=== PATIENT | female | born 1935 | race Caucasian/White ===

== ENCOUNTER 2018-07-25 22:24 | Inpatient (IN) ==
--- OUTSIDE RECORDS SUMMARY | 2018-07-25 22:29 | External Medical Summary | Continuity of Care Document ---
:1935 Author Name Taj Centeno Address Unavailable Unavailable , Care Team Providers Name Role Phone Unavailable Unavailable Unavailable Josephine Lisa M.D. Unavailable [email or web address] PCP, [email or web address] Unavailable Unavailable Unavailable Unavailable Unavailable Problems Esophageal reflux (530.81) (K21.9) Allergies and Adverse Reactions Allergy history not documented Medications Omeprazole 20 MG Oral Capsule Delayed Release; TAKE 1 CAPSULE DAILY. Taryn Lisa Start: 12-Jun-2011 Quantity: 30 Refills: 5 Procedures Procedures not documented Immunizations Immunizations not documented Plan of Treatment Planned Observations Planned Goals not documented Results No Known Results Results not documented
[2018-07-25] MEDS ORDERED: SODIUM CHLORIDE 0.9% 500 ML IV SCH (22:45)
[2018-07-25 23:02] LABS: Basophils # (auto) 0.02 K/uL (0-0.2); Basophils % (auto) 0.2 %; Eosinophils # (auto) 0.14 K/uL (0-0.5); Eosinophils % (auto) 1.7 %; Hematocrit (blood only) 39.7 % (37-47); Immature Granulocytes # (auto) 0.02 K/uL (0.00-0.02); Immature Granulocytes % (auto) 0.2 %; Lymphocytes # (auto) 2.19 K/uL (1.2-3.4); Mean Corpuscular Hgb Conc 32.7 g/dL (32-36); Mean Corpuscular Volume 88.6 fL (80-100); Mean Platelet Volume 9.5 fL (7.4-10.4); Monocytes # (auto) 0.69 K/uL (0.11-0.59); Monocytes % (auto) 8.5 %; Neutrophils # (auto) 5.05 K/uL (1.4-6.5); Neutrophils % (auto) 62.4 %; Platelet Count 173 K/uL (130-400); RDW Coefficient of Variation 13.9 % (11.5-14.5); RDW Standard Deviation 45.1 fL (36.4-46.3); Red Blood Count 4.48 M/uL (4.2-5.4); White Blood Count 8.11 K/uL (4.8-10.8)
[2018-07-25 23:13] LABS: INR 2.1 (0.9-1.1); Partial Thromboplastin Ratio 1.2; Partial Thromboplastin Time 32.8 Seconds (21.0-31.0); Prothrombin Time 20.3 Seconds (9.0-12.0)
[2018-07-25 23:18] LABS: Alanine Aminotransferase 26 U/L (12-78); Albumin Level 3.2 gm/dl (3.4-5.0); Aspartate Aminotransferase 21 U/L (15-37); BUN Creatinine Ratio 22.2 (10-20); Blood Urea Nitrogen 22 mg/dl (7-18); Calcium 9.4 mg/dl (8.5-10.1); Carbon Dioxide 28 mmol/L (21-32); Chloride 106 mmol/L (98-107); Creatinine Clr Calc Pharmacy 46.2 ml/min; Est GFR (African American) 60.2; Glucose 127 mg/dl (70-99); Magnesium 1.9 mg/dl (1.8-2.4); Potassium 3.2 mmol/L (3.5-5.1); Sodium 142 mmol/L (136-145)
[2018-07-25 23:28] LABS: Albumin Globulin Ratio 0.9 (0.9-2); Alkaline Phosphatase 98 U/L (45-117); Bilirubin,Total 0.8 mg/dl (0.2-1); Globulin 3.6 gm/dl (2.5-4.0); Total Protein 6.8 gm/dl (6.4-8.2); Troponin I < 0.015 ng/ml (0-0.045)
[2018-07-25 23:56] LABS: Appearance Urine Clear (Clear); Bilirubin Urine Negative (Negative); Blood Urine 1+ (Negative); Color Urine Yellow; Epithelial Cell Urine Auto >30 /lpf (0-5); Glucose Urine UA Negative (Negative); Ketones Urine Negative (Negative); Leukocyte Esterase Urine 3+ (Negative); Nitrite Urine Negative (Negative); Protein Urine Negative (Negative); RBC Urine Automated 0-4 /hpf (0-4); Specific Gravity Urine 1.013 (1.000-1.030); Urobilinogen Urine Negative (Negative); WBC Urine Automated >30 /hpf (0-5); pH Urine 5.5 (4.5-7.5)
[2018-07-26 00:13] LABS: Bacteria Urine Automated 1+ (Negative)
[2018-07-26 00:28] LABS: Appearance Urine Clear (Clear); Bilirubin Urine Negative (Negative); Blood Urine 1+ (Negative); Color Urine Yellow; Epithelial Cell Urine Auto >30 /lpf (0-5); Glucose Urine UA Negative (Negative); Ketones Urine Negative (Negative); Leukocyte Esterase Urine 3+ (Negative); Nitrite Urine Negative (Negative); Protein Urine Negative (Negative); RBC Urine Automated 0-4 /hpf (0-4); Urobilinogen Urine Negative (Negative); WBC Urine Automated >30 /hpf (0-5)
[2018-07-26] MEDS ORDERED: dilTIAZem HCl 5 MG/ML 5 ML VIAL IV STA (00:37)
[2018-07-26] MEDS ORDERED: METOPROLOL TARTRATE 1 MG/ML VIAL IV STA (00:46)
[2018-07-26 00:48] LABS: Bacteria Urine Automated 1+ (Negative)
[2018-07-26] MEDS ORDERED: MAGNESIUM SULFATE / D5W 1 GM/100 ML BAG IV ONE (00:48)
[2018-07-26] MEDS ORDERED: POTASSIUM CHLORIDE 20 MEQ TABCR PO STA ×2 (00:48→01:40)
[2018-07-26] MEDS ORDERED: METOPROLOL TARTRATE 1 MG/ML VIAL IV ONE (00:54)
[2018-07-26] MEDS ORDERED: POTASSIUM CHLORIDE 10 MEQ TABCR PO STA ×2 (01:10→02:40)
[2018-07-26] MEDS ORDERED: METOPROLOL TARTRATE 50 MG TAB PO STA (01:33)
--- NOTE | 2018-07-26 01:33 | History & Physical Report ---
Date of Service July 26, 2018 Assessment & Plan (1) Atrial flutter: PAF/AFlutter Patient converted to NSR at the ER. Possibly from uncontrolled BP 2 secondary to dietary indiscretion, hypokalemia INR therapeutic hyperlipidemia on statin Rx Hypokalemia secondary to diuretic Rx mitral regurgitation as per records Hyperglycemia rule out DM skin cancer as per records OBS PCU Continue home beta-juan at current dose, may need titration Replace potassium, hold home diuretic for now Cardiology consult RE recurrent AF/AFl Check hemoglobin A1c DVT prophylaxis. Coumadin INR goal between 2 and 3 Full code History of Present Illness Chief Complaint: Palpitations Primary Care Provider: Pam Richardson, History obtained from patient, family, and records. Medical history significant for PAF (asymptomatic tachybradycardia syndrome not yet requiring PPM as per outpatient Cardiology records) on Coumadin, hypertension, hyperlipidemia, mitral regurgitation as per records, skin cancer as per records. Recent confinement January 2013 for pyelonephritis. Patient noted bothersome palpitations over the weekend without chest pain and shortness of breath. Patient also noted achy headache symptoms. Compliant with home meds. Denies unusual stress. Denies fluid retention. SBP somewhat higher than usual at home 190s. Patient admits to dietary indiscretion, pepperoni pizza consumption etc. At the ER, patient noted to be in rapid A. flutter , cardiac rate 140s. IV Cardizem bolus given at the ER. Patient converted to NSR at the ER. Patient currently uncomfortable going home. Medical History as above TTE July 2017 The left ventricular cavity size is normal. The LV wall thickness is mildly increased (concentric). The left ventricular wall motion is normal. The qualitative LV ejection fraction is 5559% (normal). The left atrium is normal sized. The mitral valve leaflets thickness is mildly increased. Mild mitral regurgitation is present. Moderate tricuspid regurgitation is present. The estimated pulmonary artery systolic pressure is 3540mm Hg. Surgical History : Cystoscopy, BTL Family History : Prostate cancer, A. 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 rofecoxib Allergy Face fiery Verified 07/26/18 01:46 red, no hives or swelling. Sulfa (Sulfonamide Allergy Unknown Verified 07/26/18 01:46 Antibiotics) tetracycline Allergy HIVES Verified 07/26/18 01:46 Home Medications Home Medications Medication Instructions Recorded Confirmed Type atorvastatin 10 mg PO DAILY 07/26/18 07/26/18 History hydrochlorothiazide 12.5 mg PO DAILY 07/26/18 07/26/18 History lisinopril 5 mg PO DAILY 07/26/18 07/26/18 History metoprolol tartrate 25 mg PO BID 07/26/18 07/26/18 History omeprazole 20 mg PO QAM 07/26/18 07/26/18 History temazepam 7.5 mg PO HS 07/26/18 07/26/18 History warfarin 5 mg PO DAILY 07/26/18 07/26/18 History Past Med/Surg History Medical History A-fib High blood pressure Social History Preferred Language: Hebrew Communication Ability: Effective Blender Required: No Beliefs That Will Affect Care: None Current Living Situation: Spouse and Family Other Information That Helps Us Care for You: No Feels Safe at Home: Yes Safety Concerns: Feels Safe At This Time Smoking Status: Never smoker Do You Dip or Chew Tobacco: No Second Hand Exposure: No Hx Alcohol Use: Yes Hx Substance Use: No Review of Systems Review of Systems: As per HPI, all 10 systems reviewed, all other ROS negative Physical Exam Physical Exam: GENERAL: Pleasant, slightly anxious, no respiratory distress SKIN: Normal color, warm HEENT: [place] palpebral conjunctivae, no ptosis, dry buccal mucosa NECK : Supple, no tenderness CHEST : CTA, no tenderness HEART : RRR, systolic murmur ABDOMEN: Some distention, nontender EXTREMITIES : No LE swelling/tenderness, no other conspicuous deformities noted NEUROLOGIC : Coherent, no facial asymmetry, no other gross focality Results & Data Vital Signs (Past 12 Hours) Vital Signs Temp Pulse Pulse Resp BP BP Pulse Ox 07/26/18 00:45 72 16 154/85 H 95 07/26/18 00:36 141 H 18 168/102 H 95 07/26/18 00:15 71 18 144/89 H 98 07/25/18 23:35 76 14 159/81 H 95 07/25/18 22:57 75 16 155/91 H 96 07/25/18 22:31 36.8 C 74 18 166/85 H 96 Laboratory Results Laboratory Results WBC 8.11 K/uL (4.8-10.8) 07/25/18 22:47 RBC 4.48 M/uL (4.2-5.4) 07/25/18 22:47 Hgb 13.0 g/dL (12.0-16.0) 07/25/18 22:47 Hct 39.7 % (37-47) 07/25/18 22:47 MCV 88.6 fL (80-100) 07/25/18 22:47 MCH 29.0 pg (25-34) 07/25/18 22:47 MCHC 32.7 g/dL (32-36) 07/25/18 22:47 RDW Std Deviation 45.1 fL (36.4-46.3) 07/25/18 22:47 RDW Coeff of Brenna 13.9 % (11.5-14.5) 07/25/18 22:47 Plt Count 173 K/uL (130-400) 07/25/18 22:47 MPV 9.5 fL (7.4-10.4) 07/25/18 22:47 Immature Gran % (Auto) 0.2 % 07/25/18 22:47 Neut % (Auto) 62.4 % 07/25/18 22:47 Lymph % (Auto) 27.0 % 07/25/18 22:47 [place] % (Auto) 8.5 % 07/25/18 22:47 Eos % (Auto) 1.7 % 07/25/18 22:47 Baso % (Auto) 0.2 % 07/25/18 22:47 Immature Gran # (Auto) 0.02 K/uL (0.00-0.02) 07/25/18 22:47 Neut # (Auto) 5.05 K/uL (1.4-6.5) 07/25/18 22:47 Lymph # (Auto) 2.19 K/uL (1.2-3.4) 07/25/18 22:47 [place] # (Auto) 0.69 K/uL (0.11-0.59) H 07/25/18 22:47 Eos # (Auto) 0.14 K/uL (0-0.5) 07/25/18 22:47 Baso # (Auto) 0.02 K/uL (0-0.2) 07/25/18 22:47 PT 20.3 Seconds (9.0-12.0) H 07/25/18 22:47 INR 2.1 (0.9-1.1) H 07/25/18 22:47 APTT 32.8 Seconds (21.0-31.0) H 07/25/18 22:47 PTT Ratio 1.2 07/25/18 22:47 Sodium 142 mmol/L (136-145) 07/25/18 22:47 Potassium 3.2 mmol/L (3.5-5.1) L 07/25/18 22:47 Chloride 106 mmol/L (98-107) 07/25/18 22:47 Carbon Dioxide 28 mmol/L (21-32) 07/25/18 22:47 Anion Gap 8.0 (3-11) 07/25/18 22:47 BUN 22 mg/dl (7-18) H 07/25/18 22:47 Creatinine 0.99 mg/dl (0.6-1.2) 07/25/18 22:47 Est Cr Clr Drug Dosing 46.2 ml/min 07/25/18 22:47 Est GFR ( Amer) 60.2 07/25/18 22:47 Est GFR (Non-Af Amer) 52.0 07/25/18 22:47 BUN/Creatinine Ratio 22.2 (10-20) H 07/25/18 22:47 Glucose 127 mg/dl (70-99) H 07/25/18 22:47 Calcium 9.4 mg/dl (8.5-10.1) 07/25/18 22:47 Magnesium 1.9 mg/dl (1.8-2.4) 07/25/18 22:47 Total Bilirubin 0.8 mg/dl (0.2-1) 07/25/18 22:47 AST 21 U/L (15-37) 07/25/18 22:47 ALT 26 U/L (12-78) 07/25/18 22:47 Alkaline Phosphatase 98 U/L (45-117) 07/25/18 22:47 Troponin I < 0.015 ng/ml (0-0.045) 07/25/18 22:47 Total Protein 6.8 gm/dl (6.4-8.2) 07/25/18 22:47 Albumin 3.2 gm/dl (3.4-5.0) L 07/25/18 22:47 Globulin 3.6 gm/dl (2.5-4.0) 07/25/18 22:47 Albumin/Globulin Ratio 0.9 (0.9-2) 07/25/18 22:47 TSH 3.410 uIu/ml (0.300-4.500) 07/25/18 22:47 Urine Color Yellow 07/26/18 00:16 Urine Appearance Clear (Clear) 07/26/18 00:16 Urine pH 6.0 (4.5-7.5) 07/26/18 00:16 Ur Specific [place] 1.010 (1.000-1.030) 07/26/18 00:16 Urine Protein Negative (Negative) 07/26/18 00:16 Urine Glucose (UA) Negative (Negative) 07/26/18 00:16 Urine Ketones Negative (Negative) 07/26/18 00:16 Urine Blood 1+ (Negative) H 07/26/18 00:16 Urine Nitrite Negative (Negative) 07/26/18 00:16 Urine Bilirubin Negative (Negative) 07/26/18 00:16 Urine Urobilinogen Negative (Negative) 07/26/18 00:16 Ur Leukocyte Esterase 3+ (Negative) H 07/26/18 00:16 Urine WBC (Auto) >30 /hpf (0-5) H 07/26/18 00:16 Urine RBC (Auto) 0-4 /hpf (0-4) 07/26/18 00:16 U Hyaline Cast (Auto) 1-5 /lpf (0-5) 07/26/18 00:16 U Epithel Cells (Auto) >30 /lpf (0-5) H 07/26/18 00:16 Urine Bacteria (Auto) 1+ (Negative) H 07/26/18 00:16 Ur Renal Epithelial Cell Not Reportable 07/26/18 00:16 Diagnostic Findings Chest x-ray as per my interpretation elevated right hemidiaphragm, no congestion EKG as per my interpretation : Rate 140, atrial flutter ST depression, inferior and anterolateral leads. CT head initial read negative (1) Atrial flutter Atrial flutter type: typical Qualified Code(s): I48.3 - Typical atrial flutter
[2018-07-26] MEDS ORDERED: WARFARIN SOD 5 MG TAB PO ONE (01:43)
--- NOTE | 2018-07-26 02:09 | Emergency Department Note ---
History of Present Illness General Chief complaint: Arrhythmia/Palpitations History of Present Illness Maximum Pain Intensity: 1 This 83-year-old presents to the ER complaining of heart racing and feeling weak Location: Generalized Quality: Heart racing Severity: Moderate Duration: Tonight Timing: Tonight Context: Patient was concerned and came in Modifying factors: better with nothing; worse with nothing Patient has a history of A. fib. Symptoms felt somewhat similar. Patient denies chest pain, dyspnea, fevers, abdominal pain. Home Medications Home Medications Medication Instructions Recorded Confirmed Type atorvastatin 10 mg PO DAILY 07/26/18 07/26/18 History hydrochlorothiazide 12.5 mg PO DAILY 07/26/18 07/26/18 History lisinopril 5 mg PO DAILY 07/26/18 07/26/18 History metoprolol tartrate 25 mg PO BID 07/26/18 07/26/18 History omeprazole 20 mg PO QAM 07/26/18 07/26/18 History temazepam 7.5 mg PO HS 07/26/18 07/26/18 History warfarin 5 mg PO DAILY 07/26/18 07/26/18 History Allergies Allergy/AdvReac Type Severity Reaction Status Date / Time simvastatin Allergy Unknown Muscle Verified 07/26/18 01:46 aches. rofecoxib Allergy Face fiery Verified 07/26/18 01:46 red, no hives or swelling. Sulfa (Sulfonamide Allergy Unknown Verified 07/26/18 01:46 Antibiotics) tetracycline Allergy HIVES Verified 07/26/18 01:46 Past Med/Surg History Medical History A-fib High blood pressure Social History Feels Safe at Home: Yes Smoking Status: Never smoker Review of Systems All systems reviewed & are unremarkable except as noted in HPI & below Physical Exam Vital Signs Vital Signs - 24 hr 07/25/18 22:31 07/25/18 22:57 07/25/18 23:35 Temperature 36.8 C Temperature Source Oral Sepsis Recent Fever Within 48 Hours No Sepsis New/Unexplained Change in Mental Status No Sepsis Action Taken by Nursing No Action Required Pulse Rate 74 Pulse Rate [Apical] 75 76 Pulse Rhythm Regular Pulse Rhythm [Apical] Regular Regular Respiratory Rate 18 16 14 Respiratory Effort / Characteristics Non-Labored Spontaneous Respiratory Depth Normal Normal Normal Respiratory Pattern Regular Blood Pressure 166/85 H Blood Pressure [Right Arm] 155/91 H 159/81 H Blood Pressure Mean 112 Blood Pressure Mean [Right Arm] 112 107 Blood Pressure Position Sitting Blood Pressure Position [Right Arm] Pulse Oximetry 96 96 95 Oxygen Delivery Method Room Air Room Air Room Air 07/26/18 00:15 07/26/18 00:36 07/26/18 00:45 Temperature Temperature Source Sepsis Recent Fever Within 48 Hours Sepsis New/Unexplained Change in Mental Status Sepsis Action Taken by Nursing Pulse Rate Pulse Rate [Apical] 71 141 H 72 Pulse Rhythm Pulse Rhythm [Apical] Regular Regular Regular Respiratory Rate 18 18 16 Respiratory Effort / Characteristics Non-Labored Spontaneous Respiratory Depth Normal Normal Normal Respiratory Pattern Blood Pressure Blood Pressure [Right Arm] 144/89 H 168/102 H 154/85 H Blood Pressure Mean Blood Pressure Mean [Right Arm] 107 124 108 Blood Pressure Position Blood Pressure Position [Right Arm] Pulse Oximetry 98 95 95 Oxygen Delivery Method Room Air Room Air Room Air 07/26/18 01:57 Temperature Temperature Source Sepsis Recent Fever Within 48 Hours Sepsis New/Unexplained Change in Mental Status Sepsis Action Taken by Nursing Pulse Rate Pulse Rate [Apical] 75 Pulse Rhythm Pulse Rhythm [Apical] Regular Respiratory Rate 16 Respiratory Effort / Characteristics Non-Labored Spontaneous Respiratory Depth Normal Respiratory Pattern Regular Blood Pressure Blood Pressure [Right Arm] 182/78 H Blood Pressure Mean Blood Pressure Mean [Right Arm] 112 Blood Pressure Position Blood Pressure Position [Right Arm] Sitting Pulse Oximetry 100 Oxygen Delivery Method Room Air VITALS: Vitals are noted on the nurse's note and reviewed by myself. Vital signs stable. GENERAL: Positive female, in no acute distress, nondiaphoretic, well-developed well-nourished. SKIN: The skin was without rashes, erythema, edema, or bruising. There is no tenting of the skin. Capillary reflex less than 2 seconds. HEAD: Normocephalic atraumatic. EARS: External auditory canals clear EYES: Pupils equal round and reactive to light and accommodation. Conjunctivae without injection, sclerae without icterus. Extraocular movements intact. NOSE: Patent, turbinates without inflammation or discharge. MOUTH: Mucous membranes moist. Pharynx without erythema or exudate. Uvula midline. Airway patent. Tongue does not deviate. NECK: Supple without nuchal rigidity. No lymphadenopathy. No thyromegaly. Cervical spine is nontender. No JVD. HEART: Regular rate and rhythm LUNGS: Clear to auscultation bilaterally without wheezes, rales or rhonchi. No retractions or accessory muscle use. ABDOMEN: Positive bowel sounds x 4. Normal tympanic percussion. Soft, nontender, without masses or organomegaly. Staples sign negative. No guarding or rebound tenderness. No CVA tenderness MUSCULOSKELETAL: No muscle atrophy, erythema, or edema noted. NEURO: Patient was alert and oriented to person place and time. Normal sensation to light and sharp touch. No focal neurological deficits. Course Administered Medications Discontinued Medications Diltiazem HCl (Cardizem) 10 mg IV NOW STA Stop: 07/26/18 00:38 Last Admin: 07/26/18 00:42 Dose: 10 mg Documented by: [id number] Cosigned by: [id number] Sodium Chloride (Nss) 500 mls @ 999 mls/hr IV .Q31M ADINA Stop: 07/25/18 23:15 Last Infusion: 07/25/18 23:28 Dose: 0 mls/hr Documented by: [id number] Admin: 07/25/18 22:57 Dose: 999 mls/hr Documented by: [id number] Magnesium Sulfate/Dextrose (Magnesium Sulfate / D5w) 1 gm in 100 mls @ 100 mls/hr IV ONE ONE Stop: 07/26/18 01:47 Last Infusion: 07/26/18 02:03 Dose: 0 mls/hr Documented by: [id number] Admin: 07/26/18 00:57 Dose: 100 mls/hr Documented by: [id number] Metoprolol Tartrate (Lopressor) Confirm Administered Dose 5 mg IV .STK-MED ONE Stop: 07/26/18 00:55 Last Admin: 07/26/18 00:56 Dose: Not Given Documented by: [id number] Metoprolol Tartrate (Lopressor) 25 mg PO NOW STA Stop: 07/26/18 01:34 Last Admin: 07/26/18 01:50 Dose: 25 mg Documented by: [id number] Potassium Chloride (Klor-Con M20) 40 meq PO NOW STA Stop: 07/26/18 00:49 Last Admin: 07/26/18 00:57 Dose: 40 meq Documented by: [id number] Potassium Chloride (Klor-Con M10) 30 meq PO NOW STA Stop: 07/26/18 01:11 Last Admin: 07/26/18 01:50 Dose: 30 meq Documented by: [id number] Potassium Chloride (Klor-Con M20) 40 meq PO NOW STA Stop: 07/26/18 01:41 Last Admin: 07/26/18 01:50 Dose: Not Given Documented by: [id number] Warfarin Sodium (Coumadin) 5 mg PO NOW ONE Stop: 07/26/18 01:44 Last Admin: 07/26/18 01:50 Dose: 5 mg Documented by: [id number] Cosigned by: [id number] Medical Decision Making Medical Records Attestation: I reviewed the patient's medical records. Home Medications Current Medication List: was personally reviewed by me Laboratory Data Attestation: I reviewed the patient's lab results. Result diagrams: 07/25/18 22:47 07/25/18 22:47 Lab Results 07/25/18 07/25/18 07/25/18 Range/Units 22:47 22:47 22:47 WBC 8.11 (4.8-10.8) K/uL RBC 4.48 (4.2-5.4) M/uL Hgb 13.0 (12.0-16.0) g/dL Hct 39.7 (37-47) % MCV 88.6 (80-100) fL MCH 29.0 (25-34) pg MCHC 32.7 (32-36) g/dL RDW Std Deviation 45.1 (36.4-46.3) fL RDW Coeff of Brenna 13.9 (11.5-14.5) % Plt Count 173 (130-400) K/uL MPV 9.5 (7.4-10.4) fL Immature Gran % (Auto) 0.2 % Neut % (Auto) 62.4 % Lymph % (Auto) 27.0 % [place] % (Auto) 8.5 % Eos % (Auto) 1.7 % Baso % (Auto) 0.2 % Immature Gran # (Auto) 0.02 (0.00-0.02) K/uL Neut # (Auto) 5.05 (1.4-6.5) K/uL Lymph # (Auto) 2.19 (1.2-3.4) K/uL [place] # (Auto) 0.69 H (0.11-0.59) K/uL Eos # (Auto) 0.14 (0-0.5) K/uL Baso # (Auto) 0.02 (0-0.2) K/uL PT 20.3 H (9.0-12.0) Seconds INR 2.1 H (0.9-1.1) APTT 32.8 H (21.0-31.0) Seconds PTT Ratio 1.2 Sodium 142 (136-145) mmol/L Potassium 3.2 L (3.5-5.1) mmol/L Chloride 106 (98-107) mmol/L Carbon Dioxide 28 (21-32) mmol/L Anion Gap 8.0 (3-11) BUN 22 H (7-18) mg/dl Creatinine 0.99 (0.6-1.2) mg/dl Est Cr Clr Drug Dosing 46.2 ml/min Est GFR ( Amer) 60.2 Est GFR (Non-Af Amer) 52.0 BUN/Creatinine Ratio 22.2 H (10-20) Glucose 127 H (70-99) mg/dl Calcium 9.4 (8.5-10.1) mg/dl Magnesium 1.9 (1.8-2.4) mg/dl Total Bilirubin 0.8 (0.2-1) mg/dl AST 21 (15-37) U/L ALT 26 (12-78) U/L Alkaline Phosphatase 98 (45-117) U/L Troponin I < 0.015 (0-0.045) ng/ml Total Protein 6.8 (6.4-8.2) gm/dl Albumin 3.2 L (3.4-5.0) gm/dl Globulin 3.6 (2.5-4.0) gm/dl Albumin/Globulin Ratio 0.9 (0.9-2) TSH 3.410 (0.300-4.500) uIu/ml Urine Color Urine Appearance (Clear) Urine pH (4.5-7.5) Ur Specific [place] (1.000-1.030) Urine Protein (Negative) Urine Glucose (UA) (Negative) Urine Ketones (Negative) Urine Blood (Negative) Urine Nitrite (Negative) Urine Bilirubin (Negative) Urine Urobilinogen (Negative) Ur Leukocyte Esterase (Negative) Urine WBC (Auto) (0-5) /hpf Urine RBC (Auto) (0-4) /hpf U Hyaline Cast (Auto) (0-5) /lpf U Epithel Cells (Auto) (0-5) /lpf Urine Bacteria (Auto) (Negative) Ur Renal Epithelial Cell 07/25/18 07/26/18 Range/Units 23:47 00:16 WBC (4.8-10.8) K/uL RBC (4.2-5.4) M/uL Hgb (12.0-16.0) g/dL Hct (37-47) % MCV (80-100) fL MCH (25-34) pg MCHC (32-36) g/dL RDW Std Deviation (36.4-46.3) fL RDW Coeff of Brenna (11.5-14.5) % Plt Count (130-400) K/uL MPV (7.4-10.4) fL Immature Gran % (Auto) % Neut % (Auto) % Lymph % (Auto) % [place] % (Auto) % Eos % (Auto) % Baso % (Auto) % Immature Gran # (Auto) (0.00-0.02) K/uL Neut # (Auto) (1.4-6.5) K/uL Lymph # (Auto) (1.2-3.4) K/uL [place] # (Auto) (0.11-0.59) K/uL Eos # (Auto) (0-0.5) K/uL Baso # (Auto) (0-0.2) K/uL PT (9.0-12.0) Seconds INR (0.9-1.1) APTT (21.0-31.0) Seconds PTT Ratio Sodium (136-145) mmol/L Potassium (3.5-5.1) mmol/L Chloride (98-107) mmol/L Carbon Dioxide (21-32) mmol/L Anion Gap (3-11) BUN (7-18) mg/dl Creatinine (0.6-1.2) mg/dl Est Cr Clr Drug Dosing ml/min Est GFR ( Amer) Est GFR (Non-Af Amer) BUN/Creatinine Ratio (10-20) Glucose (70-99) mg/dl Calcium (8.5-10.1) mg/dl Magnesium (1.8-2.4) mg/dl Total Bilirubin (0.2-1) mg/dl AST (15-37) U/L ALT (12-78) U/L Alkaline Phosphatase (45-117) U/L Troponin I (0-0.045) ng/ml Total Protein (6.4-8.2) gm/dl Albumin (3.4-5.0) gm/dl Globulin (2.5-4.0) gm/dl Albumin/Globulin Ratio (0.9-2) TSH (0.300-4.500) uIu/ml Urine Color Yellow Yellow Urine Appearance Clear Clear (Clear) Urine pH 5.5 6.0 (4.5-7.5) Ur Specific [place] 1.013 1.010 (1.000-1.030) Urine Protein Negative Negative (Negative) Urine Glucose (UA) Negative Negative (Negative) Urine Ketones Negative Negative (Negative) Urine Blood 1+ H 1+ H (Negative) Urine Nitrite Negative Negative (Negative) Urine Bilirubin Negative Negative (Negative) Urine Urobilinogen Negative Negative (Negative) Ur Leukocyte Esterase 3+ H 3+ H (Negative) Urine WBC (Auto) >30 H >30 H (0-5) /hpf Urine RBC (Auto) 0-4 0-4 (0-4) /hpf U Hyaline Cast (Auto) 1-5 1-5 (0-5) /lpf U Epithel Cells (Auto) >30 H >30 H (0-5) /lpf Urine Bacteria (Auto) 1+ H 1+ H (Negative) Ur Renal Epithelial Cell Not Reportable Not Reportable Imaging Data Attestation: I personally reviewed and interpreted this imaging study as follows : MDM Narrative Prior records/ancillary studies reviewed and summarized above. Nursing notes reviewed. Additional history obtained from family. The patient's history was concerning for heart racing and weakness. Differential diagnosis: Etiologies such as metabolic, infection, hypo/hyperglycemia, electrolyte abnormalities, cardiac sources, intracerebral event, toxicologic, neurologic, as well as others were entertained. Physical examination: As above. ER treatment provided: IV Lock Cardizem, IV fluids On reassessment the patient felt better. Diagnostics interpretation by me: ECG: Normal sinus, normal intervals, no acute ST-T wave changes. Impression normal sinus rhythm interpreted by myself Repeat EKG shows a flutter 2-1.. Patient was given Cardizem and converted. The labs revealed hypokalemia this is replaced orally. Negative troponin Imaging studies: Chest x-ray with no acute consolidation, pneumothorax or free air per my interpretation Negative head scan per radiology Consultation: A consultation was placed with the hospitalist, Dr Candelaria. The case was discussed and diagnostics were reviewed. The patient was evaluated in the ER for further treatment. Exam and history seem consistent with atrial flutter with weakness and heart racing. Patient converted with Cardizem. Patient requested to stay. Medicine was consulted. By the evaluation outlined above emergent etiologies such as infection, intracerebral event, toxologic, neurologic, abnormalities blood glucose, metabolic, as well as others were deemed relatively unlikely. The pt informed about the findings as listed above. All questions were answered and pleased with the treatment. Case reviewed with my attending The chart was completed utilizing [employer] Speech voice recognition software. Grammatical errors, random word insertions, pronoun errors, and incomplete sentences are an occassional consequence of this system due to software limitations, ambient noise, and hardware issues. Any formal questions or lynette rns about the content, text, or information contained within the body of this dictation should be directly addressed to the physician banking assistant for clarification. Impression & Plan Atrial flutter Discharge Plan Visit Data Chief Complaint: Arrhythmia/Palpitations ED Provider: Alfonso Logan ED Midlevel Provider: Nya Livingston Discharge Problem: Atrial flutter Patient Disposition: Being Evaluated by Hospitalist Condition: Fair Forms Stand Alone Forms: My [facility] [place] [employer] Prescriptions Prescriptions: No Action atorvastatin 10 mg tablet 10 mg PO DAILY RF: 0 temazepam 7.5 mg capsule 7.5 mg PO HS RF: 0 warfarin 5 mg tablet 5 mg PO DAILY RF: 0 omeprazole 20 mg capsule,delayed release(DR/EC) 20 mg PO QAM RF: 0 lisinopril 5 mg tablet 5 mg PO DAILY RF: 0 hydrochlorothiazide 25 mg tablet 12.5 mg PO DAILY RF: 0 metoprolol tartrate 25 mg tablet 25 mg PO BID RF: 0 Referrals Referrals: Pam Richardson DO [Primary Care Provider] - Discharge Problem: Atrial flutter Qualifiers: Atrial flutter type: typical Qualified Code(s): I48.3 - Typical atrial flutter
--- NOTE | 2018-07-26 02:15 | Emergency Department Note ---
ED Visit Note I have personally evaluated this patient examined her and reviewed the pertinent labs and data. I have discussed the case with Eliane Livingston, the physician orthopaedic physician assistant and agree with the plan. Please refer to the PA note. This patient has had a rapid heart rate. When she came in she was in normal sinus she did develop rapid A. fib/flutter and was given Cardizem and immediately converted. She has no chest pain. her potassium is mildly low at 3.2 and her mag is also mildly low at 1.9 .she was repleted with these. She looks well on my exam and I do think she needs to be admitted/observe for further treatment and evaluation of a rapid A. fib and to do a cardiac rule out. . : Atrial flutter Qualifiers: Atrial flutter type: typical Qualified Code(s): I48.3 - Typical atrial flutter
[2018-07-26] MEDS ORDERED: TRAMADOL HCL 50 MG TABLET PO PRN (02:40)
[2018-07-26] MEDS ORDERED: LACTATED RINGER'S 1,000 ML IV ONE (02:40)
[2018-07-26] MEDS ORDERED: NITROGLYCERIN SL 0.4 MG/TAB TAB SL PRN (02:40)
[2018-07-26] MEDS ORDERED: PROMETHAZINE HCL 12.5 MG in SODIUM CHLORIDE 0.9% 50 ML IV PRN (02:40)
[2018-07-26] MEDS ORDERED: ACETAMINOPHEN 325 MG TAB PO PRN (02:40)
[2018-07-26 05:57] LABS: Basophils # (auto) 0.03 K/uL (0-0.2); Basophils % (auto) 0.4 %; Eosinophils # (auto) 0.13 K/uL (0-0.5); Eosinophils % (auto) 1.5 %; Hematocrit (blood only) 40.9 % (37-47); Hemoglobin 13.5 g/dL (12.0-16.0); Immature Granulocytes # (auto) 0.02 K/uL (0.00-0.02); Immature Granulocytes % (auto) 0.2 %; Lymphocytes # (auto) 2.53 K/uL (1.2-3.4); Lymphocytes % (auto) 29.8 %; Mean Corpuscular Volume 88.5 fL (80-100); Mean Platelet Volume 9.3 fL (7.4-10.4); Monocytes % (auto) 9.4 %; Neutrophils # (auto) 4.99 K/uL (1.4-6.5); Neutrophils % (auto) 58.7 %; Platelet Count 178 K/uL (130-400); RDW Coefficient of Variation 13.6 % (11.5-14.5); RDW Standard Deviation 44.1 fL (36.4-46.3); Red Blood Count 4.62 M/uL (4.2-5.4)
[2018-07-26 06:27] LABS: BUN Creatinine Ratio 19.9 (10-20); Creatinine Clr Calc Pharmacy 55.3 ml/min; Est GFR (African American) 75.6; Est GFR (Non-African American) 65.3; INR 1.9 (0.9-1.1); Potassium 4.1 mmol/L (3.5-5.1); Prothrombin Time 18.8 Seconds (9.0-12.0)
--- NOTE | 2018-07-26 06:43 | CT Scan Report ---
CT OF THE HEAD WITHOUT CONTRAST CLINICAL HISTORY: Headache. Fall. Anticoagulation. COMPARISON STUDY: No previous studies for comparison. CT DOSE: 614.27 mGy.cm TECHNIQUE: Helical axial images of the head were obtained without IV contrast. Automated exposure con trol was utilized for the study. A dose lowering technique was utilized adhering to the principles o f ALARA. FINDINGS: No acute intracranial hemorrhage, midline shift or mass effect is present. Jugular system i s normal. Basilar cisterns are patent. There are no extra-axial collections. There are no findings to suggest acute dural sinus thrombosis or acute territorial infarct. No calvarial fracture is present. Visualized portions of the sinuses and mastoid air cells are clear. IMPRESSION: 1. No acute intracranial findings. 2. No calvarial fracture. Electronically signed by: Inocencio Rivera M.D. 07/26/2018 6:42 AM
[2018-07-26 06:49] LABS: Estimated Average Glucose 117 mg/dl; Hemoglobin A1C 5.7 % (4.5-5.6)
--- NOTE | 2018-07-26 06:53 | XRay Report ---
XR chest 2V routine CLINICAL HISTORY: 83 years-old Female presenting with weakness. TECHNIQUE: PA and lateral views of the chest were obtained. COMPARISON: 04/07/2012 and 11/16/2014. FINDINGS: Atherosclerosis of the aortic arch. Cardiac silhouette mildly enlarged. Lungs are hyperinflated. Calc ified granuloma suggested at the left lung base. No other focal opacity. No pleural effusion or pneum othorax. Degenerative changes of the thoracic spine. Upper abdomen normal. IMPRESSION: 1. Hyperinflation may suggest emphysema or other obstructive lung disease. No focal infiltrate to martinez ggest pneumonia. Electronically signed by: Thanh Garcia M.D. 07/26/2018 6:52 AM
[2018-07-26] MEDS ORDERED: METOPROLOL TARTRATE 25 MG TAB PO SCH ×3 (09:00→21:00)
--- NOTE | 2018-07-26 09:06 | Cardiology Consultation ---
Date of Consultation July 26, 2018 Assessment & Plan (1) Atrial flutter: Telemetry reveals paroxysmal supraventricular tachycardia versus atrial flutter. Patient with history of asymptomatic tachybradycardia syndrome. With history of atrial fibrillation, recommend transition of metoprolol to sotalol 80 mg twice daily. Will monitor telemetry as well as daily ECG. Continue Coumadin for goal INR of 2.0-3.0. Maintain serum potassium level greater than 4.0 and serum magnesium level greater than 2.0 gm/dL. (2) HTN (hypertension): Uncontrolled on admission. Improved this a.m. Continue to monitor. Continue outpatient medications. (3) Paroxysmal atrial fibrillation: Discontinue metoprolol in favor of sotalol loading as noted above. Daily ECG. Continue warfarin. (4) H/O tachycardia-bradycardia syndrome: Potential need for pacemaker implantation discussed with patient. All questions answered satisfaction. Monitor telemetry. (5) Possible urinary tract infection: Await culture result. History of Present Illness Reason for Consultation: Paroxysmal atrial fibrillation Requesting Physician: Dr. Mio Parikh Attending Physician: Williams Rousseau MD History of Present Illness 83-year-old female presented emergency department with recurrent palpitations. Followed by the undersigned at the outpatient clinic for history of paroxysmal atrial fibrillation and supraventricular tachycardia. Most recent 14 days ZIO monitor performed July 2017 demonstrating 87 salvos of paroxysmal suprave ntricular tachycardia as well as 2 episodes of asymptomatic sinus bradycardia. No evidence of recurrent atrial fibrillation. Patient developed palpitations on Thursday evening. Reported brief episodes of rapid heart rate. Symptoms became more significant and prolonged on Thursday. Denies any associated chest discomfort, lightheadedness, dizziness, syncope, or near syncope. No recent febrile illness. Denies frequency, urgency, dysuria, cough, or sputum production. Functional capacity stable. [facility] [place] [facility] [facility] [place] [facility] Active around her home. No signs/symptoms of GI/ blood loss. Mild hypokalemia noted on admission. Reports elevated blood pressures per home cuff prior to admission. Paroxysmal atrial fibrillation reported on presentation treated with IV Cardizem. There is no ECG demonstrating dysrhythmia, however, telemetry strips reveal supraventricular tachycardia versus atrial flutter. Currently sinus rhythm on telemetry. She offers no other concerns/complaints at this time. Most recent testing results listed below. Allergies Allergy/AdvReac Type Severity Reaction Status Date / Time simvastatin Allergy Unknown Muscle Verified 07/26/18 01:46 aches. rofecoxib Allergy Face fiery Verified 07/26/18 01:46 red, no hives or swelling. Sulfa (Sulfonamide Allergy Unknown Verified 07/26/18 01:46 Antibiotics) tetracycline Allergy HIVES Verified 07/26/18 01:46 Home Medications Home Medications Medication Instructions Recorded Confirmed Type atorvastatin 10 mg PO DAILY 07/26/18 07/26/18 History hydrochlorothiazide 12.5 mg PO DAILY 07/26/18 07/26/18 History lisinopril 5 mg PO DAILY 07/26/18 07/26/18 History metoprolol tartrate 25 mg PO BID 07/26/18 07/26/18 History omeprazole 20 mg PO QAM 07/26/18 07/26/18 History temazepam 7.5 mg PO HS 07/26/18 07/26/18 History warfarin 5 mg PO DAILY 07/26/18 07/26/18 History Patient History Medical History A-fib High blood pressure Social History Preferred Language: Czech Communication Ability: Effective Switch Technician Required: No Beliefs That Will Affect Care: None Current Living Situation: Spouse and Family Other Information That Helps Us Care for You: No Feels Safe at Home: Yes Safety Concerns: Feels Safe At This Time Smoking Status: Never smoker Do You Dip or Chew Tobacco: No Second Hand Exposure: No Hx Alcohol Use: Yes Hx Substance Use: No Review of Systems Review of Systems: All systems reviewed & are unremarkable except as noted in HPI & below Physical Exam Physical Exam: General: NAD, AAO x3, well nourished. HEENT: Normocephalic. Atraumatic. Conjunctiva pink, no scleral icterus. Neck: No carotid bruits, the carotid upstrokes are brisk. No JVD. No HJR Heart: Regular normal S-1 and S-2 no S-3 or S-4 gallop. No murmurs or rub appreciated. PMI is not displaced. No RV heave. Lungs: Clear bilateral without rales , rhonchi, or wheeze. Abdomen: Normal bowel sounds. Soft. Nontender. No masses or organomegaly. No abdominal bruits. Extremities: No clubbing, cyanosis, or edema. Pulses: radial=2/4, Dorsalis pedis =2/4, posterior tibial=2/4. Neuro: Cranial nerves grossly intact. No focal motor deficit. Results & Data Vital Signs (Past 12 Hours) Vital Signs Temp Pulse Pulse Resp BP BP Pulse Ox 07/26/18 07:13 36.8 C 50 L 19 124/71 95 07/26/18 02:42 36.9 C 60 18 148/71 H 92 07/26/18 02:27 62 18 172/82 H 95 07/26/18 01:57 75 16 182/78 H 100 07/26/18 00:45 72 16 154/85 H 95 07/26/18 00:36 141 H 18 168/102 H 95 07/26/18 00:15 71 18 144/89 H 98 07/25/18 23:35 76 14 159/81 H 95 07/25/18 22:57 75 16 155/91 H 96 07/25/18 22:31 36.8 C 74 18 166/85 H 96 Diagnostic Findings 14 Day Zio 07/2017: The predominant underlying rhythm is sinus. Evidence of asymptomatic tachy-pari syndrome with 87 salvos of paroxysmal supraventricular tachycardia as well as 2 episodes of asymptomatic sinus bradycardia with a heart rate of 40 beats per minute. Symptoms correlated with sinus rhythm and sensed supraventricular ectopy. 2D echocardiogram report 08/06/2017: The left ventricular cavity size is normal. The LV wall thickness is mildly increased (concentric). The left ventricular wall motion is normal. The qualitative LV ejection fraction is 55-59% (normal). The left atrium is normal sized. The mitral valve leaflets thickness is mildly increased. Mild mitral regurgitation is present. Moderate tricuspid regurgitation is present. The estimated pulmonary artery systolic pressure is 35-40mmHg. (1) Atrial flutter Atrial flutter type: typical Qualified Code(s): I48.3 - Typical atrial flutter (2) HTN (hypertension) Hypertension type: essential hypertension Qualified Code(s): I10 - Essential (primary) hypertension
[2018-07-26] MEDS: SOTALOL HCL 80 MG TAB PO SCH ×2 (09:28→21:14)
--- NOTE | 2018-07-26 11:22 | Hospitalist Progress Note ---
Date of Service July 26, 2018 Assessment & Plan (1) Atrial flutter: Present on admission with palpitation with Atrial flutter with HR in 140's Possible related to hypokalemia vs UTI Received Cardizem 10mg x1 in the Converted to NSR in the ER Cardiology on board Metoprolol changed to sotalol 80mg BID Cardio recommended to keep Mg above 2 and K above 4 Continue coumadin with INR goal btw 2 to 3 Will check EKG daily Continue monitor in telemetry Paroxysmal atrial fibrillation Rate controlled Metoprolol changed to sotalol Continue coumadin Monitor INR Tachycardia-bradycardia syndrome Asymptomatic HR in telemonitor currently btw 45's to 55's Might need pacemaker implantation in future Cardiology on board Abnormal UA UA positive for Leukocytes and 1+bacteria Denies any urinary symptoms, afebrile and no WBC Follow up urine cx Will hold on abx for now HTN BP elevated on admission BP improves today Will resume HCTZ in am Continue monitor BP Hypokalemia K on admission 3.2 K replaced on admission K today 4.1 Monitor BMP DVT px on coumadin with INR 1.9 CODE STATUS FULL CODE Disposition Continue monitor in tele Subjective Pt was seen and examined Lying in bed with no distress Pt said that she feels fine today She said that she does not have the palpitation anymore She said that she is not having any urinary symptoms Denies any chest pain, palpitation, dizziness and SOB Physical Exam Physical Exam: General- No acute distress Head- atraumatic Eyes- PERRL, EOMI, ENT- oropharynx clear Neck- supple, no JVD Lungs- clear to auscultation Heart- +bradycardia, no murmur Abdomen- normal bowel sounds, soft, nontender Extremities- no calf tenderness Neuro- alert, oriented x 3; PERRL, EOMI; no facial palsy; no dysarthria Skin- warm & dry Results & Data Vital Signs (Past 12 Hours) Vital Signs Temp Pulse Pulse Resp BP BP Pulse Ox 07/26/18 10:48 36.3 C L 49 L 19 143/61 H 94 07/26/18 08:00 48 L 07/26/18 07:13 36.8 C 50 L 19 124/71 95 07/26/18 02:42 36.9 C 60 18 148/71 H 92 07/26/18 02:27 62 18 172/82 H 95 07/26/18 01:57 75 16 182/78 H 100 07/26/18 00:45 72 16 154/85 H 95 07/26/18 00:36 141 H 18 168/102 H 95 07/26/18 00:15 71 18 144/89 H 98 07/25/18 23:35 76 14 159/81 H 95 (1) Atrial flutter Atrial flutter type: typical Qualified Code(s): I48.3 - Typical atrial flutter
[2018-07-26] MEDS ORDERED: SOD PHOSPHATE/SOD BIPHOSPHATE ENEMA 132 ML BTL PR PRN (19:49)
[2018-07-27 06:15] LABS: INR 1.9 (0.9-1.1); Prothrombin Time 18.8 Seconds (9.0-12.0)
[2018-07-27 06:20] LABS: BUN Creatinine Ratio 19.5 (10-20); Calcium 8.9 mg/dl (8.5-10.1); Creatinine Clr Calc Pharmacy 47.1 ml/min; Est GFR (African American) 62.5; Est GFR (Non-African American) 53.9; Magnesium 2.3 mg/dl (1.8-2.4); Potassium 4.3 mmol/L (3.5-5.1)
[2018-07-27] MEDS: SOTALOL HCL 80 MG TAB PO SCH ×2 (08:55→20:27)
--- NOTE | 2018-07-27 10:18 | Cardiology Progress Note ---
Date of Service July 27, 2018 Assessment & Plan (1) Atrial flutter: No recurrent atrial dysrhythmias overnight. Asymptomatic sinus bradycardia noted. Continue sotalol loading, 80 mg twice daily. Repeat ECG in a.m. Tentative plan for discharge tomorrow. Continue Coumadin for goal INR of 2.0-3.0. (2) HTN (hypertension): Controlled. Continue to monitor. Continue outpatient medications. (3) Paroxysmal atrial fibrillation: Continue sotalol loading, warfarin, daily ECG. (4) H/O tachycardia-bradycardia syndrome: Potential need for pacemaker implantation discussed with patient. All questions answered satisfaction. Monitor telemetry. (5) Possible urinary tract infection: Culture negative. Subjective Patient seen and examined the bedside. Tolerating sotalol. Sinus bradycardia at rest. Ambulating the garcia without symptoms. Denies lightheadedness, dizziness, syncope, or near syncope. No recurrent atrial dysrhythmias on telemetry. Offers no complaints at this time. Review of Systems Review of Systems: All systems reviewed & are unremarkable except as noted in HPI & below Physical Exam Physical Exam: General: NAD, AAO x3, well nourished. HEENT: Normocephalic. Atraumatic. Conjunctiva pink, no scleral icterus. Neck: No carotid bruits, the carotid upstrokes are brisk. No JVD. No HJR Heart: Regular normal S-1 and S-2 no S-3 or S-4 gallop. No murmurs or rub appreciated. PMI is not displaced. No RV heave. Lungs: Clear bilateral without rales , rhonchi, or wheeze. Abdomen: Normal bowel sounds. Soft. Nontender. No masses or organomegaly. No abdominal bruits. Extremities: No clubbing, cyanosis, or edema. Pulses: radial=2/4, Dorsalis pedis =2/4, posterior tibial=2/4. Neuro: Cranial nerves grossly intact. No focal motor deficit. Results & Data Vital Signs (Past 12 Hours) Vital Signs Temp Pulse Resp BP Pulse Ox 07/27/18 09:57 97 07/27/18 03:52 36.5 C 47 L 18 133/70 93 07/26/18 23:33 36.8 C 49 L 17 130/72 94 (1) Atrial flutter Atrial flutter type: typical Qualified Code(s): I48.3 - Typical atrial flutter (2) HTN (hypertension) Hypertension type: essential hypertension Qualified Code(s): I10 - Essential (primary) hypertension
--- NOTE | 2018-07-27 15:00 | Hospitalist Progress Note ---
Date of Service July 27, 2018 Assessment & Plan (1) Atrial flutter: Present on admission with palpitation with Atrial flutter with HR in 140's Possible related to hypokalemia vs UTI Received Cardizem 10mg x1 in the Converted to NSR in the ER Cardiology on board Metoprolol changed to sotalol 80mg BID Cardio recommended to keep Mg above 2 and K above 4 Continue coumadin with INR goal btw 2 to 3 Patient converted to sinus with rate controlled Possible discharge home tomorrow if no further evidence of cardiac arrhythmia Paroxysmal atrial fibrillation Rate controlled Continue on sotalol On chronic anticoagulation with Coumadin Tachycardia-bradycardia syndrome Asymptomatic Might need pacemaker implantation in future Cardiology on board Abnormal UA UA positive for Leukocytes and 1+bacteria Denies any urinary symptoms, afebrile and no WBC Urine culture no bacterial growth HTN Blood pressure stable Hypokalemia Replaced, potassium within normal limit DVT on chemo CODE STATUS FULL CODE Disposition Plan for discharge home possibly tomorrow 07/28/2018 Subjective No complaint of shortness of breath, dizziness pain, palpitation Noted to ambulate independently without any dyspnea on exertion or anginal symptom Remains sinus with rate controlled Plan to discharge home possible tomorrow Physical Exam Constitutional: WD/WN, vitals as above Eyes: PERRL, conjunctivae normal, anicteric sclerae ENMT: external ear and nose normal, oropharynx normal Neck: trachea midline, no thyromegaly Respiratory: normal respiratory effort, lungs clear to auscultation Cardiovascular: RRR, no murmur, no edema Gastrointestinal (Abdomen): normal bowel sounds, soft, nontender, no hepatosplenomegaly Musculoskeletal: no cyanosis or clubbing, extremities motor strength 5/5 Skin: no rashes, warm and dry Neurologic: PERRL, EOMI, accommodation nl, no face palsy, no dysarthria Psychiatric: A+Ox3, euthymic affect Results & Data Vital Signs (Past 12 Hours) Vital Signs Temp Pulse Pulse Resp BP Pulse Ox 07/27/18 10:52 37 C 45 L 18 111/62 07/27/18 09:57 97 07/27/18 08:00 36.2 C L 43 L 50 L 20 145/71 H 96 07/27/18 03:52 36.5 C 47 L 18 133/70 93 (1) Atrial flutter Atrial flutter type: typical Qualified Code(s): I48.3 - Typical atrial flutter
[2018-07-27] MEDS ORDERED: WARFARIN SOD 5 MG TAB PO SCH (16:00)
[2018-07-28 05:50] LABS: INR 1.6 (0.9-1.1); Prothrombin Time 15.7 Seconds (9.0-12.0)
--- NOTE | 2018-07-28 08:37 | Cardiology Progress Note ---
Date of Service July 28, 2018 Assessment & Plan (1) Atrial flutter: No recurrent atrial dysrhythmias overnight. Asymptomatic sinus bradycardia noted. Continue sotalol loading, 80 mg twice daily. Repeat ECG after 9 AM dose today. Discharge to home today if QTc remains in normal range. Continue Coumadin for goal INR of 2.0-3.0. Outpatient cardiology follow-up in 2 weeks. (2) HTN (hypertension): Controlled. Continue to monitor. Continue outpatient medications. (3) Paroxysmal atrial fibrillation: Continue sotalol loading, warfarin, daily ECG. (4) H/O tachycardia-bradycardia syndrome: Potential need for pacemaker implantation discussed with patient. All questions answered satisfaction. Monitor telemetry. (5) Possible urinary tract infection: Culture negative. Subjective Patient seen and examined at the bedside. Remains in sinus rhythm on telemetry. Sinus bradycardia with heart rates as low as 40 bpm recorded during presumed hours of sleep. Heart rate ranging from 50 to 65 bpm while awake. No lightheadedness, dizziness, syncope, or near syncope. No evidence of recurrent atrial fibrillation, flutter, or PSVT. Patient voices concern regarding elevated blood pressure last evening. Offers no other concerns/complaints at this time. Review of Systems Review of Systems: All systems reviewed & are unremarkable except as noted in HPI & below Physical Exam Physical Exam: General: NAD, AAO x3, well nourished. HEENT: Normocephalic. Atraumatic. Conjunctiva pink, no scleral icterus. Neck: No carotid bruits, the carotid upstrokes are brisk. No JVD. No HJR Heart: Regular normal S-1 and S-2 no S-3 or S-4 gallop. No murmurs or rub appreciated. PMI is not displaced. No RV heave. Lungs: Clear bilateral without rales , rhonchi, or wheeze. Abdomen: Normal bowel sounds. Soft. Nontender. No masses or organomegaly. No abdominal bruits. Extremities: No clubbing, cyanosis, or edema. Pulses: radial=2/4, Dorsalis pedis =2/4, posterior tibial=2/4. Neuro: Cranial nerves grossly intact. No focal motor deficit. Results & Data Vital Signs (Past 12 Hours) Vital Signs Temp Pulse Pulse Resp BP Pulse Ox 07/28/18 07:02 36.8 C 51 L 18 133/70 97 06/12/19 03:10 36.9 C 55 L 16 155/70 H 95 07/27/18 22:46 36.5 C 50 L 16 158/70 H 96 (1) Atrial flutter Atrial flutter type: typical Qualified Code(s): I48.3 - Typical atrial flutter (2) HTN (hypertension) Hypertension type: essential hypertension Qualified Code(s): I10 - Essential (primary) hypertension
[2018-07-28] MEDS: SOTALOL HCL 80 MG TAB PO SCH (09:02)
--- NOTE | 2018-07-28 13:41 | Hospitalist Progress Note ---
Date of Service July 28, 2018 Assessment & Plan (1) Atrial flutter: Samara in sinus with rate controlled, completed sotalol load, Twelve-lead EKG after 9 AM sotalol dose shows QTC 432 Stable to be discharged home today Cardiology follow-up in clinic in 4 to 6 weeks Patient admitted with complaint of with palpitation with Atrial flutter with HR in 140's Possible related to hypokalemia vs UTI Received Cardizem 10mg x1 in the Converted to NSR in the ER Cardiology on board Metoprolol changed to sotalol 80mg BID Cardio recommended to keep Mg above 2 and K above 4 Continue coumadin with INR goal btw 2 to 3 Patient converted to sinus with rate controlled Paroxysmal atrial fibrillation Rate controlled Continue on sotalol On chronic anticoagulation with Coumadin Tachycardia-bradycardia syndrome Asymptomatic Might need pacemaker implantation in future Cardiology on board Patient follow-up with cardiology scheduled already Abnormal UA UA positive for Leukocytes and 1+bacteria Denies any urinary symptoms, afebrile and no WBC Urine culture no bacterial growth HTN Blood pressure stable Hypokalemia Replaced, potassium within normal limit DVT on Coumadin CODE STATUS FULL CODE Disposition Stable to be discharged home today Subjective Patient denies any palpitation, no dizzy spell or lightheadedness, no hypoxia, ambulating independently Remains in sinus rhythm with rate controlled Evaluated by cardiology earlier, Stable to be discharged home today Physical Exam Constitutional: WD/WN, vitals as above Eyes: PERRL, conjunctivae normal, anicteric sclerae ENMT: external ear and nose normal, oropharynx normal Neck: trachea midline, no thyromegaly Respiratory: normal respiratory effort, lungs clear to auscultation Cardiovascular: RRR, no murmur, no edema Gastrointestinal (Abdomen): normal bowel sounds, soft, nontender, no hepatosplenomegaly Musculoskeletal: no cyanosis or clubbing, extremities motor strength 5/5 Skin: no rashes, warm and dry Neurologic: PERRL, EOMI, accommodation nl, no face palsy, no dysarthria Psychiatric: A+Ox3, euthymic affect Results & Data Vital Signs (Past 12 Hours) Vital Signs Temp Pulse Pulse Pulse Resp BP BP 07/28/18 13:26 36.6 C 50 L 45 L 20 128/76 133/70 07/28/18 11:51 36.6 C 45 L 20 128/76 07/28/18 07:02 36.8 C 51 L 18 133/70 07/28/18 06:20 41 L 07/28/18 03:10 36.9 C 55 L 16 155/70 H Pulse Ox 07/28/18 13:26 96 07/28/18 11:51 96 07/28/18 07:02 97 07/28/18 06:20 07/28/18 03:10 95 (1) Atrial flutter Atrial flutter type: typical Qualified Code(s): I48.3 - Typical atrial flutter
--- NOTE | 2018-07-28 14:47 | Discharge Summary ---
Date of Service July 28, 2018 Admission HPI Per Admitting Provider History obtained from patient, family, and records. Medical history significant for PAF (asymptomatic tachybradycardia syndrome not yet requiring PPM as per outpatient Cardiology records) on Coumadin, hypertension, hyperlipidemia, mitral regurgitation as per records, skin cancer as per records. Recent confinement January 2013 for pyelonephritis. Patient noted bothersome palpitations over the weekend without chest pain and shortness of breath. Patient also noted achy headache symptoms. Compliant with home meds. Denies unusual stress. Denies fluid retention. SBP somewhat higher than usual at home 190s. Patient admits to dietary indiscretion, pepperoni pizza consumption etc. At the ER, patient noted to be in rapid A. flutter , cardiac rate 140s. IV Cardizem bolus given at the ER. Patient converted to NSR at the ER. Patient currently uncomfortable going home. Medical History as above TTE July 2017 The left ventricular cavity size is normal. The LV wall thickness is mildly increased (concentric). The left ventricular wall motion is normal. The qualitative LV ejection fraction is 5559% (normal). The left atrium is normal sized. The mitral valve leaflets thickness is mildly increased. Mild mitral regurgitation is present. Moderate tricuspid regurgitation is present. The estimated pulmonary artery systolic pressure is 3540mm Hg. Surgical History : Cystoscopy, BTL Family History : Prostate cancer, A. fib Personal/Social history : Non-smoker, occasional EtOH intake, retired [employer] employee Principal Diagnosis Atrial flutter/paroxysmal A. fib Discharge Exam Constitutional WD/WN, vitals as above Eyes PERRL, conjunctivae normal, anicteric sclerae ENMT external ear and nose normal, oropharynx normal Neck trachea midline, no thyromegaly Respiratory normal respiratory effort, lungs clear to auscultation Cardiovascular RRR, no murmur, no edema Gastrointestinal (Abdomen) normal bowel sounds, soft, nontender, no hepatosplenomegaly Musculoskeletal no cyanosis or clubbing, extremities motor strength 5/5 Skin no rashes, warm and dry Neurologic PERRL, EOMI, accommodation nl, no face palsy, no dysarthria Psychiatric A+Ox3, euthymic affect Discharge Data Allergies Allergy/AdvReac Type Severity Reaction Status Date / Time simvastatin Allergy Unknown Muscle Verified 07/26/18 01:46 aches. rofecoxib Allergy Face fiery Verified 07/26/18 01:46 red, no hives or swelling. Sulfa (Sulfonamide Allergy Unknown Verified 07/26/18 01:46 Antibiotics) tetracycline Allergy HIVES Verified 07/26/18 01:46 Consultations 07/26/18 00:45 ED Decision to Admit Stat 07/26/18 02:40 Consult Cardiology Routine Ordered Studies 07/25/18 22:37 CT head/brain wo con Urgent Hospital Course (1) Atrial flutter: Remains in sinus with rate controlled, completed sotalol load, Twelve-lead EKG after 9 AM sotalol dose shows QTC 432 Stable to be discharged home today Cardiology follow-up in clinic in 4 to 6 weeks Patient admitted with complaint of with palpitation with Atrial flutter with HR in 140's Possible related to hypokalemia vs UTI Received Cardizem 10mg x1 in the Converted to NSR in the ER Cardiology on board Metoprolol changed to sotalol 80mg BID Cardio recommended to keep Mg above 2 and K above 4 Continue coumadin with INR goal btw 2 to 3 Patient converted to sinus with rate controlled Paroxysmal atrial fibrillation Rate controlled Continue on sotalol On chronic anticoagulation with Coumadin Tachycardia-bradycardia syndrome Asymptomatic Might need pacemaker implantation in future Cardiology on board Patient follow-up with cardiology scheduled already Abnormal UA UA positive for Leukocytes and 1+bacteria Denies any urinary symptoms, afebrile and no WBC Urine culture no bacterial growth HTN Blood pressure stable Hypokalemia Replaced, potassium within normal limit DVT on Coumadin CODE STATUS FULL CODE Disposition Stable to be discharged home today Total Time Total Time Spent Total Time Spent (In Minutes): Approximately 45 minutes Total Time Includes: Examination of the Patient, Discharge Planning and Medication Reconciliation Discharge Plan Discharge Items Patient Disposition: Home - Self-Care Reason For Visit: PAF Discharge Diagnosis: ATRIAL FLUTTER Condition: Fair Discharge Goals: Decrease discomfort, Diagnostic testing and Therapeutic intervention Activity: Resume your previous activity Non-emergency contact: Primary Care Provider Call non-emergency contact if: you have any medication questions Follow-up/Referrals: Johanna Rincon DO [Primary Care Provider] - 08/04/18 11:10 am Shayan Rincon DO [Family Provider] - Diet: Heart Healthy Addtl Provider Instructions: NEW MEDICATION CHANGE : SOTATOL 80 MG TWICE DAILY -PRESCRIPTION SENT TO PHARMACY STOP TAKING : METOPROLOL 25 MG TAB TWICE DAILY FOLLOW UP WITH COUMADIN CLINIC AT [facility] Date & Time 08/02/2018 11:00 AM HOSPITAL FOLLOW UP WITH DR JOHANNA RINCON ON 08/04/18Thursday 11:10 AM CARDIOLOGY FOLLOW UP PETTY LANDERS PA-C ON 08/24/2018 3:00 PM Cardiology, [facility] Prescriptions: New sotalol 80 mg Tablet 80 mg PO BID 30 Days Qty: 60 RF: 3 Continued atorvastatin 10 mg tablet 10 mg PO DAILY RF: 0 temazepam 7.5 mg capsule 7.5 mg PO HS RF: 0 warfarin 5 mg tablet 5 mg PO DAILY RF: 0 omeprazole 20 mg capsule,delayed release(DR/EC) 20 mg PO QAM RF: 0 lisinopril 5 mg tablet 5 mg PO DAILY RF: 0 hydrochlorothiazide 25 mg tablet 12.5 mg PO DAILY RF: 0 Discontinued metoprolol tartrate 25 mg tablet 25 mg PO BID RF: 0 Stand-Alone Forms: [facility] Discharge Orders: Discharge Order (Routine); Ordered 07/28/18 Ordered By: Lisa Khan Admission Data Admit Date/Time: 07/26/18 11:55 Attending Provider: Lisa Khan Admit Provider: Phill Candelaria Primary Care Provider: Johanna Rincon Other Providers: Shayan Rincon ; Phill Candelaria ; Williams Rousseau Service: Telemetry Other Interventions: Discharge Summary Assessment (RN) Last Done: 07/28/18 13:26 DC Date/Time DO NOT enter until pt leaves facility: 07/28/18 13:54
== END 2018-07-28 13:54 | disposition home or self-care (01) | DRG 690 ==
LOC: 2S 22:24 → ED 22:24 → SUATTDRO 07-26 01:40 → 2S 07-26 02:27 → SUATTDRO 07-26 11:55
DX: Z79.01 Long term (current) use of anticoagulants; N39.0 Urinary tract infection, site not specified; Z85.828 Personal history of other malignant neoplasm of skin; I48.92 Unspecified atrial flutter; E78.5 Hyperlipidemia, unspecified; I49.5 Sick sinus syndrome; I10 Essential (primary) hypertension; I34.0 Nonrheumatic mitral (valve) insufficiency; R73.9 Hyperglycemia, unspecified; E87.6 Hypokalemia

== ENCOUNTER 2020-01-01 14:31 | Inpatient (IN) ==
[2020-01-01] MEDS ORDERED: LIDOCAINE/EPINEPH/TETRACAINE 1 EA SYR EXT STA (14:42)
--- NOTE | 2020-01-01 14:47 | Emergency Department Note ---
Impression & Plan Fall, Head injury, Forehead laceration, Contusion of face, Contusion of right upper extremity, Traumatic hematoma of right upper arm ED Provider Note NAME: SUNDAY BEAULIEU AGE: 84 SEX: F : 1935 ARRIVES VIA: Ambulance INFORMANT: Patient, prehospital personnel ED PROVIDER(S): Ken Barrera DO CHIEF COMPLAINT: Fall HPI: The patient is an 84-year-old female who presented to the emergency department by ambulance after a fall. The patient was stepping off of a curve when she tripped and hit her face. She states that she tried to brace herself with her right upper extremity. She states that she has injury to her right h and right wrist and right elbow. She also struck her forehead. She complains of headache. She has no loss of consciousness. She denies having any chest pain or difficulty breathing. She does take Coumadin. She did have the laceration dressed in the field. No active bleeding was noted. The patient states that she was able to stand on her own after she was helped up with assistance. She states her pain is moderate at this time. She does not want any medication for pain at this time. ROS: See above HPI for pertinent positives & negatives. A total of 10 systems reviewed and were otherwise negative. PAST MEDICAL HISTORY: See Below PAST SURGICAL HISTORY: See Below FAMILY HISTORY: See Below SOCIAL HISTORY: See Below HOME MEDICATIONS: See Below ALLERGIES: See Below VITALS: See Below PHYSICAL EXAMINATION: GENERAL: The patient is awake and alert. She is somewhat anxious appearing and appears to be uncomfortable. EYES: The conjunctivae are clear. The pupils are round and reactive. EARS, NOSE, MOUTH AND THROAT: The nose is without any evidence of any deformity. No epistaxis was noted. There was an abrasion on the bridge of the nose. No deformity was noted. There was swelling and small laceration over the right eyebrow. No active bleeding was noted. NECK: The neck is nontender and supple. RESPIRATORY: Normal respiratory effort is noted there is no evidence of wheezing rhonchi or rales CARDIOVASCULAR: Irregular rhythm was noted to auscultation. No definite murmur was noted. GASTROINTESTINAL: The abdomen is soft. Abdomen is nontender. BACK: No midline tenderness or or step-off noted range of motion in flexion extension as well as rotation no signs of muscle spasm noted MUSCULOSKELETAL/EXTREMITIES: There is no evidence of gross deformity full range of motion is noted in the hips and shoulders. There was tenderness with range of motion of the right elbow right wrist and right hand. There was no deformity. There was an abrasion on the right palm. No active bleeding was noted. SKIN: There is no obvious evidence of any rash. There are no petechiae, pallor or cyanosis noted. NEUROLOGIC: Patient is awake alert and oriented x3 strength is symmetric patellar reflexes are 2+ bilaterally 1615: I reevaluated the patient when I did the laceration repair. The patient was complaining of mostly upper right arm pain. On evaluation the skin is very taut and she appears to have developed a large hematoma. Pulses are symmetric in both wrist. MEDICAL DECISION MAKING: The patient is an 84-year-old female who fell from a standing position. She struck her face as well as her right upper extremity. She does take oral anticoagulation. The patient had radiographic studies to ensure there is no intracranial bleeding. Laceration was repaired in usual fashion. The patient started to develop significant swelling and pain over her right upper extremity. She developed a large hematoma in the right arm. Pulses were still symmetric in the upper extremities. Because of these findings further radiographic and laboratory studies were obtained. There was no fracture of the upper extremity. Her Coumadin level was therapeutic. I discussed the patient's laboratory and radiographic studies with her. She was treated with pain medication in the emergency department. Because of the deep degree of swelling and the possibility of worsening swelling I did discuss her case [facility] They have agreed to evaluate the patient in the emergency department for further management and disposition. Triage Nursing notes reviewed. Prior medical records reviewed Vital Signs: reviewed and remarkable for elevated blood pressure. Differential diagnosis: Fracture, dislocation, contusion, intra-abdominal, pneumothorax, intrathoracic, intracranial, neurologic, compartment syndrome, rhabdomyolysis, as well as other pathologies. ER treatment provided: See below Diagnostics interpreted by me: ECG: none Cardiac Monitoring: An order was placed for continuous cardiac monitoring. The monitor shows a rate of 88 beats per minute with atrial fibrillation rhythm. Laboratory studies: As stated above and show below. Imaging studies: See below Consultation(s): I [facility] this [facility] COURSE: Procedures: Location: Right side of the forehead Total length: 2.5 cm Complexity: Low Verbal consent was obtained after the risks and benefits were explained, inc luding but not limited to bleeding, scarring, infection, pain, and bone/joint/nerve damage. At this time, the risks of the procedure are less than the risks of NOT performing the procedure. A time out was taken and the correct patient and site identified. The skin was prepped with betadine. The target area was anesthetized with 5 ml of let gel. Copious irrigation was performed using . The skin was re-prepped with normal saline. The wound was explored for foreign bodies and none found. Examination revealed no injury to deep structures such as tendons, bone, or significant blood vessels. Debridement was not performed. The wound edges were approximated using skin glue. Hemostasis and excellent approximation was achieved. Detailed wound care instructions and signs and symptoms of infection reviewed with the patient. No complications and the patient tolerated the procedure well. PDMP:reviewed and no issues Critical Care: None Past Med/Surg History Medical History (Updated 01/01/20 @ 21:26 by Ken Barrera DO) A-fib High blood pressure Social History Smoking Status: Never smoker Second Hand Exposure: No; Hx Alcohol Use: No Hx Substance Use: No Preferred Language: Slovenian Communication Ability: Effective Form Coverer Required: No Beliefs That Will Affect Care: None Current Living Situation: Family Current Living Situation Comment: son and daughter in law Feels Safe at Home: Yes Safety Concerns: Feels Safe At This Time Assistive Devices: Denture - Upper Assistive Devices Comment: partial plate Allergies Allergies Allergy/AdvReac Type Severity Reaction Status Date / Time simvastatin Allergy Unknown Muscle Verified 01/01/20 16:05 aches. rofecoxib Allergy Face fiery Verified 01/01/20 16:05 red, no hives or swelling. Sulfa (Sulfonamide Allergy Unknown Verified 01/01/20 16:05 Antibiotics) tetracycline Allergy HIVES Verified 01/01/20 16:05 Home Meds Home Medications Medication Instructions Recorded Confirmed atorvastatin 10 mg PO DAILY 07/26/18 01/01/20 hydrochlorothiazide 12.5 mg PO DAILY 07/26/18 01/01/20 lisinopril 5 mg PO DAILY 07/26/18 01/01/20 omeprazole 20 mg PO QAM 07/26/18 01/01/20 warfarin 5 mg PO DAILY 07/26/18 01/01/20 sotalol [Sotalol AF] See Rx Instructions .ROUTE .COMPLEX 01/01/20 01/01/20 Results & Data (ED) Vital Signs Vital Signs - 24 hr 01/01/20 14:35 01/01/20 14:36 01/01/20 14:38 Temperature 36.8 C Temperature Source Oral Pulse Rate 66 68 65 Pulse Rate from SpO2 Sensor 66 65 Respiratory Rate 14 16 23 Blood Pressure 192/89 H 192/89 H Blood Pressure Mean 139 123 Pulse Oximetry 96 95 95 Oxygen Delivery Method Room Air Sepsis Recent Fever Within 48 Hours No Sepsis New/Unexplained Change in Mental Status N/A Sepsis Action Taken by Nursing No Action Required 01/01/20 15:00 01/01/20 15:01 01/01/20 17:49 Temperature Temperature Source Pulse Rate 63 68 Pulse Rate from SpO2 Sensor 59 L Respiratory Rate 23 18 Blood Pressure 223/88 H 191/89 H Blood Pressure Mean 103 119 Pulse Oximetry 97 Oxygen Delivery Method Sepsis Recent Fever Within 48 Hours Sepsis New/Unexplained Change in Mental Status Sepsis Action Taken by Custodial Medications Current Medication List: was personally reviewed by me Laboratory Data Attestation: I reviewed the patient's lab results. Result diagrams: 01/01/20 16:22 01/01/20 16:22 Lab Results 01/01/20 01/01/20 01/01/20 Range/Units 16:22 16:22 16:22 WBC 9.86 (4.8-10.8) K/uL RBC 4.60 (4.2-5.4) M/uL Hgb 13.5 (12.0-16.0) g/dL Hct 41.8 (37-47) % MCV 90.9 (80-100) fL MCH 29.3 (25-34) pg MCHC 32.3 (32-36) g/dL RDW Std Deviation 46.9 H (36.4-46.3) fL RDW Coeff of Brenna 14.2 (11.5-14.5) % Plt Count 196 (130-400) K/uL MPV 9.8 (7.4-10.4) fL Immature Gran % (Auto) 0.1 % Neut % (Auto) 70.8 % Lymph % (Auto) 18.4 % [place] % (Auto) 9.1 % Eos % (Auto) 1.4 % Baso % (Auto) 0.2 % Neut # (Auto) 6.98 H (1.4-6.5) K/uL Lymph # (Auto) 1.81 (1.2-3.4) K/uL Columbia # (Auto) 0.90 H (0.11-0.59) K/uL Eos # (Auto) 0.14 (0-0.5) K/uL Baso # (Auto) 0.02 (0-0.2) K/uL Immature Gran # (Auto) 0.01 (0.00-0.02) K/uL PT 29.9 H (9.0-12.0) Seconds INR 3.0 H (0.9-1.1) APTT 41.1 H (21.0-31.0) Seconds PTT Ratio 1.5 Sodium 142 (136-145) mmol/L Potassium 3.8 (3.5-5.1) mmol/L Chloride 111 H (98-107) mmol/L Carbon Dioxide 30 (21-32) mmol/L Anion Gap 1.0 L (3-11) BUN 16 (7-18) mg/dl Creatinine 0.84 (0.6-1.2) mg/dl Est Cr Clr Drug Dosing 54.8 ml/min Est GFR ( Amer) 72.9 Est GFR (Non-Af Amer) 62.9 BUN/Creatinine Ratio 19.6 (10-20) Glucose 104 H (70-99) mg/dl Calcium 8.9 (8.5-10.1) mg/dl Total Bilirubin 0.9 (0.2-1) mg/dl AST 19 (15-37) U/L ALT 25 (12-78) U/L Alkaline Phosphatase 102 (45-117) U/L Total Protein 7.4 (6.4-8.2) gm/dl Albumin 3.4 (3.4-5.0) gm/dl Globulin 4.0 (2.5-4.0) gm/dl Albumin/Globulin Ratio 0.9 (0.9-2) Administered Medications Hydromorphone HCl (Hydromorphone Inj 1 Mg/Ml Syringe) 1 mg IV Q4 PRN PRN Reason: Pain Stop: 01/15/20 20:34 Last Admin: 01/01/20 20:50 Dose: 1 mg Documented by: [id number] Discontinued Medications Acetaminophen (Acetaminophen 325 Mg Tab) Confirm Administered Dose 650 mg .ROUTE .STK-MED ONE Stop: 01/01/20 16:10 Last Admin: 01/01/20 16:24 Dose: 650 mg Documented by: [id number] Fentanyl Citrate (Fentanyl Citrate 100 Mcg/2 Ml Vial) 50 mcg IV Q15M PRN PRN Reason: Pain Stop: 01/15/20 17:27 Last Admin: 01/01/20 17:51 Dose: 50 mcg Documented by: [id number] Hydralazine HCl (Hydralazine Hcl 20 Mg/Ml Vial) 10 mg IV NOW STA Stop: 01/01/20 18:42 Last Admin: 01/01/20 19:19 Dose: 10 mg Documented by: [id number] Lidocaine (Lidocaine/Epineph/Tetracaine 1 Ea Syr) 1 ea EXT NOW STA Stop: 01/01/20 14:43 Last Admin: 01/01/20 15:13 Dose: 1 ea Documented by: [id number] Ondansetron HCl (Ondansetron Inj 2 Mg/Ml 2 Ml Vial) 4 mg IV NOW STA Stop: 01/01/20 17:29 Last Admin: 01/01/20 17:51 Dose: 4 mg Documented by: [id number] Phytonadione (Phytonadione 5 Mg Tab) 2.5 mg PO NOW STA Stop: 01/01/20 18:44 Last Admin: 01/01/20 19:19 Dose: 2.5 mg Documented by: [id number] Imaging Data Radiologist's Impression: Patient: SUNDAY BEAULIEU Admit Date: 01/01/20 MR#: [id number] Address1: [address] [place] [address] Acct ID:[id number] Address2: Date: 1935 [facility] Zip: [place] [address] Age: 84 Location: ED Sex: F Room/Bed: Att Phy: Diagnosis: FALL Amada Phy: Pam Richardson DO Service Date: 01/01/20 Fam Phy: Interpreting Phy: Cristian Montanez Admit Phy: Ordering Phy: Ken Barrera DO cc: ~ CT facial bones wo con CLINICAL HISTORY: 84 years-old Female presenting with fall. Acute head, neck and facial trauma status post fall COMPARISON STUDY: CT head and cervical spine studies of same day TECHNIQUE: High-resolution CT scan of the facial bones is performed. Images are reviewed in the axial, sagittal, and coronal planes. IV contrast was not administered for this examination. A dose lowering technique was utilized adhering to the principles of ALARA. FINDINGS: Moderate sized hematoma of the right forehead. No opaque foreign body. Prior bilateral lens replacement. Orbits are unremarkable. No acute process of the imaged intracranial structures. Streak artifact from dental amalgam hardware. Trace right mastoid effusion. Left mastoid air cells are clear. The zygomatic arches, maxillary ospina, pterygoid plates, and orbits appear intact. No Acute displaced Facial Bone Fracture identified. Mild soft tissue swelling of nasal bridge with equivocal acute nondisplaced right-sided nasal bone fracture. IMPRESSION: 1. Moderate sized hematoma of the right forehead. 2. Equivocal acute nondisplaced right nasal bone fracture. ACT 112: Negative or not required by law. The above report was generated using voice recognition software. It may contain grammatical, syntax or spelling errors. Electronically signed by: Ramon Montanez M.D. 01/01/2020 3:55 PM Dictated: 01/01/201549 Transcribed: 01/01/201549 Patient: SUNDAY BEAULIEU Admit Date: 01/01/20 MR#: [id number] Address1: [address] [place] [address] Acct ID:[id number] Address2: Date: 1935 [facility] Zip: [place] [address] Age: 84 Location: ED Sex: F Room/Bed: Att Phy: Diagnosis: FALL Amada Phy: Pam Richardson DO Service Date: 01/01/20 Fam Phy: Interpreting Phy: Cristian Montanez Admit Phy: Ordering Phy: Ken Barrera DO cc: ~ 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 No acute fracture, dislocation or opaque foreign body. WRIST: Moderate radiocarpal with severe triscaphe and moderate first carpometacarpal osteoarthritis. No acute fracture, dislocation or opaque foreign body. Mild dorsal soft tissue prominence. IMPRESSION: No acute fracture or dislocation. ACT 112: Negative or not required by law. The above report was generated using voice recognition software. It may contain grammatical, syntax or spelling errors. Electronically signed by: Ramon Montanez M.D. 01/01/2020 3:22 PM Dictated: 01/01/20 1520 Transcribed: 01/01/201519 Patient: SUNDAY BEAULIEU Admit Date: 01/01/20 MR#: [id number] Address1: [address] [place] [address] Acct ID:[id number] Address2: Date: 1935 [facility] Zip: [place] [address] Age: 84 Location: ED Sex: F Room/Bed: Att Phy: Diagnosis: FALL Amada Phy: Pam Richardson DO Service Date: 01/01/20 Fam Phy: Interpreting Phy: Cristian Montanez Admit Phy: Ordering Phy: Ken Barrera DO cc: ~ 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 No acute fracture or dislocation. Pelvic basin phlebolith. Moderate fecal retention. IMPRESSION: No acute fracture or dislocation. ACT 112: Negative or not required by law. The above report was generated using voice recognition software. It may contain grammatical, syntax or spelling errors. Electronically signed by: Ramon Montanez M.D. 01/01/2020 3:16 PM Dictated: 01/01/201515 Transcribed: 01/01/201515 Patient: SUNDAY BEAULIEU Admit Date: 01/01/20 MR#: [id number] Address1: [address] [place] [address] Acct ID:[id number] Address2: Date: 1935 [facility] Zip: [place] [address] Age: 84 Location: ED Sex: F Room/Bed: Att Phy: Diagnosis: FALL Amada Phy: JackPam bailon Service Date: 01/01/20 Fam Phy: Interpreting Phy: Cristian Montanez Admit Phy: Ordering Floydy: Ken Barrera DO cc: ~ CT head/brain wo con CLINICAL HISTORY: 84 years-old Female with fall. Acute head and neck injury status post fall TECHNIQUE: Multiple axial CT images of the head were obtained without contrast. A dose lowering technique was utilized adhering to the principles of ALARA. COMPARISON: CT cervical spine and maxillofacial studies of same day, CT 07/25/2018 FINDINGS: No acute intracranial hemorrhage, midline shift, intracranial mass, hydrocephalus, territorial ischemia or abnormal extra-axial collection. Age- related involutional changes. Mild patchy white matter hypodensities suggest chronic microvascular ischemic disease. Senescent calcifications of the lentiform nuclei with cerebral vascular calcifications. No acute calvarial fracture. 6.0 x 1.1 cm right forehead scalp hematoma. Prior bilateral lens replacement. The paranasal sinuses, mastoid air cells, and middle ear cavities are clear. IMPRESSION: 1. No acute intracranial abnormality or calvarial fracture. 2. Moderate sized scalp hematoma of the right forehead. ACT 112: Negative or not required by law. The above report was generated using voice recognition software. It may contain grammatical, syntax or spelling errors. Electronically signed by: Ramon Montanez M.D. 01/01/2020 3:44 PM Dictated: 01/01/20 1542 Transcribed: 01/01/20 154 Patient: SUNDAY BEAULIEU Admit Date: 01/01/20 MR#: [id number] Address1: [address] [place] [address] Acct ID:[id number] Address2: Date: 1935 [facility] Zip: [place] [address] Age: 84 Location: ED Sex: F Room/Bed: Att Phy: Diagnosis: FALL Amada Phy: SharonPam bauer Service Date: 01/01/20 Fam Phy: Interpreting Phy: Cristian Montanez Admit Phy: Ordering Phy: Ken Barrera DO cc: ~ XR elbow RT min 3V routine HISTORY: 84 years-old Female fall acute right elbow pain status post fall COMPARISON: None TECHNIQUE: 3 views of the right elbow FINDINGS: Mild osteoarthritis of the elbow. Small enthesophyte of the olecranon process. Marginal spurring of the medial and lateral epicondyles. Mild dorsal soft tissue swelling. No acute fracture, dislocation, large joint effusion or opaque foreign body. IMPRESSION: Mild dorsal soft tissue swelling without acute fracture or dislocation. ACT 112: Negative or not required by law. The above report was generated using voice recognition software. It may contain grammatical, syntax or spelling errors. Electronically signed by: Ramon Montanez M.D. 01/01/2020 3:20 PM Dictated: 01/01/201517 Transcribed: 01/01/201517 Patient: SUNDAY BEAULIEU Admit Date: 01/01/20 MR#: [id number] Address1: [address] [place] [address] Acct ID:[id number] Address2: Date: 1935 [facility] Zip: [place] [address] Age: 84 Location: ED Sex: F Room/Bed: Att Phy: Diagnosis: FALL Amada Phy: Pam Richardson DO Service Date: 01/01/20 Fam Phy: Interpreting Phy: Cristian Montanez Admit Phy: Ordering Phy: Ken Barrera DO cc: ~ XR chest 1V portable HISTORY: 84 years-old Female fall acute chest trauma status post fall COMPARISON: 07/25/2018 TECHNIQUE: Portable AP view of the chest FINDINGS: Cardiac silhouette is mildly enlarged. Calcified plaque of the thoracic aortic arch. No pneumothorax, large pleural effusion or overt pulmonary edema. Trace left pleural effusion with subsegmental left lung base opacities. Degenerative changes of the shoulders and spine. IMPRESSION: Trace left pleural effusion with subsegmental left lung base opacities suggestive of atelectasis. ACT 112: Negative or not required by law. The above report was generated using voice recognition software. It may contain grammatical, syntax or spelling errors. Electronically signed by: Ramon Montanez M.D. 01/01/2020 3:18 PM Dictated: 01/01/201516 Transcribed: 01/01/201516 Patient: SUNDAY BEAULIEU Admit Date: 01/01/20 MR#: [id number] Address1: [address] [place] [address] Acct ID:[id number] Address2: Date: 1935 [facility] Zip: [place] [address] Age: 84 Location: ED Sex: F Room/Bed: Att Phy: Diagnosis: FALL Amada Phy: Pam Richardson DO Service Date: 01/01/20 Fam Phy: Interpreting Phy: Cristian Montanez Admit Phy: Ordering Phy: Ken Barrera DO cc: ~ CT cervical spine wo con CT DOSE: 1411.51 mGy.cm CLINICAL HISTORY: 84 years-old Female with fall. Acute head and neck injury status post fall COMPARISON: CT head and maxillofacial studies of same day TECHNIQUE: Multiple axial CT images of the cervical spine were obtained without contrast. A dose lowering technique was utilized adhering to the principles of ALARA. FINDINGS: Moderate multilevel discogenic degeneration with mild to moderate posterior multilevel disc space narrowing. Severe multilevel facet arthrosis. No acute fracture or subluxation. Evaluation of the central canal and neuroforamina is better assessed by MRI. Note is made of multilevel foraminal narrowing. Trace right mastoid effusion. Lung apices are clear without pneumothorax. No prevertebral edema. Calcified plaque of the carotid bulbs. Aberrant course of the right subclavian artery. IMPRESSION: No acute fracture or subluxation. ACT 112: Negative or not required by law. The above report was generated using voice recognition software. It may contain grammatical, syntax or spelling errors. Electronically signed by: Ramon Montanez M.D. 01/01/2020 3:50 PM Dictated: 01/01/20 1547 Transcribed: 01/01/20 1547 Patient: SUNDAY BEAULIEU Admit Date: 01/01/20 MR#: [id number] Address1: [address] [place] [address] Acct ID:[id number] Address2: Date: 1935 [facility] Zip: [place] [address] Age: 84 Location: ED Sex: F Room/Bed: Att Phy: Diagnosis: FALL Amada Phy: Pam Richardson DO Service Date: 01/01/20 [facility] Phy: Interpreting Phy: Cristian Montanez Admit Phy: Ordering Phy: Ken Barrera, DO cc: ~ XR humerus RT 2V HISTORY: 84 years-old Female fall acute right upper pain status post fall COMPARISON: Right elbow radiographs of same day TECHNIQUE: 2 views the right humerus FINDINGS: Moderate glenohumeral and AC joint osteoarthritis. No acute fracture, dislocation or opaque foreign body. Imaged lung maldonado appear clear. IMPRESSION: No acute fracture or dislocation. ACT 112: Negative or not required by law. The above report was generated using voice recognition software. It may contain grammatical, syntax or spelling errors. Electronically signed by: Ramon Montanez M.D. 01/01/2020 4:41 PM Dictated: 01/01/20 1641 Transcribed: 01/01/20 1641 Blood Pressure Blood Pressure Findings: Elevated blood pressure Blood Pressure Disposition: Referred to patients primary care provider Discharge Plan Visit Data Chief Complaint: Fall ED Provider: Ken Barrera Discharge Problem: Fall, Head injury, Forehead laceration, Contusion of face, Contusion of right upper extremity, Traumatic hematoma of right upper arm Patient Disposition: Admitted As Inpatient Condition: Good Discharge Instructions Interventions: ED Discharge Assessment Last Done: 01/01/20 19:37
--- NOTE | 2020-01-01 15:18 | XRay Report ---
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 No acute fracture or dislocation. P elvic basin phlebolith. Moderate fecal retention. IMPRESSION: No acute fracture or dislocation. ACT 112: Negative or not required by law. The above report was generated using voice recognition software. It may contain grammatical, syntax o r spelling errors. Electronically signed by: Ramon Montanez M.D. 01/01/2020 3:16 PM
--- NOTE | 2020-01-01 15:19 | XRay Report ---
XR chest 1V portable HISTORY: 84 years-old Female fall acute chest trauma status post fall COMPARISON: 07/25/2018 TECHNIQUE: Portable AP view of the chest FINDINGS: Cardiac silhouette is mildly enlarged. Calcified plaque of the thoracic aortic arch. No pneumothorax, large pleural effusion or overt pulmonary edema. Trace left pleural effusion with subsegmental left lung base opacities. Degenerative changes of the shoulders and spine. IMPRESSION: Trace left pleural effusion with subsegmental left lung base opacities suggestive of atel ectasis. ACT 112: Negative or not required by law. The above report was generated using voice recognition software. It may contain grammatical, syntax o r spelling errors. Electronically signed by: Ramon Montanez M.D. 01/01/2020 3:18 PM
--- NOTE | 2020-01-01 15:21 | XRay Report ---
XR elbow RT min 3V routine HISTORY: 84 years-old Female fall acute right elbow pain status post fall COMPARISON: None TECHNIQUE: 3 views of the right elbow FINDINGS: Mild osteoarthritis of the elbow. Small enthesophyte of the olecranon process. Marginal spurring of t he medial and lateral epicondyles. Mild dorsal soft tissue swelling. No acute fracture, dislocation, large joint effusion or opaque foreign body. IMPRESSION: Mild dorsal soft tissue swelling without acute fracture or dislocation. ACT 112: Negative or not required by law. The above report was generated using voice recognition software. It may contain grammatical, syntax o r spelling errors. Electronically signed by: Ramon Montanez M.D. 01/01/2020 3:20 PM
--- NOTE | 2020-01-01 15:24 | XRay Report ---
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 No acute fracture, dislocation or opaque foreign body. WRIST: Moderate radiocarpal with severe triscaphe and moderate first carpometacarpal osteoarthritis. No acut e fracture, dislocation or opaque foreign body. Mild dorsal soft tissue prominence. IMPRESSION: No acute fracture or dislocation. ACT 112: Negative or not required by law. The above report was generated using voice recognition software. It may contain grammatical, syntax o r spelling errors. Electronically signed by: Ramon Montanez M.D. 01/01/2020 3:22 PM
--- NOTE | 2020-01-01 15:46 | CT Scan Report ---
CT head/brain wo con CLINICAL HISTORY: 84 years-old Female with fall. Acute head and neck injury status post fall TECHNIQUE: Multiple axial CT images of the head were obtained without contrast. A dose lowering tech nique was utilized adhering to the principles of ALARA. COMPARISON: CT cervical spine and maxillofacial studies of same day, CT 07/25/2018 FINDINGS: No acute intracranial hemorrhage, midline shift, intracranial mass, hydrocephalus, territorial ischem ia or abnormal extra-axial collection. Age-related involutional changes. Mild patchy white matter hyp odensities suggest chronic microvascular ischemic disease. Senescent calcifications of the lentiform nuclei with cerebral vascular calcifications. No acute calvarial fracture. 6.0 x 1.1 cm right forehead scalp hematoma. Prior bilateral lens replace ment. The paranasal sinuses, mastoid air cells, and middle ear cavities are clear. IMPRESSION: 1. No acute intracranial abnormality or calvarial fracture. 2. Moderate sized scalp hematoma of the right forehead. ACT 112: Negative or not required by law. The above report was generated using voice recognition software. It may contain grammatical, syntax o r spelling errors. Electronically signed by: Ramon Montanez M.D. 01/01/2020 3:44 PM
--- NOTE | 2020-01-01 15:52 | CT Scan Report ---
CT cervical spine wo con CT DOSE: 1411.51 mGy.cm CLINICAL HISTORY: 84 years-old Female with fall. Acute head and neck injury status post fall COMPARISON: CT head and maxillofacial studies of same day TECHNIQUE: Multiple axial CT images of the cervical spine were obtained without contrast. A dose low ering technique was utilized adhering to the principles of ALARA. FINDINGS: Moderate multilevel discogenic degeneration with mild to moderate posterior multilevel disc space narrowing. Severe multilevel facet arthrosis. No acute fracture or subluxation. Evaluation of the central canal and neuroforamina is better assessed by MRI. Note is made of multilevel foraminal n arrowing. Trace right mastoid effusion. Lung apices are clear without pneumothorax. No prevertebral edema. Calcified plaque of the carotid bu lbs. Aberrant course of the right subclavian artery. IMPRESSION: No acute fracture or subluxation. ACT 112: Negative or not required by law. The above report was generated using voice recognition software. It may contain grammatical, syntax o r spelling errors. Electronically signed by: Ramon Montanez M.D. 01/01/2020 3:50 PM
--- NOTE | 2020-01-01 15:56 | CT Scan Report ---
CT facial bones wo con CLINICAL HISTORY: 84 years-old Female presenting with fall. Acute head, neck and facial trauma status post fall COMPARISON STUDY: CT head and cervical spine studies of same day TECHNIQUE: High-resolution CT scan of the facial bones is performed. Images are reviewed in the axia l, sagittal, and coronal planes. IV contrast was not administered for this examination. A dose lower ing technique was utilized adhering to the principles of ALARA. FINDINGS: Moderate sized hematoma of the right forehead. No opaque foreign body. Prior bilateral lens replaceme nt. Orbits are unremarkable. No acute process of the imaged intracranial structures. Streak artifact from dental amalgam hardware. Trace right mastoid effusion. Left mastoid air cells are clear. The zyg omatic arches, maxillary ospina, pterygoid plates, and orbits appear intact. No Acute displaced Facial Bone Fracture identified. Mild soft tissue swelling of nasal bridge with equivocal acute nondisplace d right-sided nasal bone fracture. IMPRESSION: 1. Moderate sized hematoma of the right forehead. 2. Equivocal acute nondisplaced right nasal bone fracture. ACT 112: Negative or not required by law. The above report was generated using voice recognition software. It may contain grammatical, syntax o r spelling errors. Electronically signed by: Ramon Montanez M.D. 01/01/2020 3:55 PM
[2020-01-01] MEDS ORDERED: ACETAMINOPHEN 325 MG TAB ONE (16:09)
[2020-01-01 16:28] LABS: Basophils # (auto) 0.02 K/uL (0-0.2); Basophils % (auto) 0.2 %; Eosinophils # (auto) 0.14 K/uL (0-0.5); Eosinophils % (auto) 1.4 %; Hematocrit (blood only) 41.8 % (37-47); Hemoglobin 13.5 g/dL (12.0-16.0); Immature Granulocytes # (auto) 0.01 K/uL (0.00-0.02); Immature Granulocytes % (auto) 0.1 %; Lymphocytes # (auto) 1.81 K/uL (1.2-3.4); Lymphocytes % (auto) 18.4 %; Mean Corpuscular Hemoglobin 29.3 pg (25-34); Mean Corpuscular Hgb Conc 32.3 g/dL (32-36); Mean Corpuscular Volume 90.9 fL (80-100); Mean Platelet Volume 9.8 fL (7.4-10.4); Monocytes % (auto) 9.1 %; Neutrophils # (auto) 6.98 K/uL (1.4-6.5); Neutrophils % (auto) 70.8 %; Platelet Count 196 K/uL (130-400); RDW Coefficient of Variation 14.2 % (11.5-14.5); RDW Standard Deviation 46.9 fL (36.4-46.3); White Blood Count 9.86 K/uL (4.8-10.8)
--- NOTE | 2020-01-01 16:43 | XRay Report ---
XR humerus RT 2V HISTORY: 84 years-old Female fall acute right upper pain status post fall COMPARISON: Right elbow radiographs of same day TECHNIQUE: 2 views the right humerus FINDINGS: Moderate glenohumeral and AC joint osteoarthritis. No acute fracture, dislocation or opaque foreign b humera. Imaged lung maldonado appear clear. IMPRESSION: No acute fracture or dislocation. ACT 112: Negative or not required by law. The above report was generated using voice recognition software. It may contain grammatical, syntax o r spelling errors. Electronically signed by: Ramon Montanez M.D. 01/01/2020 4:41 PM
[2020-01-01 16:44] LABS: Partial Thromboplastin Ratio 1.5; Partial Thromboplastin Time 41.1 Seconds (21.0-31.0); Prothrombin Time 29.9 Seconds (9.0-12.0)
[2020-01-01 16:47] LABS: Albumin Level 3.4 gm/dl (3.4-5.0); BUN Creatinine Ratio 19.6 (10-20); Calcium 8.9 mg/dl (8.5-10.1); Creatinine Clr Calc Pharmacy 54.8 ml/min; Est GFR (African American) 72.9; Est GFR (Non-African American) 62.9; Potassium 3.8 mmol/L (3.5-5.1)
[2020-01-01 16:50] LABS: Albumin Globulin Ratio 0.9 (0.9-2); Bilirubin,Total 0.9 mg/dl (0.2-1); Total Protein 7.4 gm/dl (6.4-8.2)
[2020-01-01] MEDS ORDERED: fentaNYL citrate 100 MCG/2 ML VIAL IV PRN (17:28)
[2020-01-01] MEDS ORDERED: ONDANSETRON INJ 2 MG/ML 2 ML VIAL IV STA (17:28)
[2020-01-01] MEDS ORDERED: POLYETHYLENE (MIRALAX) 17 GM PACK PO PRN (17:59)
[2020-01-01] MEDS ORDERED: NITROGLYCERIN SL 0.4 MG/TAB TAB SL PRN (17:59)
[2020-01-01] MEDS ORDERED: ALUMINUM/MAGNESIUM SUSP 30 ML UDC PO PRN (17:59)
[2020-01-01] MEDS ORDERED: MAGNESIUM HYDROXIDE SUSP 30 ML UDC PO PRN (17:59)
--- NOTE | 2020-01-01 18:24 | History & Physical Report ---
Date of Service January 01, 2020 Assessment & Plan (1) Fall: Mechanical fall, due to tripping, losing balance on the [employer]urb at the [employer] Denies of any dizzy spell lightheadedness or shortness of breath prior to the fall Large right periorbital hematoma, significant swelling on right arm possibly hematoma-patient tried to break her fall using her right arm Pain control, CT head shows no acute stroke PT OT evaluation Fall precaution Hypertensive urgency: SBP was significantly elevated, Possible secondary to sepsis severe pain, anxiety, Home medications resumed, ordered for adequate pain control, as needed hydralazine for SBP more than 160 (2) Hematoma: Secondary to fall, patient is on Coumadin INR ~ 3 Follow H&H, will give low-dose vitamin K to reduce INR less than 3-allow resolution of hematoma (3) Chronic anticoagulation: Paroxysmal A. fib on chronic anticoagulation on Coumadin, will be kept on hold as outlined above CODE STATUS: Full code DVT prophylaxis, INR therapeutic Disposition: Patient will need PT OT evaluation prior to discharge History of Present Illness Chief Complaint: Fall, hematoma Primary Care Provider: Pam Richardson, DO Disease 84-year-old female with past medical history of A. fib a flutter on Coumadin, hypertension-who sustained a fall in front of the grocery store today afternoon. As patient was stepping on the curb-tripped lost her balance, fell on her right side hitting her face. Did not loss consciousness, denies of any dizzy spell lightheadedness chest heaviness or shortness of breath prior to the fall. Patient has a large hematoma around her right eye, with laceration wound on right forehead. Has significant swelling, pain on her right arm, as she tried to brace herself with that right upper extremity to prevent the fall. CT of facial bones: Shows moderate sized hematoma of right forehead, nondisplaced right nasal bone fracture X-ray of right hand: No fracture or dislocation noted, X-ray pelvis, no acute fracture or dislocation CT head noncontrast: No acute intracranial abnormality or calvarial fracture. 6 X1.1 cm right forehead scalp hematoma Patient blood pressure was significantly elevated SBP more than 200 Patient denies of any chest heaviness, no dizzy spell or palpitation Allergies Allergy/AdvReac Type Severity Reaction Status Date / Time simvastatin Allergy Unknown Muscle Verified 01/01/20 16:05 aches. rofecoxib Allergy Face fiery Verified 01/01/20 16:05 red, no hives or swelling. Sulfa (Sulfonamide Allergy Unknown Verified 01/01/20 16:05 Antibiotics) tetracycline Allergy HIVES Verified 01/01/20 16:05 Home Medications Home Medications Medication Instructions Recorded Confirmed Type atorvastatin 10 mg PO DAILY 07/26/18 01/01/20 History hydrochlorothiazide 12.5 mg PO DAILY 07/26/18 01/01/20 History lisinopril 5 mg PO DAILY 07/26/18 01/01/20 History omeprazole 20 mg PO QAM 07/26/18 01/01/20 History warfarin 5 mg PO DAILY 07/26/18 01/01/20 History sotalol [Sotalol AF] See Rx Instructions .ROUTE .COMPLEX 01/01/20 01/01/20 History Past Med/Surg History Medical History (Updated 01/01/20 @ 20:18 by Lisa Khan MD) A-fib High blood pressure Social History Smoking Status: Never smoker Second Hand Exposure: No; Hx Alcohol Use: Yes Hx Substance Use: No Preferred Language: Polish Communication Ability: Effective Lead Principal 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 Required: No Beliefs That Will Affect Care: None Current Living Situation: Spouse and Family Feels Safe at Home: Yes Assistive Devices: Glasses Review of Systems Review of Systems: All systems reviewed & are unremarkable except as noted in HPI & below Constitutional: + body aches and + weakness Eyes: Fall-causing right orbital hematoma Musculoskeletal: Right arm swelling, pain Physical Exam Constitutional: WD/WN, vitals as above Eyes: Right orbital hematoma, patient unable to open eye, ENMT: Nose: + external nose abnormality (Swelling, ecchymosis nasal bridge) Laceration wound on right forehead Neck: trachea midline, no thyromegaly Respiratory: normal respiratory effort, lungs clear to auscultation Cardiovascular: RRR, no murmur, no edema Gastrointestinal (Abdomen): Percussion/Palpation: abdomen soft; abdomen nontender Musculoskeletal: Extremities: + upper extremity abnormal to inspection (Swelling/pain on mid arm area) Right and + limited ROM of upper extremity (Able to move secondary to significant pain) Right Neurologic: PERRL, EOMI, accommodation nl, no face palsy, no dysarthria Psychiatric: A+Ox3, euthymic affect Results & Data Results & Data ([facility]) Vital Signs (Past 12 Hours) Vital Signs Temp Pulse Resp BP Pulse Ox 01/01/20 17:49 191/89 H 97 01/01/20 15:01 68 18 223/88 H 01/01/20 15:00 63 23 01/01/20 14:38 65 23 95 01/01/20 14:36 36.8 C 68 16 192/89 H 95 01/01/20 14:35 66 14 192/[address] facial bones wo con IMPRESSION: 1. Moderate sized hematoma of the right forehead. 2. Equivocal acute nondisplaced right nasal bone fracture. 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 No acute fracture, dislocation or opaque foreign body. WRIST: Moderate radiocarpal with severe triscaphe and moderate first carpometacarpal osteoarthritis. No acute fracture, dislocation or opaque foreign body. Mild dorsal soft tissue prominence. IMPRESSION: No acute fracture or dislocation. 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 No acute fracture or dislocation. Pelvic basin phlebolith. Moderate fecal retention. IMPRESSION: No acute fracture or dislocation. CT head/brain wo con IMPRESSION: 1. No acute intracranial abnormality or calvarial fracture. 2. Moderate sized 6X 11 cm scalp hematoma of the right forehead. Code Status & VTE Plan VTE Prophylaxis Plan VTE Prophylaxis will be ordered: Yes
[2020-01-01] MEDS ORDERED: hydrALAZINE HCL 20 MG/ML VIAL IV STA (18:41)
[2020-01-01] MEDS ORDERED: PHYTONADIONE 5 MG TAB PO STA (18:43)
[2020-01-01] MEDS ORDERED: HYDROmorphone INJ 2 MG/ML SYR/VIAL IV PRN (20:35)
[2020-01-01] MEDS: HYDROmorphone INJ 1 MG/ML SYRINGE IV PRN ×2 (20:50→23:45)
[2020-01-02] MEDS: HYDROmorphone INJ 1 MG/ML SYRINGE IV PRN ×2 (05:31→23:55)
[2020-01-02] MEDS: ONDANSETRON INJ 2 MG/ML 2 ML VIAL IV PRN (05:31)
[2020-01-02 06:47] LABS: Hematocrit (blood only) 39.5 % (37-47); Hemoglobin 12.6 g/dL (12.0-16.0); Mean Corpuscular Hemoglobin 29.3 pg (25-34); Mean Corpuscular Hgb Conc 31.9 g/dL (32-36); Mean Corpuscular Volume 91.9 fL (80-100); Mean Platelet Volume 9.8 fL (7.4-10.4); Platelet Count 201 K/uL (130-400); RDW Coefficient of Variation 14.4 % (11.5-14.5); RDW Standard Deviation 48.7 fL (36.4-46.3); White Blood Count 11.38 K/uL (4.8-10.8)
[2020-01-02 06:55] LABS: INR 2.4 (0.9-1.1); Prothrombin Time 24.5 Seconds (9.0-12.0)
[2020-01-02 07:11] LABS: Calcium 8.8 mg/dl (8.5-10.1); Creatinine Clr Calc Pharmacy 62.3 ml/min; Est GFR (African American) 89.4; Est GFR (Non-African American) 77.1
--- NOTE | 2020-01-02 07:16 | Ultrasound Report ---
ULTRASOUND RIGHT UPPER EXTREMITY VENOUS CLINICAL HISTORY: Fall. Right arm pain and swelling. COMPARISON STUDY: No priors. TECHNIQUE: Real-time, grayscale, and color Doppler sonography of the deep veins of the right upper ex tremity is performed. Compression and augmentation were utilized. FINDINGS: There is no sonographic evidence of deep venous thrombosis identified in the right upper ex tremity. The right internal jugular, axillary, and brachial veins are patent and normally compressibl e. Normal venous waveforms and augmentation are seen within the right subclavian vein. The cephalic a nd basilic veins are clear. The visualized radial and ulnar veins are patent. There is a complex nonv ascular intramuscular fluid collection in the medial right upper extremity site of interest. This tiffany sures 12.4 x 3.5 x 4.4 cm and likely represents a hematoma. IMPRESSION: 1. There is no sonographic evidence of deep venous thrombosis identified in the right upper extremity . 2. There is a complex nonvascular intramuscular fluid collection at the site of interest as above. Th is likely represents a hematoma and clinical follow-up to resolution is recommended. ACT 112: Negative or not required by law. Electronically signed by: Dequan Fatima M.D. 01/02/2020 7:15 AM
[2020-01-02] MEDS: SOTALOL HCL 80 MG TAB PO SCH (08:00)
[2020-01-02] MEDS: hydroCHLOROthiazide 25 MG TAB PO SCH (08:00)
[2020-01-02] MEDS: ACETAMINOPHEN 325 MG TAB PO PRN ×2 (08:00→16:24)
[2020-01-02] MEDS: lisinopril 5 MG TAB PO SCH (08:01)
[2020-01-02] MEDS: PANTOprazole 40 MG TAB PO SCH (08:01)
[2020-01-02] MEDS: ATORVASTATIN 10 MG TAB PO SCH (08:01)
--- NOTE | 2020-01-02 09:10 | Hospitalist Progress Note ---
Date of Service January 02, 2020 Assessment & Plan (1) Fall: Mechanical fall, due to tripping on the [employer]urb at the [employer] Denies of any dizzy spell lightheadedness or shortness of breath prior to the fall Large right periorbital hematoma, significant swelling on right arm possibly he matoma-patient tried to break her fall using her right arm Pain control, CT head shows no acute stroke PT OT evaluation Fall precaution Hypertensive urgency: SBP was significantly elevated, Home medications resumed, ordered for adequate pain control, as needed hydralazine for SBP more than 160 (2) Hematoma: Secondary to fall, patient is on Coumadin INR ~ 3 Follow H&H, vitamin K to reduce INR less than 3-allow resolution of hematoma (3) Chronic anticoagulation: Paroxysmal A. fib on chronic anticoagulation on Coumadin, will be kept on hold as outlined above CODE STATUS: Full code DVT prophylaxis, INR therapeutic Disposition: Patient will need PT OT evaluation prior to discharge Labs checked ROS-No Headache, No Visual Changes, No Nausea, No Vomiting, No Fever, No Chills, No Neck Pain or Stiffness, No Chest Pain, No Palpitations, No SOB, No VARGHESE, No Cough, No Sputum, No Wheezing, No Abdominal Pain, No Diarrhea, No Hematemesis, No Hemoptysis, No Unexpected Weight Loss, No Flank pain, No Melena, No Hematochezia, No Frequency, No Urgency, No Burning, No Hematuria, No Rashes, No Diaphoresis. Appetite is Normal, Facial Pain Physical Exam Gen-AAO x 3, Large R Periorbital Edema/Hematoma, Afebrile Head-NCAT, EOMI, PERRLA, Anicteric Sclera, No Posterior Pharyngeal Erythema Neck-Supple, No JVD, No Thyromegaly, No Masses, No LAD, No Bruits Lungs-Clear to Auscultation Bilaterally, No Rales, No Rhonchi, No Wheezing, No Crepitus Chest-No S4, +S1, +S2, No S3, No Murmurs, No Rubs, No Gallops, No Ectopy Abdomen-Soft, Bowel Sounds Present, Non Tender, Non Distended, No Hepatomegaly, No Splenomegaly, No Palpable Masses, No Rebound, No Rigidity, No Guarding Musculoskeletal-Full Range of Motion Bilaterally, No CVAT Extremities-No Cyanosis, No Clubbing, No Edema Nuero-Cranial Nerves II-XII grossly intact, Motor WNL, DTRs WNL, Strength WNL, Non Focal Psych-Normal Mood Admission and Anticipated Discharge Date Admission Date: January 01, 2020 Results & Data Results & Data ([facility]) Vital Signs (Past 12 Hours) Vital Signs Temp Pulse Pulse Pulse Resp BP Pulse Ox 01/02/20 07:18 71 01/02/20 07:02 37.0 C 82 18 106/65 92 01/02/20 03:35 36.4 C L 70 16 124/76 91 01/01/20 23:12 61 01/01/20 22:00 36.5 C 53 L 18 109/67 92 01/01/20 21:52 68
[2020-01-02] MEDS ORDERED: SOD PHOSPHATE/SOD BIPHOSPHATE ENEMA 132 ML BTL PR PRN (14:09)
[2020-01-02] MEDS ORDERED: SOD PHOSPHATE/SOD BIPHOSPHATE ENEMA 132 ML BTL PR ONE (14:16)
[2020-01-03 07:01] LABS: Hematocrit (blood only) 35.3 % (37-47); Hemoglobin 11.2 g/dL (12.0-16.0); Mean Corpuscular Hemoglobin 29.2 pg (25-34); Mean Corpuscular Hgb Conc 31.7 g/dL (32-36); Mean Corpuscular Volume 91.9 fL (80-100); Mean Platelet Volume 9.8 fL (7.4-10.4); Platelet Count 184 K/uL (130-400); RDW Coefficient of Variation 14.2 % (11.5-14.5); RDW Standard Deviation 48.2 fL (36.4-46.3); Red Blood Count 3.84 M/uL (4.2-5.4); White Blood Count 11.14 K/uL (4.8-10.8)
[2020-01-03] MEDS: ONDANSETRON INJ 2 MG/ML 2 ML VIAL IV PRN (07:07)
[2020-01-03 07:08] LABS: INR 1.4 (0.9-1.1); Prothrombin Time 14.1 Seconds (9.0-12.0)
[2020-01-03 08:06] LABS: BUN Creatinine Ratio 23.3 (10-20); Creatinine Clr Calc Pharmacy 56.6 ml/min; Est GFR (African American) 77.4; Est GFR (Non-African American) 66.8; Potassium 3.7 mmol/L (3.5-5.1)
--- NOTE | 2020-01-03 08:48 | Hospitalist Progress Note ---
Date of Service January 03, 2020 Assessment & Plan (1) Fall: Mechanical fall, due to tripping on the [place]urb at the [employer] Denies of any dizzy spell lightheadedness or shortness of breath prior to the fall Large right periorbital hematoma, significant swelling on right arm possibly he matoma-patient tried to break her fall using her right arm, Arm is very swollen and painful-Will re-image R Forearm and Humerus, RUE wo clot Pain control, CT head shows no acute stroke PT OT evaluation Fall precaution Hypertensive urgency: SBP was significantly elevated, Home medications resumed, ordered for adequate pain control, as needed hydralazine for SBP more than 160 (2) Hematoma: Secondary to fall, patient is on Coumadin-Restart today (3) Chronic anticoagulation: Paroxysmal A. fib on chronic anticoagulation on Coumadin, will be kept on hold as outlined above CODE STATUS: Full code DVT prophylaxis, INR therapeutic Disposition: DC home when able UE Doppler Neg for clot Labs checked ROS-No Headache, No Visual Changes, No Nausea, No Vomiting, No Fever, No Chills, No Neck Pain or Stiffness, No Chest Pain, No Palpitations, No SOB, No VARGHESE, No Cough, No Sputum, No Wheezing, No Abdominal Pain, No Diarrhea, No Hematemesis, No Hemoptysis, No Unexpected Weight Loss, No Flank pain, No Melena, No Hematochezia, No Frequency, No Urgency, No Burning, No Hematuria, No Rashes, No Diaphoresis. Appetite is Normal, Less Facial Pain, Still RUE pain and swelling Physical Exam Gen-AAO x 3, Large R Periorbital Edema/Hematoma, Afebrile Head-NCAT, EOMI, PERRLA, Anicteric Sclera, No Posterior Pharyngeal Erythema Neck-Supple, No JVD, No Thyromegaly, No Masses, No LAD, No Bruits Lungs-Clear to Auscultation Bilaterally, No Rales, No Rhonchi, No Wheezing, No Crepitus Chest-No S4, +S1, +S2, No S3, No Murmurs, No Rubs, No Gallops, No Ectopy Abdomen-Soft, Bowel Sounds Present, Non Tender, Non Distended, No Hepatomegaly, No Splenomegaly, No Palpable Masses, No Rebound, No Rigidity, No Guarding Musculoskeletal-Full Range of Motion Bilaterally, No CVAT Extremities-No Cyanosis, No Clubbing, RUE edema and tenderness Nuero-Cranial Nerves II-XII grossly intact, Motor WNL, DTRs WNL, Strength WNL, Non Focal Psych-Normal Mood Admission and Anticipated Discharge Date Admission Date: January 01, 2020 Results & Data Results & Data ([facility]) Vital Signs (Past 12 Hours) Vital Signs Temp Pulse Resp BP BP Pulse Ox 01/03/20 08:00 37.1 C 83 18 157/67 H 91 01/03/20 07:00 36.6 C 97 H 18 154/77 H 90 01/03/20 03:45 37.0 C 95 H 20 142/74 H 96 01/02/20 23:38 37.1 C 77 20 133/62 95
[2020-01-03] MEDS: PANTOprazole 40 MG TAB PO SCH (09:07)
[2020-01-03] MEDS: hydroCHLOROthiazide 25 MG TAB PO SCH (09:07)
[2020-01-03] MEDS: ATORVASTATIN 10 MG TAB PO SCH (09:07)
[2020-01-03] MEDS: lisinopril 5 MG TAB PO SCH (09:08)
[2020-01-03] MEDS: SOTALOL HCL 80 MG TAB PO SCH (09:08)
[2020-01-03] MEDS: ACETAMINOPHEN 325 MG TAB PO PRN (09:08)
[2020-01-03] MEDS ORDERED: WARFARIN SOD 5 MG TAB PO SCH ×2 (09:30)
--- NOTE | 2020-01-03 10:09 | XRay Report ---
RIGHT HUMERUS 2 VIEWS CLINICAL HISTORY: Right arm pain and swelling. FINDINGS: AP and lateral portable views of the right humerus are compared to study dated 01/01/2020. The skeletal structures are osteopenic. There is no radiographic evidence of right humeral fracture. The elbow and wrist joints are grossly maintained. Soft tissue edema is noted in the right upper extr emity. Imaged right upper lobe lung parenchyma appears clear. IMPRESSION: Soft tissue swelling with no radiographic evidence of right humeral fracture. Electronically signed by: Dequan Fatima M.D. 01/03/2020 10:08 AM
--- NOTE | 2020-01-03 10:10 | XRay Report ---
RIGHT FOREARM 2 VIEWS CLINICAL HISTORY: Right arm pain and swelling. FINDINGS: AP and lateral portable views of the right forearm are correlated with radiographs of the r ight elbow dated 01/01/2020. The skeletal structures are osteopenic. There is no radiographic evidenc e of forearm fracture. A tiny enthesophyte is noted at the triceps insertion. The wrist and elbow ovidio nts are grossly maintained. Soft tissue edema is present in the forearm. IMPRESSION: Soft tissue swelling with no radiographic evidence of right forearm fracture. Electronically signed by: Dequan Fatima M.D. 01/03/2020 10:09 AM
[2020-01-03] MEDS ORDERED: traMADol HCL 50 MG TABLET PO PRN (11:25)
[2020-01-03] MEDS ORDERED: ACETAMINOPHEN 500 MG TAB PO SCH (12:00)
--- NOTE | 2020-01-03 13:04 | Discharge Summary ---
Date of Service January 03, 2020 Admission HPI Per Admitting Provider 84-year-old female with past medical history of A. fib a flutter on Coumadin, hypertension-who sustained a fall in front of the grocery store today afternoon. As patient was stepping on the curb-tripped lost her balance, fell on her right side hitting her face. Did not loss consciousness, denies of any dizzy spell lightheadedness chest heaviness or shortness of breath prior to the fall. Patient has a large hematoma around her right eye, with laceration wound on right forehead. Has significant swelling, pain on her right arm, as she tried to brace herself with that right upper extremity to prevent the fall. CT of facial bones: Shows moderate sized hematoma of right forehead, nondisplaced right nasal bone fracture X-ray of right hand: No fracture or dislocation noted, X-ray pelvis, no acute fracture or dislocation CT head noncontrast: No acute intracranial abnormality or calvarial fracture. 6 X1.1 cm right forehead scalp hematoma Patient blood pressure was significantly elevated SBP more than 200 Patient denies of any chest heaviness, no dizzy spell or palpitation Admission Exam Per Admitting Provider Constitutional: WD/WN, vitals as above Eyes: Right orbital hematoma, patient unable to open eye, ENMT: Nose: + external nose abnormality (Swelling, ecchymosis nasal bridge) Laceration wound on right forehead Neck: trachea midline, no thyromegaly Respiratory: normal respiratory effort, lungs clear to auscultation Cardiovascular: RRR, no murmur, no edema Gastrointestinal (Abdomen): Percussion/Palpation: abdomen soft; abdomen nontender Musculoskeletal: Extremities: + upper extremity abnormal to inspection (Swelling/pain on mid arm area) Right and + limited ROM of upper extremity (Able to move secondary to significant pain) Right Neurologic: PERRL, EOMI, accommodation nl, no face palsy, no dysarthria Psychiatric: A+Ox3, euthymic affect Principal Diagnosis Fall: Hypertensive urgency: RUE Hematoma: Chronic anticoagulation: Discharge Data Allergies Allergy/AdvReac Type Severity Reaction Status Date / Time simvastatin Allergy Unknown Muscle Verified 01/01/20 16:05 aches. rofecoxib Allergy Face fiery Verified 01/01/20 16:05 red, no hives or swelling. Sulfa (Sulfonamide Allergy Unknown Verified 01/01/20 16:05 Antibiotics) tetracycline Allergy HIVES Verified 01/01/20 16:05 Consultations 01/01/20 17:56 ED Decision to Admit Stat 01/01/20 18:01 Consult Case Management - Discharge Planning Routine Ordered Studies 01/01/20 14:42 CT cervical spine wo con Stat CT head/brain wo con Stat 01/01/20 14:43 CT facial bones wo con Stat 01/01/20 18:42 US venous doppler UE RT Urgent Hospital Course (1) Fall: Mechanical fall, due to tripping on the Curb at the Grocery Store Denies of any dizzy spell lightheadedness or shortness of breath prior to the fall Large right periorbital hematoma, significant swelling on right arm possibly hematoma-patient tried to break her fall using her right arm, Arm is very swoll en and painful-Will re-image R Forearm and Humerus, RUE wo clot Pain control, CT head shows no acute stroke US neg on RUE, no clot as well Hypertensive urgency: SBP was significantly elevated, Home medications resumed (2) Hematoma: Secondary to fall, patient is on Coumadin-Restart today (3) Chronic anticoagulation: Paroxysmal A. fib on chronic anticoagulation on Coumadin, resumed Disposition: DC home today UE Doppler Neg for clot, +Hematoma, XR repeated neg for fractures ROS-No Headache, No Visual Changes, No Nausea, No Vomiting, No Fever, No Chills, No Neck Pain or Stiffness, No Chest Pain, No Palpitations, No SOB, No VARGHESE, No Cough, No Sputum, No Wheezing, No Abdominal Pain, No Diarrhea, No Hematemesis, No Hemoptysis, No Unexpected Weight Loss, No Flank pain, No Melena, No Hematochezia, No Frequency, No Urgency, No Burning, No Hematuria, No Rashes, No Diaphoresis. Appetite is Normal, Less Facial Pain, Still RUE pain and swelling Physical Exam Gen-AAO x 3, Large R Periorbital Edema/Hematoma, Afebrile Head-NCAT, EOMI, PERRLA, Anicteric Sclera, No Posterior Pharyngeal Erythema Neck-Supple, No JVD, No Thyromegaly, No Masses, No LAD, No Bruits Lungs-Clear to Auscultation Bilaterally, No Rales, No Rhonchi, No Wheezing, No Crepitus Chest-No S4, +S1, +S2, No S3, No Murmurs, No Rubs, No Gallops, No Ectopy Abdomen-Soft, Bowel Sounds Present, Non Tender, Non Distended, No Hepatomegaly, No Splenomegaly, No Palpable Masses, No Rebound, No Rigidity, No Guarding Musculoskeletal-Full Range of Motion Bilaterally, No CVAT Extremities-No Cyanosis, No Clubbing, RUE edema and tenderness Nuero-Cranial Nerves II-XII grossly intact, Motor WNL, DTRs WNL, Strength WNL, Non Focal Psych-Normal Mood Total Time Total Time Spent Total Time Spent (In Minutes): 45 mins Total Time Includes: Examination of the Patient, Discharge Planning, Medication Reconciliation and Communication With Other Providers Discharge Plan Discharge Items Patient Disposition: Home - Self-Care Reason For Visit: FALL Discharge Diagnosis: Fall: Hypertensive urgency: RUE Hematoma: Chronic anticoagulation: Condition on Discharge: Good Activity: Resume your previous activity Lifting: Gradually increase as tolerated Bathing: No limitations Sexual Activity: When tolerated Exercise/Sports: Gradually increase as tolerated Driving/Machine Use: No limitations Weightbearing: Full weightbearing Non-emergency contact: Primary Care Provider Call non-emergency contact if: you have any medication questions Follow-up/Referrals: Pam Richardson DO [Primary Care Provider] - Diet: Heart Healthy Addtl Attending Provider Instructions: Keep Arm Elevated Pending Studies at Discharge: No Stand-Alone Forms: My [employer], Smoking Cessation Medications and DC Order Prescriptions: New tramadol 50 mg Tablet 50 mg PO Q6H PRN (Reason: pain) Qty: 30 RF: 0 acetaminophen [Tylenol Extra Strength] 500 mg tablet 500 mg PO Q4H PRN (Reason: fever or pain) Qty: 90 RF: 0 Continued atorvastatin 10 mg tablet 10 mg PO DAILY RF: 0 warfarin 5 mg tablet 5 mg PO DAILY RF: 0 omeprazole 20 mg capsule,delayed release(DR/EC) 20 mg PO QAM RF: 0 lisinopril 5 mg tablet 5 mg PO DAILY RF: 0 hydrochlorothiazide 25 mg tablet 12.5 mg PO DAILY RF: 0 sotalol [Sotalol AF] 80 mg tablet See Rx Instructions .ROUTE .COMPLEX RF: 0 Discharge Orders: Discharge Order (Routine); Ordered 01/03/20 Ordered By: Ramos Raymond Admission Data Admit Date/Time: 01/01/20 17:59 Attending Provider: Ramos Raymond Admit Provider: Lisa Khan Primary Care Provider: Pam Richardson Other Providers: Lisa Khan Other Interventions: Discharge Summary Assessment (RN) Last Done: 01/03/20 12:09
== END 2020-01-03 14:44 | disposition home or self-care (01) | DRG 605 ==
LOC: ED 14:31 → SUATTDRO 17:59 → 2N 17:59

== ENCOUNTER 2020-01-29 20:32 | Inpatient (IN) ==
[2020-01-29 21:28] LABS: Basophils # (auto) 0.01 K/uL (0-0.2); Basophils % (auto) 0.2 %; Eosinophils # (auto) 0.07 K/uL (0-0.5); Eosinophils % (auto) 1.7 %; Hematocrit (blood only) 41.2 % (37-47); Hemoglobin 13.4 g/dL (12.0-16.0); Immature Granulocytes # (auto) 0.01 K/uL (0.00-0.02); Immature Granulocytes % (auto) 0.2 %; Lymphocytes # (auto) 1.69 K/uL (1.2-3.4); Lymphocytes % (auto) 41.5 %; Mean Corpuscular Hemoglobin 29.8 pg (25-34); Mean Corpuscular Hgb Conc 32.5 g/dL (32-36); Mean Corpuscular Volume 91.6 fL (80-100); Mean Platelet Volume 9.6 fL (7.4-10.4); Monocytes # (auto) 0.66 K/uL (0.11-0.59); Monocytes % (auto) 16.2 %; Neutrophils # (auto) 1.63 K/uL (1.4-6.5); Neutrophils % (auto) 40.2 %; Platelet Count 132 K/uL (130-400); RDW Coefficient of Variation 14.9 % (11.5-14.5); RDW Standard Deviation 50.5 fL (36.4-46.3); White Blood Count 4.07 K/uL (4.8-10.8)
[2020-01-29 21:31] LABS: Alanine Aminotransferase 34 U/L (12-78); Albumin Level 3.2 gm/dl (3.4-5.0); Aspartate Aminotransferase 28 U/L (15-37); BUN Creatinine Ratio 14.5 (10-20); Blood Urea Nitrogen 11 mg/dl (7-18); Calcium 8.7 mg/dl (8.5-10.1); Carbon Dioxide 28 mmol/L (21-32); Chloride 109 mmol/L (98-107); Creatinine Clr Calc Pharmacy 57.9 ml/min; Est GFR (African American) 78.6; Est GFR (Non-African American) 67.8; Glucose 103 mg/dl (70-99); Potassium 3.5 mmol/L (3.5-5.1); Sodium 141 mmol/L (136-145)
[2020-01-29 21:36] LABS: Albumin Globulin Ratio 0.9 (0.9-2); Alkaline Phosphatase 98 U/L (45-117); Bilirubin,Total 0.9 mg/dl (0.2-1); Globulin 3.7 gm/dl (2.5-4.0); NT Pro B Type Natriuretic Pept 522 pg/ml (0-1800); Total Protein 6.9 gm/dl (6.4-8.2); Troponin I < 0.015 ng/ml (0-0.045)
[2020-01-29 21:51] LABS: INR 5.1 (0.9-1.1); Partial Thromboplastin Ratio 1.9; Prothrombin Time 49.4 Seconds (9.0-12.0)
[2020-01-29 22:10] LABS: Partial Thromboplastin Time 54.2 Seconds (21.0-31.0)
[2020-01-29] MEDS ORDERED: DEXAMETHASONE SOD INJ 10 MG/ML VIAL IV ONE (23:20)
--- NOTE | 2020-01-30 00:26 | Emergency Department Note ---
Impression & Plan COVID-19 virus infection ED Provider Note INFORMANT: Patient ED PROVIDER(S): Chet Moore MD CHIEF COMPLAINT: Illness PLAN: Disposition: Admitted Condition: Good MEDICAL DECISION MAKING: Patient presented with complaints of illness and cough. She was placed in isolation. Her symptoms are concerning for coronavirus infection. She was tested and was positive. Chest x-ray does show increased markings in the base and she does have coarse breath sounds. Given her cough and increased work of breathing coupled with a pulse oximetry in the 92% range I elected to treat her with IV Decadron. I discussed this with the patient. She also was noted to have a mild leukopenia on her CBC. Her ECG showed a sinus bradycardia without ischemia. Chemistries and troponin were unremarkable as was BNP. The patient does have a supratherapeutic INR. Given her age, comorbidities and her diminished oxygen saturation further management in the hospital for treatment is warranted. Consultation was made with of the [facility] service. The patient was evaluated in the ER for further management. Triage Nursing notes reviewed and agree them. Vital Signs: reviewed and remarkable for a low pulse oximetry measurement of 92% Differential diagnosis: COVID-19 infection reactive airway disease, pneumonia, pneumothorax, COPD, CHF, infections, cardiac ischemia, pulmonary embolism, musculoskeletal, gastrointestinal, as well as other pathologies. Diagnostics interpreted by me: ECG: Twelve-lead ECG reveals a sinus bradycardia 57 bpm. No evidence of ST elevation or depression. No PACs or PVCs. Normal axis and QRS. Cardiac Monitoring: Cardiac monitoring ordered by me: The patient was placed on continuous cardiac monitoring and observed. It revealed a normal sinus rhythm at 65 beats per minute without ectopy or evidence of dysrhythmia. Imaging studies: Chest x-ray does show some mild increased interstitial markings in the base concerning for pneumonitis mostly on the right side. No free air, pneumothorax or significant infiltrates to suggest pneumonia. Consultation(s): [facility] service HPI: The patient is a 84 year old female who presents to the Emergency Room with complaints of illness. This started 5 days ago and is worsening. The patient also notes the following associated symptoms, cough and mild chest tightness. The patient has found no relieving factors. Current pain is rated as 2/10. Patient states she was tested for Covid but was feeling worse so she came to the ER. Does not know the results. Pt denies LOC, headache, fevers, chills, diaphoresis, visual changes, neck pain, chest pain, nausea, vomiting, abdominal pain, back pain, melena, hematochezia, urinary symptoms, numbness, weakness, lymphadenopathy, rash, or other complaints. ROS: See above HPI for pertinent positives & negatives. A total of 10 systems reviewed and were otherwise negative. PAST MEDICAL HISTORY:See Below, hypertension, anticoagulation, A. fib PAST SURGICAL HISTORY:See Below, FAMILY HISTORY:See Below SOCIAL HISTORY:See Below, lives alone HOME MEDICATIONS:See Below ALLERGIES:See Below VITALS:See Below PHYSICAL EXAMINATION: GENERAL: Awake, alert, mildly ill appearing, in no distress HENT: Normocephalic, atraumatic. Oropharynx unremarkable. EYES: Normal conjunctiva. Sclera non-icteric. NECK: Inspection normal. Non-tender. Supple. No nuchal rigidity. FROM. No masses. RESPIRATORY: Coarse breath sounds. No wheezes. No rales. Increased respiratory effort. CARDIAC: Normal rate. Normal rhythm. No murmurs. No rubs. Extremities warm and well perfused. Pulses equal. No JVD. GI: Soft, non-distended. No tenderness to palpation. No rebound or guarding. No masses. RECTAL: Deferred. MUSCULOSKELETAL: Atraumatic. Chest examination reveals no tenderness. The back is symmetrical on inspection without obvious abnormality. There is no CVA tenderness to palpation. No joint edema. LOWER EXTREMITIES: Calves are equal size bilaterally and non-tender. No edema. No discoloration. NEURO: Normal sensorium. No sensory or motor deficits noted. SKIN: No rash or jaundice noted. Chet Moore MD Past Med/Surg History Medical History (Updated 01/30/20 @ 00:22 by Chet Moore MD) A-fib High blood pressure Social History Smoking Status: Never smoker Second Hand Exposure: No; Hx Alcohol Use: No Hx Substance Use: No Preferred Language: Ukrainian Communication Ability: Effective Indirect [employer] Infantry[employer] Required: No Beliefs That Will Affect Care: None marital status: Current Living Situation: Family Current Living Situation Comment: son and daughter in law Feels Safe at Home: Yes Assistive Devices: Glasses and Walker Allergies Allergies Allergy/AdvReac Type Severity Reaction Status Date / Time rofecoxib Allergy Unknown Face fiery Verified 01/29/20 21:28 red simvastatin Allergy Unknown Muscle Verified 01/29/20 21:28 aches. Sulfa (Sulfonamide Allergy Unknown Hives Verified 01/29/20 21:28 Antibiotics) tetracycline Allergy Unknown Hives Verified 01/29/20 21:28 Home Meds Home Medications Medication Instructions Recorded Confirmed atorvastatin 10 mg PO QAM 07/26/18 01/29/20 hydrochlorothiazide 12.5 mg PO QAM 07/26/18 01/29/20 lisinopril 5 mg PO QAM 07/26/18 01/29/20 omeprazole 20 mg PO QAM 07/26/18 01/29/20 warfarin 5 mg PO QPM 07/26/18 01/29/20 acetaminophen [Tylenol Extra 500 mg PO Q4H PRN 01/29/20 01/29/20 Strength] erythromycin See Rx Instructions .ROUTE .COMPLEX 01/29/20 01/29/20 sotalol See Rx Instructions .ROUTE .COMPLEX 01/29/20 01/29/20 tramadol 50 mg PO Q6H PRN 01/29/20 01/29/20 Results & Data (ED) Vital Signs Vital Signs - 24 hr 01/29/20 20:41 01/29/20 23:10 01/29/20 23:13 Temperature 37.2 C Temperature Source Oral Pulse Rate 54 L Pulse Rate [Exercises] 59 L Pulse Rate [Right Finger] 62 Respiratory Rate 14 19 Respiratory Rate [Exercises] 16 Respiratory Depth Normal Blood Pressure 210/79 H Blood Pressure [Right Arm] 196/83 H Blood Pressure Mean 122 Blood Pressure Mean [Right Arm] 120 Pulse Oximetry 97 98 Pulse Oximetry [Exercises] 92 Oxygen Delivery Method Room Air Room Air Room Air Sepsis Recent Fever Within 48 Hours No Sepsis New/Unexplained Change in Mental Status No Sepsis Action Taken by Nursing No Action Required Laboratory Data Result diagrams: 01/29/20 20:48 01/29/20 20:48 Lab Results 01/29/20 01/29/20 01/29/20 Range/Units 20:48 20:48 20:48 WBC 4.07 L (4.8-10.8) K/uL RBC 4.50 (4.2-5.4) M/uL Hgb 13.4 (12.0-16.0) g/dL Hct 41.2 (37-47) % MCV 91.6 (80-100) fL MCH 29.8 (25-34) pg MCHC 32.5 (32-36) g/dL RDW Std Deviation 50.5 H (36.4-46.3) fL RDW Coeff of Brenna 14.9 H (11.5-14.5) % Plt Count 132 (130-400) K/uL MPV 9.6 (7.4-10.4) fL Immature Gran % (Auto) 0.2 % Neut % (Auto) 40.2 % Lymph % (Auto) 41.5 % Stephens % (Auto) 16.2 % Eos % (Auto) 1.7 % Baso % (Auto) 0.2 % Neut # (Auto) 1.63 (1.4-6.5) K/uL Lymph # (Auto) 1.69 (1.2-3.4) K/uL Stephens # (Auto) 0.66 H (0.11-0.59) K/uL Eos # (Auto) 0.07 (0-0.5) K/uL Baso # (Auto) 0.01 (0-0.2) K/uL Immature Gran # (Auto) 0.01 (0.00-0.02) K/uL PT 49.4 H (9.0-12.0) Seconds INR 5.1 H (0.9-1.1) APTT 54.2 H* (21.0-31.0) Seconds PTT Ratio 1.9 Sodium 141 (136-145) mmol/L Potassium 3.5 (3.5-5.1) mmol/L Chloride 109 H (98-107) mmol/L Carbon Dioxide 28 (21-32) mmol/L Anion Gap 4.0 (3-11) BUN 11 (7-18) mg/dl Creatinine 0.79 (0.6-1.2) mg/dl Est Cr Clr Drug Dosing 57.9 ml/min Est GFR ( Amer) 78.6 Est GFR (Non-Af Amer) 67.8 BUN/Creatinine Ratio 14.5 (10-20) Glucose 103 H (70-99) mg/dl Lactate (0.4-2.0) mmol/L Calcium 8.7 (8.5-10.1) mg/dl Total Bilirubin 0.9 (0.2-1) mg/dl AST 28 (15-37) U/L ALT 34 (12-78) U/L Alkaline Phosphatase 98 (45-117) U/L Troponin I < 0.015 (0-0.045) ng/ml NT-Pro-B Natriuret Pep 522 (0-1800) pg/ml Total Protein 6.9 (6.4-8.2) gm/dl Albumin 3.2 L (3.4-5.0) gm/dl Globulin 3.7 (2.5-4.0) gm/dl Albumin/Globulin Ratio 0.9 (0.9-2) COVID-19 Eval Order SARS-CoV-2, RNA, NAAT (NEGATIVE) Blood Type Antibody Screen 01/29/20 01/29/20 01/29/20 Range/Units 22:00 22:00 22:00 WBC (4.8-10.8) K/uL RBC (4.2-5.4) M/uL Hgb (12.0-16.0) g/dL Hct (37-47) % MCV (80-100) fL MCH (25-34) pg MCHC (32-36) g/dL RDW Std Deviation (36.4-46.3) fL RDW Coeff of Brenna (11.5-14.5) % Plt Count (130-400) K/uL MPV (7.4-10.4) fL Immature Gran % (Auto) % Neut % (Auto) % Lymph % (Auto) % Stephens % (Auto) % Eos % (Auto) % Baso % (Auto) % Neut # (Auto) (1.4-6.5) K/uL Lymph # (Auto) (1.2-3.4) K/uL Stephens # (Auto) (0.11-0.59) K/uL Eos # (Auto) (0-0.5) K/uL Baso # (Auto) (0-0.2) K/uL Immature Gran # (Auto) (0.00-0.02) K/uL PT (9.0-12.0) Seconds INR (0.9-1.1) APTT (21.0-31.0) Seconds PTT Ratio Sodium (136-145) mmol/L Potassium (3.5-5.1) mmol/L Chloride (98-107) mmol/L Carbon Dioxide (21-32) mmol/L Anion Gap (3-11) BUN (7-18) mg/dl Creatinine (0.6-1.2) mg/dl Est Cr Clr Drug Dosing ml/min Est GFR ( Amer) Est GFR (Non-Af Amer) BUN/Creatinine Ratio (10-20) Glucose (70-99) mg/dl Lactate 1.1 (0.4-2.0) mmol/L Calcium (8.5-10.1) mg/dl Total Bilirubin (0.2-1) mg/dl AST (15-37) U/L ALT (12-78) U/L Alkaline Phosphatase (45-117) U/L Troponin I (0-0.045) ng/ml NT-Pro-B Natriuret Pep (0-1800) pg/ml Total Protein (6.4-8.2) gm/dl Albumin (3.4-5.0) gm/dl Globulin (2.5-4.0) gm/dl Albumin/Globulin Ratio (0.9-2) COVID-19 Eval [facility] SARS-CoV-2, RNA, NAAT POSITIVE A* (NEGATIVE) Blood Type Antibody Screen 01/29/20 Range/Units 22:24 WBC (4.8-10.8) K/uL RBC (4.2-5.4) M/uL Hgb (12.0-16.0) g/dL Hct (37-47) % MCV (80-100) fL MCH (25-34) pg MCHC (32-36) g/dL RDW Std Deviation (36.4-46.3) fL RDW Coeff of Brenna (11.5-14.5) % Plt Count (130-400) K/uL MPV (7.4-10.4) fL Immature Gran % (Auto) % Neut % (Auto) % Lymph % (Auto) % Stephens % (Auto) % Eos % (Auto) % Baso % (Auto) % Neut # (Auto) (1.4-6.5) K/uL Lymph # (Auto) (1.2-3.4) K/uL Stephens # (Auto) (0.11-0.59) K/uL Eos # (Auto) (0-0.5) K/uL Baso # (Auto) (0-0.2) K/uL Immature Gran # (Auto) (0.00-0.02) K/uL PT (9.0-12.0) Seconds INR (0.9-1.1) APTT (21.0-31.0) Seconds PTT Ratio Sodium (136-145) mmol/L Potassium (3.5-5.1) mmol/L Chloride (98-107) mmol/L Carbon Dioxide (21-32) mmol/L Anion Gap (3-11) BUN (7-18) mg/dl Creatinine (0.6-1.2) mg/dl Est Cr Clr Drug Dosing ml/min Est GFR ( Amer) Est GFR (Non-Af Amer) BUN/Creatinine Ratio (10-20) Glucose (70-99) mg/dl Lactate (0.4-2.0) mmol/L Calcium (8.5-10.1) mg/dl Total Bilirubin (0.2-1) mg/dl AST (15-37) U/L ALT (12-78) U/L Alkaline Phosphatase (45-117) U/L Troponin I (0-0.045) ng/ml NT-Pro-B Natriuret Pep (0-1800) pg/ml Total Protein (6.4-8.2) gm/dl Albumin (3.4-5.0) gm/dl Globulin (2.5-4.0) gm/dl Albumin/Globulin Ratio (0.9-2) COVID-19 Eval Order SARS-CoV-2, RNA, NAAT (NEGATIVE) Blood Type B Negative Antibody Screen NEGATIVE Administered Medications Discontinued Medications Dexamethasone (Dexamethasone Sod Inj 10 Mg/Ml Vial) 6 mg IV NOW ONE Stop: 01/29/20 23:21 Last Admin: 01/30/20 00:01 Dose: 6 mg Documented by: [id number] Discharge Plan Visit Data Chief Complaint: Illness Stated Complaint: COVID SYMPTOMS ED Provider: Chet Moore Discharge Problem: COVID-19 virus infection Forms Stand Alone Forms: My [facility] Prescriptions Prescriptions: No Action atorvastatin 10 mg tablet 10 mg PO QAM RF: 0 warfarin 5 mg tablet 5 mg PO QPM RF: 0 omeprazole 20 mg capsule,delayed release(DR/EC) 20 mg PO QAM RF: 0 lisinopril 5 mg tablet 5 mg PO QAM RF: 0 hydrochlorothiazide 25 mg tablet 12.5 mg PO QAM RF: 0 sotalol 80 mg tablet See Rx Instructions .ROUTE .COMPLEX RF: 0 erythromycin 5 mg/gram (0.5 %) ointment See Rx Instructions .ROUTE .COMPLEX RF: 0 tramadol 50 mg tablet 50 mg PO Q6H PRN (Reason: Pain) RF: 0 acetaminophen [Tylenol Extra Strength] 500 mg tablet 500 mg PO Q4H PRN (Reason: Fever Or Pain) RF: 0
[2020-01-30] MEDS ORDERED: NITROGLYCERIN SL 0.4 MG/TAB TAB SL PRN (04:07)
[2020-01-30] MEDS ORDERED: ACETAMINOPHEN 325 MG TAB PO PRN (04:07)
[2020-01-30] MEDS ORDERED: traMADol HCL 50 MG TABLET PO PRN (04:07)
[2020-01-30 05:21] LABS: Appearance Urine Cloudy (Clear); Bacteria Urine Automated 2+ (Negative); Bilirubin Urine Negative (Negative); Blood Urine 1+ (Negative); Color Urine Yellow; Epithelial Cell Urine Auto >30 /lpf (0-5); Glucose Urine UA 1+ (Negative); Ketones Urine Trace (Negative); Leukocyte Esterase Urine 3+ (Negative); Nitrite Urine Negative (Negative); Protein Urine Trace (Negative); RBC Urine Automated 0-4 /hpf (0-4); Specific Gravity Urine 1.019 (1.000-1.030); Urobilinogen Urine Negative (Negative); WBC Urine Automated >30 /hpf (0-5)
[2020-01-30 06:25] LABS: Eosinophils # (auto) 0.01 K/uL (0-0.5); Eosinophils % (auto) 0.3 %; Hematocrit (blood only) 39.9 % (37-47); Hemoglobin 12.9 g/dL (12.0-16.0); Immature Granulocytes # (auto) 0.02 K/uL (0.00-0.02); Immature Granulocytes % (auto) 0.6 %; Lymphocytes # (auto) 0.69 K/uL (1.2-3.4); Lymphocytes % (auto) 19.5 %; Mean Corpuscular Hemoglobin 29.5 pg (25-34); Mean Corpuscular Hgb Conc 32.3 g/dL (32-36); Mean Corpuscular Volume 91.1 fL (80-100); Mean Platelet Volume 9.6 fL (7.4-10.4); Monocytes # (auto) 0.12 K/uL (0.11-0.59); Monocytes % (auto) 3.4 %; Neutrophils % (auto) 76.2 %; Platelet Count 135 K/uL (130-400); RDW Coefficient of Variation 14.8 % (11.5-14.5); RDW Standard Deviation 49.7 fL (36.4-46.3); Red Blood Count 4.38 M/uL (4.2-5.4); White Blood Count 3.54 K/uL (4.8-10.8)
[2020-01-30 06:49] LABS: D Dimer 370 ug/L FEU (0-500); INR 4.8 (0.9-1.1); Prothrombin Time 46.7 Seconds (9.0-12.0)
[2020-01-30 07:02] LABS: BUN Creatinine Ratio 14.7 (10-20); Blood Urea Nitrogen 12 mg/dl (7-18); Calcium 8.7 mg/dl (8.5-10.1); Carbon Dioxide 28 mmol/L (21-32); Chloride 109 mmol/L (98-107); Creatinine Clr Calc Pharmacy 56.6 ml/min; Est GFR (African American) 78.6; Est GFR (Non-African American) 67.8; Glucose 145 mg/dl (70-99); Magnesium 2.3 mg/dl (1.8-2.4); Potassium 3.4 mmol/L (3.5-5.1); Sodium 141 mmol/L (136-145)
[2020-01-30 07:06] LABS: Troponin I < 0.015 ng/ml (0-0.045)
[2020-01-30] MEDS: cefTRIAXone SODIUM 1,000 MG in DEXTROSE 5% 50 ML IV SCH (08:12)
--- NOTE | 2020-01-30 08:18 | XRay Report ---
XR chest 1V portable HISTORY: Dyspnea COMPARISON: Chest 01/01/2020. FINDINGS: Cardiac silhouette remains mildly enlarged. There are calcified granulomas at the left lung base. No new focal lung consolidations to suggest pneumonia. No pleural effusions. No pneumothorax. No evidence for pulmonary edema. IMPRESSION: Stable mild cardiomegaly. ACT 112: Negative or not required by law. Electronically signed by: Riaz Santizo M.D. 01/30/2020 8:17 AM
[2020-01-30] MEDS ORDERED: ONDANSETRON INJ 2 MG/ML 2 ML VIAL IV PRN (08:19)
[2020-01-30] MEDS: SOTALOL HCL 80 MG TAB PO SCH (08:38)
[2020-01-30] MEDS: hydroCHLOROthiazide 25 MG TAB PO SCH (08:38)
[2020-01-30] MEDS: NYSTATIN POWDER 15GM BTL EXT SCH ×2 (08:39→21:00)
[2020-01-30] MEDS: lisinopril 5 MG TAB PO SCH (08:39)
[2020-01-30] MEDS: ERYTHROMYCIN OP OINT 5 MG/GM 3.5 GM TUBE OPR SCH ×2 (08:39→20:59)
[2020-01-30] MEDS: ATORVASTATIN 10 MG TAB PO SCH (08:39)
[2020-01-30] MEDS: PANTOprazole 40 MG TAB PO SCH (08:39)
--- NOTE | 2020-01-30 10:57 | History and Physical Report ---
DATE OF ADMISSION: 01/30/2020 CHIEF COMPLAINT: Illness, not feeling well. 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 In the ER, she was found to be COVID positive. She is saturating okay on room air. Denies any headache, no blurred vision, no runny nose. No loss of sense of smell or taste. No chest pain, no shortness of breath. Normal bowel and bladder movements. Resting comfortably and hemodynamically stable. ALLERGIES: ROFECOXIB, SIMVASTATIN, SULFA ANTIBIOTICS, TETRACYCLINE. PAST MEDICAL HISTORY: As mentioned above. PAST SURGICAL HISTORY: Colonoscopy, cystoscopy, ligation of oviducts. MEDICATIONS: The patient is on Lipitor 10 mg p.o. daily, Tylenol Extra Strength 500 mg p.o. every 4 hours p.r.n., erythromycin ophthalmic ointment to right eye twice daily, tramadol 50 mg p.o. q. 6 hours p.r.n., omeprazole 20 mg p.o. daily, hydrochlorothiazide 12.5 mg p.o. daily, sotalol 80 mg in the a.m. and 40 mg in the p.m., lisinopril 5 mg daily, Coumadin 5 mg daily. FAMILY HISTORY: Significant for father had prostate cancer. Brother has atrial fibrillation. Mother has hypertension. SOCIAL HISTORY: . No smoking. Alcohol occasional. No drug use. REVIEW OF SYMPTOMS: As per HPI. Rest of review of systems negative. PHYSICAL EXAMINATION: GENERAL: The patient is old and frail, not in acute distress. VITAL SIGNS: Temperature 36.9, pulse 65, respiratory rate 21, blood pressure 150/65, oxygen 95% on room air. HEENT: Pupils equal, round, reactive to light. Oral mucosa moist. NECK: No neck masses seen. CARDIOVASCULAR: S1, S2, regular rate and rhythm, no murmur, no gallop. RESPIRATORY SYSTEM: Normal AP diameter. No accessory muscle use. No wheezing, no crackles. ABDOMEN: Soft, bowel sounds present, nontender. No distention. CENTRAL NERVOUS SYSTEM: Cranial nerves II-XII grossly intact. Nonfocal. EXTREMITIES: No edema, no erythema. LABORATORY DATA: WBC 4, hemoglobin 13.4, hematocrit 41.2, platelets 132. Sodium 141, potassium 3.5, chloride 109, bicarbonate 28, BUN 11, creatinine 0.7, serum glucose 103, lactate 1.1, calcium 8.7, total bilirubin 0.9, AST 28, ALT 34, alkaline phosphatase 98. Troponin I less than 0.015. COVID-19 positive. Chest x-ray, stable mild cardiomegaly. EKG: Sinus bradycardia with PACs at rate of 57, no acute ST changes seen. ASSESSMENT AND PLAN: This 84-year-old female who presents with not feeling well and found to be COVID positive. 1. COVID positive, having cough, poor appetite and fatigue, saturating okay on room air, Received Decadron in the ER, which we will continue. Does not meet criteria for remdesivir at this time. We will monitor in the hospital because of her age and comorbid conditions. 2. History of paroxysmal atrial fibrillation, questionable tachybrady. Cardiology placed on Zio patch, which she still has on because of the recent fall. Continue home sotalol. Holding Coumadin because of elevated INR. Follow PT/INR daily. 3. Hypertension. Continue lisinopril and hydrochlorothiazide and sotalol. We will monitor the blood pressure. 4. Hyperlipidemia. Continue statin. 5. Urinary tract infection. Urinalysis came back as positive. We will start her on Rocephin. Follow the cultures. 6. Chronic kidney disease stage III, today creatinine of 0.7. We will follow the labs. 7. Gastroesophageal reflux disease. PPI. 8. Deep vein thrombosis prophylaxis, on Coumadin and INR is elevated. We will follow daily PT/INR. DISPOSITION: Admit to tele floor. Expect discharge home when stable and follow with family doctor. Level 1 full code. MTDD
--- NOTE | 2020-01-30 12:39 | Hospitalist Progress Note ---
Date of Service January 30, 2020 Assessment & Plan (1) COVID-19 virus infection: -Patient presented to the ED on 01/29/2020 with malaise of poor appetite, fatigue, cough and found to be COVID-19 positive -01/29/2020 CXR "Cardiac silhouette remains mildly enlarged. There are calcified granulomas at the left lung base. No new focal lung consolidations to suggest pneumonia. No pleural effusions. No pneumothorax. No evidence for pulmonary edema." -as per admissting physician Dr. Steinberg that patient saturating okay on room and does not meet criteria with remdesivir at this time, patient was started IV dexamethasone 6 mg daily and admitting hospitalist also ordered ceftriaxone in case of UTI based on bacteria in the UA -01/30/2020 day time update: Patient seen and examined at bedside in the COVID unit. Patient has been between room air to 2 liters/min nasal cannula oxygen at rest. On my exam, patient on room air at rest. She reports of history of coughing although not coughing at time of exam. Explained to patient that her INR remains elevated above 4.8 as of the labs on 01/30/2020 compared to previously elevated 5.1 on night of 01/29/2020 so the coumadin will remain held and patient will need INR to be repeated while in the hospital. Patient reports poor appetite x 1 month - discuss that she try to eat as tolerated while under watch by nursing staff, will also order sales review clerk consult. Patient also reports that at baseline in the recent past that her walking is not very good - will request PT/OT therapy to see her. Patient denies acute pain. No other symptoms on review of systems Possible Urinary Tract Infection -can continue ceftriaxone for now, follow the urine culture Paroxysmal Atrial Fibrillation Chronic Anticoagulation with Coumadin Supratherapeutic INR -continues to be on ZIO patch on admission (was placed by outpatient cardiology), monitor the telemetry -continue home dose sotalol - INR remains elevated above 4.8 as of the labs on 01/30/2020 compared to previously elevated 5.1 on night of 01/29/2020 so the coumadin will remain held and patient will need INR to be repeated while in the hospital Hypertension -Continue lisinopril and hydrochlorothiazide and statin Chronic kidney disease stage III -follow the renal function Gastroesophageal reflux disease -on PPI -diet as tolerated -sales review clerk consult DVT prophylaxis: supratherapeutic INR Admission and Anticipated Discharge Date Admission Date: January 30, 2020 Subjective Patient seen and examined at bedside in the COVID unit. Patient has been between room air to 2 liters/min nasal cannula oxygen at rest. On my exam, patient on room air at rest. She reports of history of coughing although not coughing at time of exam. Explained to patient that her INR remains elevated above 4.8 as of the labs on 01/30/2020 compared to previously elevated 5.1 on night of 01/29/2020 so the coumadin will remain held and patient will need INR to be repeated while in the hospital. Patient reports poor appetite x 1 month - discuss that she try to eat as tolerated while under watch by nursing staff, will also order sales review clerk consult. Patient also reports that at baseline in the recent past that her walking is not very good - will request PT/OT therapy to see her. Patient denies acute pain. No other symptoms on review of systems Review of Systems Review of Systems: All systems reviewed & are unremarkable except as noted in Subjective Physical Exam Constitutional: cooperative Eyes: PERRL, conjunctivae normal, anicteric sclerae EOM intact bilaterally ENMT: external ear and nose normal, oropharynx normal Neck: normal visual inspection Respiratory: normal respiratory effort Cardiovascular: Rate/Rhythm: + bradycardic Gastrointestinal (Abdomen): normal bowel sounds, soft, nontender, no hepatosplenomegaly Musculoskeletal: Head/Neck/Chest: normocephalic and head atraumatic Neurologic: PERRL, EOMI, accommodation nl, no face palsy, no dysarthria moves all extremities Psychiatric: A+Ox3, euthymic affect Results & Data Results & [facility] ([facility]) Vital Signs (Past 12 Hours) Vital Signs Temp Pulse Pulse Resp BP BP BP 01/30/20 11:05 36.8 C 56 L 18 139/62 01/30/20 08:00 51 L 01/30/20 07:49 36.9 C 65 21 150/65 H 01/30/20 04:44 60 01/30/20 04:08 36.6 C 63 16 159/75 H 01/30/20 03:29 63 23 157/77 H 01/30/20 02:36 59 L 16 171/98 H 01/30/20 01:23 66 13 174/89 H Pulse Ox 01/30/20 11:05 96 01/30/20 08:00 01/30/20 07:49 95 01/30/20 04:44 01/30/20 04:08 96 01/30/20 03:29 95 01/30/20 02:36 96 01/30/20 01:23 95
--- NOTE | 2020-01-30 19:39 | Electrocardiogram Report ---
Test Reason : Blood Pressure : / mmHG Vent. 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
[2020-01-30] MEDS: dexAMETHasone 6 MG in SYRINGE 0 ML IV SCH (20:59)
[2020-01-30] MEDS ORDERED: DEXAMETHASONE SOD INJ 10 MG/ML VIAL IV SCH (21:00)
--- NOTE | 2020-01-31 02:46 | History and Physical Report ---
jesús patrick Thanks [facility]ITALPatricia
[2020-01-31 07:07] LABS: Hematocrit (blood only) 38.4 % (37-47); Hemoglobin 12.4 g/dL (12.0-16.0); Immature Granulocytes # (auto) 0.02 K/uL (0.00-0.02); Immature Granulocytes % (auto) 0.3 %; Lymphocytes # (auto) 0.77 K/uL (1.2-3.4); Lymphocytes % (auto) 11.4 %; Mean Corpuscular Hemoglobin 29.6 pg (25-34); Mean Corpuscular Hgb Conc 32.3 g/dL (32-36); Mean Corpuscular Volume 91.6 fL (80-100); Mean Platelet Volume 10.3 fL (7.4-10.4); Monocytes # (auto) 0.31 K/uL (0.11-0.59); Monocytes % (auto) 4.6 %; Neutrophils # (auto) 5.63 K/uL (1.4-6.5); Neutrophils % (auto) 83.7 %; Platelet Count 164 K/uL (130-400); RDW Coefficient of Variation 14.6 % (11.5-14.5); RDW Standard Deviation 48.6 fL (36.4-46.3); Red Blood Count 4.19 M/uL (4.2-5.4); White Blood Count 6.73 K/uL (4.8-10.8)
[2020-01-31 07:23] LABS: INR 5.1 (0.9-1.1); Prothrombin Time 48.9 Seconds (9.0-12.0)
[2020-01-31 07:34] LABS: BUN Creatinine Ratio 19.2 (10-20); Calcium 9.3 mg/dl (8.5-10.1); Est GFR (African American) 82.3; Potassium 3.8 mmol/L (3.5-5.1)
[2020-01-31 07:37] LABS: Albumin Globulin Ratio 0.8 (0.9-2); Bilirubin,Total 0.6 mg/dl (0.2-1); Globulin 3.6 gm/dl (2.5-4.0); Total Protein 6.6 gm/dl (6.4-8.2)
[2020-01-31] MEDS: cefTRIAXone SODIUM 1,000 MG in DEXTROSE 5% 50 ML IV SCH (08:15)
[2020-01-31] MEDS: hydroCHLOROthiazide 25 MG TAB PO SCH (09:33)
[2020-01-31] MEDS: ERYTHROMYCIN OP OINT 5 MG/GM 3.5 GM TUBE OPR SCH ×2 (09:33→21:26)
[2020-01-31] MEDS: NYSTATIN POWDER 15GM BTL EXT SCH ×2 (09:33→21:28)
[2020-01-31] MEDS: lisinopril 5 MG TAB PO SCH (09:34)
[2020-01-31] MEDS: SOTALOL HCL 80 MG TAB PO SCH (09:34)
[2020-01-31] MEDS: ATORVASTATIN 10 MG TAB PO SCH (09:35)
[2020-01-31] MEDS: PANTOprazole 40 MG TAB PO SCH (09:35)
--- NOTE | 2020-01-31 14:30 | Hospitalist Progress Note ---
Date of Service January 31, 2020 Assessment & Plan (1) COVID-19 virus infection: -Patient presented to the ED on 01/29/2020 with malaise of poor appetite, fatigue, cough and found to be COVID-19 positive -01/29/2020 CXR "Cardiac silhouette remains mildly enlarged. There are calcified granulomas at the left lung base. No new focal lung consolidations to suggest pneumonia. No pleural effusions. No pneumothorax. No evidence for pulmonary edema." -as per admitting physician Dr. Steinberg that patient saturating okay on room and does not meet criteria with remdesivir at this time, patient was started IV dexamethasone 6 mg daily and admitting hospitalist also ordered ceftriaxone in case of UTI based on bacteria in the UA -01/30/2020 day time update: Patient seen and examined at bedside in the COVID unit. Patient has been between room air to 2 liters/min nasal cannula oxygen at rest. On my exam, patient on room air at rest. She reports of history of coughing although not coughing at time of exam. Explained to patient that her INR remains elevated above 4.8 as of the labs on 01/30/2020 compared to previously elevated 5.1 on night of 01/29/2020 so the coumadin will remain held and patient will need INR to be repeated while in the hospital. Patient reports poor appetite x 1 month - discuss that she try to eat as tolerated while under watch by nursing staff, will also order speech and hearing director consult. Patient also reports that at baseline in the recent past that her walking is not very good - will request PT/OT therapy to see her. Patient denies acute pain. No other symptoms on review of systems -01/31/2020: patient on room air, she feels clinically better with better appetitite and sleep while in the hospital. However, she reports she is not ready for hospital discharge as she still feels not at baseline and no one to pick her up from hospital. furthermore her INR levels are still supratherapeutic. Will continued to monitor patient in hospital Possible Urinary Tract Infection -can continue ceftriaxone for now, urine culture so far only Gardnerella-like bacilli, but because patient reports some clinical improvements then will continue antibiotics for now Paroxysmal Atrial Fibrillation Chronic Anticoagulation with Coumadin Supratherapeutic INR -continues to be on ZIO patch on admission (was placed by outpatient cardiology), monitor the telemetry -continue home dose sotalol -supratherapeutic INR of 5.1 on admission, subsequent coumadin has been held. as of 01/31/2020 INR still 5.1 but CBC stable so will continue to watch INR without vitamin K for now Hypertension -Continue lisinopril and hydrochlorothiazide and statin Chronic kidney disease stage III -follow the renal function Gastroesophageal reflux disease -on PPI -diet as tolerated -speech and hearing director consult DVT prophylaxis: supratherapeutic INR Admission and Anticipated Discharge Date Admission Date: January 30, 2020 Subjective -01/31/2020: patient on room air, she feels clinically better with better appetitite and sleep while in the hospital. However, she reports she is not ready for hospital discharge as she still feels not at baseline and no one to pick her up from hospital. furthermore her INR levels are still supratherapeutic. Will continued to monitor patient in hospital no chest pain. no abdomen pain. no vomiting. no dizziness. no headache. rest of review of systems appear negative Review of Systems Review of Systems: All systems reviewed & are unremarkable except as noted in Subjective Physical Exam Constitutional: cooperative Eyes: PERRL, conjunctivae normal, anicteric sclerae EOM intact bilaterally ENMT: external ear and nose normal, oropharynx normal Neck: normal visual inspection Respiratory: normal respiratory effort Cardiovascular: Rate/Rhythm: + bradycardic Gastrointestinal (Abdomen): normal bowel sounds, soft, nontender, no hepatosplenomegaly Musculoskeletal: Head/Neck/Chest: normocephalic and head atraumatic Neurologic: PERRL, EOMI, accommodation nl, no face palsy, no dysarthria moves all extremities Psychiatric: A+Ox3, euthymic affect Results & Data Results & Data ([facility]) Vital Signs (Past 12 Hours) Vital Signs Temp Pulse Resp BP Pulse Ox 01/31/20 12:00 36.9 C 63 18 139/60 97 01/31/20 07:00 36.9 C 66 18 130/82 96 01/31/20 03:16 36.7 C 68 18 159/64 H 94
[2020-01-31] MEDS ORDERED: DOCUSATE SODIUM 100 MG CAP PO ONE (15:55)
[2020-01-31] MEDS ORDERED: POLYETHYLENE (MIRALAX) 17 GM PACK PO PRN (15:55)
[2020-01-31] MEDS: SENNA 8.6 MG TAB PO SCH (16:51)
[2020-01-31] MEDS: DOCUSATE SODIUM 100 MG CAP PO SCH (21:26)
[2020-01-31] MEDS: dexAMETHasone 6 MG in SYRINGE 0 ML IV SCH (21:27)
[2020-02-01 07:16] LABS: INR 3.3 (0.9-1.1); Prothrombin Time 33.1 Seconds (9.0-12.0)
[2020-02-01] MEDS: cefTRIAXone SODIUM 1,000 MG in DEXTROSE 5% 50 ML IV SCH (09:05)
[2020-02-01] MEDS: NYSTATIN POWDER 15GM BTL EXT SCH ×2 (09:06→19:51)
[2020-02-01] MEDS: PANTOprazole 40 MG TAB PO SCH (09:06)
[2020-02-01] MEDS: DOCUSATE SODIUM 100 MG CAP PO SCH ×2 (09:06→19:50)
[2020-02-01] MEDS: ERYTHROMYCIN OP OINT 5 MG/GM 3.5 GM TUBE OPR SCH ×2 (09:06→19:50)
[2020-02-01] MEDS: hydroCHLOROthiazide 25 MG TAB PO SCH (09:07)
[2020-02-01] MEDS: ATORVASTATIN 10 MG TAB PO SCH (09:07)
[2020-02-01] MEDS: lisinopril 5 MG TAB PO SCH (09:07)
[2020-02-01] MEDS: SOTALOL HCL 80 MG TAB PO SCH (09:08)
[2020-02-01] MEDS: SENNA 8.6 MG TAB PO SCH (09:08)
--- NOTE | 2020-02-01 14:40 | Hospitalist Progress Note ---
Date of Service February 01, 2020 Assessment & Plan (1) COVID-19 virus infection: Initially presented with poor appetite, fatigue, cough No oxygen requirement but did have a small 2LPM requirement earlier in the admission-has been receiving decadron and Rocephin for UTI and is improved overa ll. Question if her original symptoms werent moreso related to her UTI than covid CXR clear of any infiltrates to suggest pneumonia. Cont monitoring for now, she is eating well and feeling better so would expect her to go home soon. (2) Paroxysmal atrial fibrillation: -continues to be on ZIO patch on admission (was placed by outpatient cardiology), monitor the telemetry -continue home dose sotalol -supratherapeutic INR of 5.1 on admission, subsequent coumadin has been held. -no vit K given, no bleeding -INR 3.3, with recent fall and significant bruising, patient wishes to restart coumadin tomorrow which is reasonable. (3) Supratherapeutic INR: resolved, plan as above. (4) UTI (urinary tract infection): Rocephin pending urine culture results. (5) HTN (hypertension): Continue lisinopril and hydrochlorothiazide per home regimen. Will consider stopping steroids if too high. (6) DVT prophylaxis: therapeutic INR Full Code Dispo- to home when cleared by PT and when she is feeling safe to do so. Still reports feeling uncertain and declines any rehab at this time. Omayra Mckeon DO [place] Hospitalist Admission and Anticipated Discharge Date Admission Date: January 30, 2020 Subjective 84 yo F admitted with COVID-19 infection -not requiring oxygen supplementation and denies SOB -denies pain or other issues today -tolerating PO -afebrile -very concerned about her INR which we discussed in detail Review of Systems Review of Systems: All systems reviewed & are unremarkable except as noted in Subjective Physical Exam Physical Exam: CONSTITUTIONAL: WNWD, vitals as above, generally well- appearing EYES: pupils are round and equal bilaterally, normal conjunctivae, no scleral icterus ENT: external ear and nose normal, MMM RESPIRATORY: clear to auscultation bilaterally, no crackles, rales or wheezes, normal respiratory effort CARDIOVASCULAR: regular rate and rhythm, S1 and 2 heard without murmurs, gallops or rubs, no JVD, no peripheral edema GASTROINTESTINAL: soft, nontender, nondistended, no guarding. MUSCULOSKELETAL: strength 5/5 throughout, some residual periorbital bruising that is 2 weeks old. SKIN: warm and dry NEUROLOGIC: No facial palsy, no dysarthria. CN 2-12 grossly intact, no sensory deficit, normal cognition, normal speech PSYCHIATRIC: alert cooperative and oriented to person, place and time. Results & Data Results & Data ([facility]) Vital Signs (Past 12 Hours) Vital Signs Temp Pulse Pulse Resp BP Pulse Ox 02/01/20 11:43 36.9 C 59 L 18 130/63 95 02/01/20 08:13 36.8 C 62 18 138/66 94 02/01/20 07:46 88 02/01/20 04:33 36.6 C 64 18 143/72 H 94 Medications Administered Current Inpatient Medications Acetaminophen (Acetaminophen 325 Mg Tab) 650 mg PO Q4H PRN PRN Reason: Pain or Fever Stop: 02/29/20 04:06 Atorvastatin Calcium ([facility]vastatin 10 Mg Tab) [facility] [place]: 02/29/20 08:59 Last Admin: 02/01/20 09:07 Dose: 10 mg Documented by: Docusate Sodium (Docusate Sodium 100 Mg Cap) 100 mg PO BID [facility] Stop: 03/01/20 20:59 Last Admin: 02/01/20 09:06 Dose: 100 mg Documented by: Erythromycin (Erythromycin Op Oint 5 Mg/Gm 3.5 Gm Tube) 1 appln OPR BID [facility] Stop: 02/09/20 08:59 Last Admin: 02/01/20 09:06 Dose: 1 appln Documented by: Hydrochlorothiazide (Hydrochlorothiazide 25 Mg Tab) 12.[facility] Stop: 02/29/20 08:59 Last Admin: 02/01/20 09:07 Dose: 12.5 mg Documented by: Dexamethasone Sodium Phosphate (6 mg/ Syringe) 1.5 mls @ 1 mls/min IV Q24H [facility] Stop: 02/08/20 21:02 Last Admin: 01/31/20 21:27 Dose: 1 mls/min Documented by: Ceftriaxone Sodium 1,000 mg/ (Dextrose) 50 mls @ 100 mls/hr IV Q24H [facility]; Protocol Stop: 02/09/20 06:59 Last Infusion: 12/16/20 09:35 Dose: Infused Documented by: Lisinopril (Lisinopril 5 Mg Tab) [facility] Stop: 02/29/20 08:59 Last Admin: 02/01/20 09:07 Dose: 5 mg Documented by: Nitroglycerin (Nitroglycerin Sl 0.4 Mg/Tab Tab) 0.4 mg SL UD PRN PRN Reason: Chest Pain Stop: 02/29/20 04:06 Nystatin (Nystatin Powder 15gm Btl) 1 appln EXT BID [facility] Stop: 02/29/20 08:59 Last Admin: 02/01/20 09:06 Dose: 1 appln Documented by: Ondansetron HCl (Ondansetron Inj 2 Mg/Ml 2 Ml Vial) 4 mg IV Q6H PRN PRN Reason: Nausea Stop: 02/29/20 08:18 Last Admin: 01/30/20 08:38 Dose: 4 mg Documented by: Pantoprazole Sodium (Pantoprazole 40 Mg Tab) 40 mg PO [facility] Stop: 02/29/20 08:59 Last Admin: 02/01/20 09:06 Dose: 40 mg Documented by: Polyethylene Glycol (Polyethylene (Miralax) 17 Gm Pack) 17 gm PO Q12H PRN PRN Reason: Constipation Stop: 03/01/20 15:54 Sennosides (Senna 8.6 Mg Tab) 8.6 mg PO [facility] Stop: 03/01/20 15:59 Last Admin: 02/01/20 09:08 Dose: 8.6 mg Documented by: Sotalol HCl (Sotalol Hcl 80 Mg Tab) 80 mg PO [facility] Stop: 02/29/20 08:59 Last Admin: 02/01/20 09:08 Dose: 80 mg Documented by: Tramadol HCl (Tramadol Hcl 50 Mg Tablet) 50 mg PO Q6H PRN PRN Reason: Pain Stop: 02/29/20 04:06
[2020-02-01] MEDS: dexAMETHasone 6 MG in SYRINGE 0 ML IV SCH (19:50)
[2020-02-02] MEDS: cefTRIAXone SODIUM 1,000 MG in DEXTROSE 5% 50 ML IV SCH (05:45)
[2020-02-02 07:09] LABS: INR 1.7 (0.9-1.1); Prothrombin Time 17.4 Seconds (9.0-12.0)
[2020-02-02] MEDS: PANTOprazole 40 MG TAB PO SCH (08:46)
[2020-02-02] MEDS: hydroCHLOROthiazide 25 MG TAB PO SCH (08:46)
[2020-02-02] MEDS: lisinopril 5 MG TAB PO SCH (08:46)
[2020-02-02] MEDS: ATORVASTATIN 10 MG TAB PO SCH (08:46)
[2020-02-02] MEDS: ERYTHROMYCIN OP OINT 5 MG/GM 3.5 GM TUBE OPR SCH (08:47)
[2020-02-02] MEDS: DOCUSATE SODIUM 100 MG CAP PO SCH (08:47)
[2020-02-02] MEDS: NYSTATIN POWDER 15GM BTL EXT SCH (08:47)
[2020-02-02] MEDS: SENNA 8.6 MG TAB PO SCH (08:47)
[2020-02-02] MEDS: SOTALOL HCL 80 MG TAB PO SCH (08:47)
[2020-02-02] MEDS ORDERED: WARFARIN SOD 5 MG TAB PO SCH (16:00)
--- NOTE | 2020-02-02 16:45 | Discharge Summary ---
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 In the ER, she was found to be COVID positive. She is saturating okay on room air. Denies any headache, no blurred vision, no runny nose. No loss of sense of smell or taste. No chest pain, no shortness of breath. Normal bowel and bladder movements. Resting comfortably and hemodynamically stable. Admission Exam Per Admitting Provider PHYSICAL EXAMINATION: GENERAL: The patient is old and frail, not in acute distress. VITAL SIGNS: Temperature 36.9, pulse 65, respiratory rate 21, blood pressure 150/65, oxygen 95% on room air. HEENT: Pupils equal, round, reactive to light. Oral mucosa moist. NECK: No neck masses seen. CARDIOVASCULAR: S1, S2, regular rate and rhythm, no murmur, no gallop. RESPIRATORY SYSTEM: Normal AP diameter. No accessory muscle use. No wheezing, no crackles. ABDOMEN: Soft, bowel sounds present, nontender. No distention. CENTRAL NERVOUS SYSTEM: Cranial nerves II-XII grossly intact. Nonfocal. EXTREMITIES: No edema, no erythema. Principal Diagnosis COVID-19 nausea-resolved weakness-improved Discharge Exam CONSTITUTIONAL: WNWD, vitals as above, generally well-appearing EYES: pupils are round and equal bilaterally, normal conjunctivae, no scleral icterus ENT: external ear and nose normal, MMM RESPIRATORY: clear to auscultation bilaterally, no crackles, rales or wheezes, normal respiratory effort CARDIOVASCULAR: regular rate and rhythm, S1 and 2 heard without murmurs, gallops or rubs, no JVD, no peripheral edema GASTROINTESTINAL: soft, nontender, nondistended, no guarding. MUSCULOSKELETAL: strength 5/5 throughout, some residual periorbital bruising that is 2 weeks old. SKIN: warm and dry NEUROLOGIC: No facial palsy, no dysarthria. CN 2-12 grossly intact, no sensory deficit, normal cognition, normal speech PSYCHIATRIC: alert cooperative and oriented to person, place and time. Discharge Data Allergies Allergy/AdvReac Type Severity Reaction Status Date / Time rofecoxib Allergy Unknown Face fiery Verified 01/29/20 21:28 red simvastatin Allergy Unknown Muscle Verified 01/29/20 21:28 aches. Sulfa (Sulfonamide Allergy Unknown Hives Verified 01/29/20 21:28 Antibiotics) tetracycline Allergy Unknown Hives Verified 01/29/20 21:28 Consultations 01/29/20 23:33 ED Decision to Admit Stat 01/30/20 04:07 Consult Case Management - Discharge Planning Routine Hospital Course (1) COVID-19 virus infection: Initially presented with poor appetite, fatigue, cough No oxygen requirement but did have a small 2LPM requirement earlier in the admission-has been receiving decadron and Rocephin for UTI and is improved ov erall. Question if her original symptoms werent moreso related to her UTI than covid CXR clear of any infiltrates to suggest pneumonia. (2) Paroxysmal atrial fibrillation: -continues to be on ZIO patch on admission (was placed by outpatient cardiology), monitor the telemetry -continue home dose sotalol -supratherapeutic INR of 5.1 on admission, subsequent coumadin has been held. -no vit K given, no bleeding -INR 3.3, with recent fall and significant bruising, patient to hold off restarting for one more day -On day of discharge INR was 1.7. -Close follow-up with [facility] recommended. (3) Supratherapeutic INR: (4) UTI (urinary tract infection): Ruled out. Patient grew Gardnerella in her urine culture. No antibiotics were contiued. At time of discharge she was mentating and ambulating at baseline and tolerating PO. She was hemodynamically stable and afebrile and was oxygenating well on room air. She was discharged in stable condition with close PCP followup recommended. sms Total Time Total Time Spent Total Time Spent (In Minutes): 60 Total Time Includes: Examination of the Patient, Discharge Planning, Medication Reconciliation and Communication With Other Providers Discharge Plan Discharge Items Patient Disposition: Home - Home Health Services Reason For Visit: ILLNESS Discharge Diagnosis: COVID-19 nausea-resolved weakness-improved Condition on Discharge: Good Activity: Resume your previous activity Non-emergency contact: Primary Care Provider Call non-emergency contact if: you have any medication questions, your symptoms worsen, your pain is not controlled, your pain is worsening, your pain is unusual for you, your pain is concerning for you and you have a fever Follow-up/Referrals: Pam Richardson DO [Primary Care Provider] - (Date & Time 02/08/2020 11:10 AM Provider Pam Richardson DO [facility] PLEASE NOTE THAT THIS IS A TELEPHONE APPOINTMENT. YOUR PROVIDER WILL CALL YOU AT THE APPOINTMENT TIME. IF YOU HAVE ANY QUESTIONS, PLEASE CALL ) Diet: Heart Healthy [place] Attending Provider Instructions: Telephone call appointment 02/06/2020 11:10 AM Provider Pam Richardson DO [facility] In person appointment 03/01/2020 11:10 AM Provider Pam Richardson DO [facility] [place] [employer] Provider Instructions: Please continue all medications as instructed on discharge list below. Please follow-up with primary care at date/time listed for telehealth visit. If you develop worsening shortness of breath or other concerning symptoms please return to the ER or seek immediate medical assistance. Please have Home Health person recheck your INR some time over the weekend, no later than Thursday of next week. Goal INR is 2-3. Please follow current public health policy for 10-day isolation from the public since onset of symptoms. See below: Home Isolation COVID-19 Instructions The following information about Home Isolation is from the CDC Website: https://www.cdc.gov/coronavirus/2019-ncov/hcp/erzwynio-rfdotaa-noyeya.html Stay home except to get medical care People who are mildly ill with COVID-19 are able to isolate at home during their illness. You should restrict activities outside your home, except for getting medical care. Do not go to work, school, or public areas. Avoid using public transportation, ride-sharing, or taxis. Separate yourself from other people and animals in your home People: As much as possible, you should stay in a specific room and away from other people in your home. Also, you should use a separate bathroom, if available. Animals: You should restrict contact with pets and other animals while you are sick with COVID-19, just like you would around other people. Although there have not been reports of pets or other animals becoming sick with COVID-19, it is still recommended that people sick with COVID-19 limit contact with animals until more information is known about the virus. When possible, have another member of your household care for your animals while you are sick. If you are sick with COVID-19, avoid contact with your pet, including petting, snuggling, being kissed or licked, and sharing food. If you must care for your pet or be around animals while you are sick, wash your hands before and after you interact with pets and wear a face mask. Call ahead before visiting your doctor If you have a medical appointment, call the healthcare provider and tell them that you have or may have COVID-19. This will help the healthcare providers office take steps to keep other people from getting infected or exposed. Wear a face mask You should wear a face mask when you are around other people (e.g., sharing a room or vehicle) or pets and before you enter a healthcare providers office. If you are not able to wear a face mask (for example, because it causes trouble breathing), then people who live with you should not stay in the same room with you, or they should wear a face mask if they enter your room. Cover your coughs and sneezes Cover your mouth and nose with a tissue when you cough or sneeze. Throw used tissues in a lined trash can. Immediately wash your hands with soap and water for at least 20 seconds or, if soap and water are not available, clean your hands with an alcohol-based hand dimension warehouse supervisor that contains at least 60% alcohol. Clean your hands often Wash your hands often with soap and water for at least 20 seconds, especially after blowing your nose, coughing, or sneezing; going to the bathroom; and before eating or preparing food. If soap and water are not readily available, use an alcohol-based hand dimension warehouse supervisor with at least 60% alcohol, covering all surfaces of your hands and rubbing them together until they feel dry. Soap and water are the best option if hands are visibly dirty. Avoid touching your eyes, nose, and mouth with unwashed hands. Avoid sharing personal household items You should not share dishes, drinking glasses, cups, eating utensils, towels, or bedding with other people or pets in your home. After using these items, they should be washed thoroughly with soap and water. Clean all high-touch surfaces everyday High touch surfaces include counters, tabletops, doorknobs, bathroom fixtures, toilets, phones, keyboards, tablets, and bedside tables. Also, clean any surfaces that may have blood, stool, or body fluids on them. Use a household cleaning spray or wipe, according to the label instructions. Labels contain instructions for safe and effective use of the cleaning product including precautions you should take when applying the product, such as wearing gloves and making sure you have good ventilation during use of the product. Monitor your symptoms Seek prompt medical attention if your illness is worsening (e.g., difficulty breathing).Beforeseeking care, call your healthcare provider and tell them that you have, or are being evaluated for, COVID-19. Put on a face mask before you enter the facility. These steps will help the healthcare providers office to keep other people in the office or waiting room from getting infected or exposed. Ask your healthcare provider to call the local or state health department. Persons who are placed under active monitoring or facilitated self- monitoring should follow instructions provided by their local health department or occupational health professionals, as appropriate. When working with your local health department check their available hours. If you have a medical emergency and need to call 911, notify the dispatch personnel that you have, or are being evaluated for COVID-19. If possible, put on a face mask before emergency medical services arrive. Discontinuing home isolation Patients with confirmed COVID-19 should remain under home isolation precautions until the risk of secondary transmission to others is thought to be low. The decision to discontinue home isolation precautions should be made on a [id number] basis, in consultation with healthcare providers and state and local health departments. It was a pleasure taking care of you! Please call if you have any questions or problems. You can reach a [facility] hospitalist on duty at [facility] 24 hours a day by calling [phone]. Take care of yourself. Omayra Mckeon, DO [facility] Hospitalist Pending Studies at Discharge: No Stand-Alone Forms: My [facility] Medications and DC Order Prescriptions: Continued atorvastatin 10 mg tablet 10 mg PO QAM RF: 0 warfarin 5 mg tablet 5 mg PO QPM RF: 0 omeprazole 20 mg capsule,delayed release(DR/EC) 20 mg PO QAM RF: 0 lisinopril 5 mg tablet 5 mg PO QAM RF: 0 hydrochlorothiazide 25 mg tablet 12.5 mg PO QAM RF: 0 sotalol 80 mg tablet See Rx Instructions .ROUTE .COMPLEX RF: 0 erythromycin 5 mg/gram (0.5 %) ointment See Rx Instructions .ROUTE .COMPLEX RF: 0 tramadol 50 mg tablet 50 mg PO Q6H PRN (Reason: Pain) RF: 0 acetaminophen [Tylenol Extra Strength] 500 mg tablet 500 mg PO Q4H PRN (Reason: Fever Or Pain) RF: 0 Discharge Orders: Discharge Order (Routine); Ordered 02/02/20 Ordered By: Omayra Benavides/Other Patient Handouts: COVID-19 Home Care Admission Data Admit Date/Time: 01/30/20 01:16 Attending Provider: Omayra Mckeon Admit Provider: Fritz Steinberg Primary Care Provider: Pam Richardson Other Interventions: Discharge Summary Assessment (RN) Last Done: 02/02/20 16:58
== END 2020-02-02 21:43 | disposition home health service (06) | DRG 178 ==
LOC: ED 20:32 → SUATTDRO 01-30 01:16 → 2E 01-30 01:16

== ENCOUNTER 2020-05-16 19:52 | Inpatient (IN) ==
[2020-05-16] MEDS ORDERED: SODIUM CHLORIDE 0.9% 1000ML 1,000 ML IV ONE (20:35)
[2020-05-16] MEDS ORDERED: ACETAMINOPHEN 1,000 MG/100 ML VIAL IV STA (20:35)
[2020-05-16] MEDS ORDERED: MoRPHine SULFATE 2 MG/ML CARP IV STA ×2 (20:35→23:08)
[2020-05-16] MEDS ORDERED: ONDANSETRON INJ 2 MG/ML 2 ML VIAL IV STA (20:37)
[2020-05-16 20:54] LABS: Appearance Urine Clear (Clear); Bacteria Urine Automated Negative (Negative); Bilirubin Urine Negative (Negative); Blood Urine Trace (Negative); Cast Urine Automated 0 /lpf (0-5); Color Urine Yellow; Epithelial Cell Urine Auto >30 /lpf (0-5); Glucose Urine UA Negative (Negative); Ketones Urine Negative (Negative); Leukocyte Esterase Urine 2+ (Negative); Nitrite Urine Negative (Negative); Protein Urine Negative (Negative); RBC Urine Automated 0-4 /hpf (0-4); Specific Gravity Urine 1.006 (1.000-1.030); Urobilinogen Urine Negative (Negative); pH Urine 6.5 (4.5-7.5)
[2020-05-16 21:07] LABS: Basophils # (auto) 0.02 K/uL (0-0.2); Basophils % (auto) 0.5 %; Eosinophils # (auto) 0.07 K/uL (0-0.5); Eosinophils % (auto) 1.7 %; Hematocrit (blood only) 38.6 % (37-47); Hemoglobin 13.1 g/dL (12.0-16.0); Immature Granulocytes # (auto) 0.01 K/uL (0.00-0.02); Immature Granulocytes % (auto) 0.2 %; Lymphocytes # (auto) 0.87 K/uL (1.2-3.4); Lymphocytes % (auto) 20.6 %; Mean Corpuscular Hemoglobin 29.1 pg (25-34); Mean Corpuscular Hgb Conc 33.9 g/dL (32-36); Mean Corpuscular Volume 85.8 fL (80-100); Mean Platelet Volume 9.2 fL (7.4-10.4); Monocytes # (auto) 0.45 K/uL (0.11-0.59); Monocytes % (auto) 10.7 %; Neutrophils % (auto) 66.3 %; Platelet Count 157 K/uL (130-400); RDW Coefficient of Variation 14.8 % (11.5-14.5); RDW Standard Deviation 46.6 fL (36.4-46.3); White Blood Count 4.22 K/uL (4.8-10.8)
[2020-05-16 21:19] LABS: Alanine Aminotransferase 39 U/L (12-78); Albumin Globulin Ratio 0.9 (0.9-2); Alkaline Phosphatase 94 U/L (45-117); Aspartate Aminotransferase 32 U/L (15-37); BUN Creatinine Ratio 17.3 (10-20); Bilirubin,Total 1.1 mg/dl (0.2-1); Blood Urea Nitrogen 13 mg/dl (7-18); Calcium 9.1 mg/dl (8.5-10.1); Carbon Dioxide 29 mmol/L (21-32); Chloride 108 mmol/L (98-107); Est GFR (African American) 80.5; Est GFR (Non-African American) 69.4; Globulin 3.2 gm/dl (2.5-4.0); Glucose 116 mg/dl (70-99); Lipase 222 U/L (73-393); Magnesium 2.1 mg/dl (1.8-2.4); Phosphorus 2.8 mg/dl (2.5-4.9); Potassium 3.9 mmol/L (3.5-5.1); Sodium 140 mmol/L (136-145); Total Protein 6.2 gm/dl (6.4-8.2)
[2020-05-16 21:21] LABS: INR 2.3 (0.9-1.1); Prothrombin Time 21.9 Seconds (9.0-12.0)
[2020-05-16] MEDS ORDERED: OPTIRAY 320 100ml IV ONE (21:57)
--- NOTE | 2020-05-16 22:21 | Emergency Department Note ---
Impression & Plan Pyelonephritis, Flank pain, Acute right lower quadrant pain ED Provider Note NAME: SUNDAY BEAULIEU AGE: 85 SEX: F ARRIVES VIA: Walk-In INFORMANT: Patient, ED PROVIDER(S): Xavi Be MD CHIEF COMPLAINT: Right flank pain PLAN: Disposition: Home. MEDICAL DECISION MAKING: The patient is a pleasant 85-year-old woman with a past medical history of hyperlipidemia, paroxysmal atrial fibrillation, hypertension, mitral valve regurgitation, GERD, CKD who presents to the emergency department with acute onset of right flank and right lower abdominal pain that began today with associated nausea. She reports having similar symptoms with kidney stones and kidney infection in the past. She denies any blood in her urine or burning with urination but does feel some urgency. She denies any recent fevers, chills, cough, congestion, diarrhea, chest pain or shortness of breath. She was diagnosed with COVID-19 in January and had recovered and received her second vaccination today. On arrival patient is uncomfortable no acute distress, afebrile stable vital signs. She appears clinically dry. She has mild right flank and right lower quadrant tenderness without guarding or rebound. WBC 4.2, nonspecific. H/H and platelets within normal limits. Chemistry without metabolic acidosis. Electrolytes unremarkable. Total bilirubin 1.1 however she has no epigastric or right upper quadrant tenderness. LFTs are otherwise unremarkable. Lipase is not elevated. UA with 2+ leuk esterase, WBCs but with epithelial cells present. COVID-19, influenza and RSV PCR was negative. CT done pelvis was performed and per preliminary stat rad read shows nonspecific right perirenal retroperitoneal and pericolonic inflammation. Given the patient's history of urinary infection and equivocal UA in the setting of the patient's report of urinary urgency suspect findings and symptoms are related to pyelonephritis. Will initiate treatment with ceftriaxone. Upon reevaluation the patient was feeling improved though still with 5/10 pain when she moves. She does agrees with plan for admission for further management. Case was discussed with Dr. Steinberg, [facility] hospitalist, who will evaluate the patient for admission. Triage Nursing notes reviewed and agree them. Prior medical records reviewed Vital Signs: reviewed and remarkable for no significant abnormalities Differential diagnosis: Renal colic, UTI, appendicitis, diverticulitis, mesenteric ischemia, aortic pathology, infections, inflammatory bowel disease, PUD, biliary pathology, as well as other pathologies. ER treatment provided: See below. Diagnostics interpreted by me: Cardiac Monitoring: An order for continuous cardiac monitoring was placed and demonstrated NSR, 61 bpm, no ectopy. Laboratory studies: See below Imaging studies: [facility] Preliminary Findings Only See Final Report For Complete Findings CT ABDOMEN & PELVIS With Contrast: No renal calculi or obstructive changes. Nonspecific haziness in the right perirenal, right retroperitoneal and right paracolonic gutter area areas. Could be from infiltrative sub-solid lesion/process, inflammation or ischemia. There is a broader differential Gallbladder distention. No radiodense gallstones. Hepatic cyst small low-attenuation foci in the liver and spleen. Old granulomatous disease. No radiographic evidence of pancreatitis. Small amount of fluid in the peritoneal cavity. Colonic diverticula without diverticulitis. Appendix not identified. Nonobstructive bowel gas pattern. Degenerative changes of the hips. Radiologist: Jaki Lyons M.D. Study ready at 22:16 and initial results transmitted at 22:46 Consultation(s): Case was discussed with Dr. Steinberg, [facility] hospitalist, who will evaluate the patient for admission. HPI:The patient is a pleasant 85-year-old woman with a past medical history of hyperlipidemia, paroxysmal atrial fibrillation, hypertension, mitral valve regurgitation, GERD, CKD who presents to the emergency department with acute onset of right flank and right lower abdominal pain that began today with associated nausea. She reports having similar symptoms with kidney stones and kidney infection in the past. She denies any blood in her urine or burning with urination but does feel some urgency. She denies any recent fevers, chills, cough, congestion, diarrhea, chest pain or shortness of breath. She was diagnosed with COVID-19 in January and had recovered and received her second vaccination today. ROS: See above HPI for pertinent positives & negatives. A total of 10 systems reviewed and were otherwise negative. PAST MEDICAL HISTORY:See Below PAST SURGICAL HISTORY:See Below FAMILY HISTORY:See Below SOCIAL HISTORY:See Below HOME MEDICATIONS:See Below ALLERGIES:See Below VITALS:See Below PHYSICAL EXAMINATION: GENERAL: Awake, alert, uncomfortable-appearing, in no distress HENT: Normocephalic, atraumatic. Oropharynx with dry mucous membranes and otherwise unremarkable. EYES: Normal conjunctiva. Sclera non-icteric. NECK: Supple. No nuchal rigidity. FROM. No JVD. RESPIRATORY: Clear to auscultation. CARDIAC: Regular rate, normal rhythm. Extremities warm and well perfused. Pulses equal. ABDOMEN: Soft, non-distended. Mild right flank and RLQ abdominal tenderness to palpation. No rebound or guarding. No masses. RECTAL: Deferred. MUSCULOSKELETAL: Chest examination reveals no tenderness. The back is symmetrical on inspection without obvious abnormality. There is no CVA tenderness to palpation. No joint edema. LOWER EXTREMITIES: Calves are equal size bilaterally and non-tender. No edema. No discoloration. NEURO: Normal sensorium. No sensory or motor deficits noted. SKIN: No rash or jaundice noted. Xavi Be MD Past Med/Surg History Medical History (Updated 05/17/20 @ 04:59 by Xavi Be MD) A-fib High blood pressure Social History Smoking Status: Never smoker Second Hand Exposure: No; Hx Alcohol Use: No Hx Substance Use: No Preferred Language: Portuguese Communication Ability: Effective Mixed [employer] Required: No Beliefs That Will Affect Care: None marital status: Current Living Situation: Family Current Living Situation Comment: son and daughter in law Other Information That Helps Us Care for You: No Feels Safe at Home: Yes Safety Concerns: Feels Safe At This Time Assistive Devices: Walker Assistive Devices Comment: walker when shopping Allergies Allergies Allergy/AdvReac Type Severity Reaction Status Date / Time rofecoxib Allergy Unknown Face fiery Verified 05/16/20 22:49 red simvastatin Allergy Unknown Muscle Verified 05/16/20 22:49 aches. Sulfa (Sulfonamide Allergy Unknown Hives Verified 05/16/20 22:49 Antibiotics) tetracycline Allergy Unknown Hives Verified 05/16/20 22:49 Home Meds Home Medications Medication Instructions Recorded Confirmed atorvastatin 10 mg PO QAM 07/26/18 05/16/20 hydrochlorothiazide 12.5 mg PO QAM 07/26/18 05/16/20 lisinopril 5 mg PO QAM 07/26/18 05/16/20 omeprazole 20 mg PO QAM 07/26/18 05/16/20 warfarin 5 mg PO QPM 07/26/18 05/16/20 acetaminophen [Tylenol Extra 500 mg PO Q4H PRN 12/13/20 03/31/21 Strength] sotalol See Rx Instructions .ROUTE .COMPLEX 01/29/20 05/16/20 Results & Data (ED) Vital Signs Vital Signs - 24 hr 05/16/20 19:56 05/16/20 20:41 05/16/20 20:52 Temperature 37 C Temperature Source Temporal Artery Scan Pulse Rate 67 53 L 55 L Pulse Rate [Right Finger] Pulse Rate from SpO2 Sensor 54 L 55 L Respiratory Rate 18 22 24 Respiratory Effort / Characteristics Non-Labored Respiratory Depth Normal Blood Pressure 158/71 H 174/70 H Blood Pressure [Right Arm] Blood Pressure Mean 100 104 Blood Pressure Mean [Right Arm] Pulse Oximetry 96 94 94 Oxygen Delivery Method Room Air Room Air Room Air Sepsis Recent Fever Within 48 Hours No Sepsis New/Unexplained Change in Mental Status No Sepsis Action Taken by Nursing No Action Required 05/16/20 21:00 05/16/20 21:01 05/16/20 21:06 Temperature Temperature Source Pulse Rate 57 L 60 Pulse Rate [Right Finger] Pulse Rate from SpO2 Sensor 59 L 59 L Respiratory Rate 20 22 Respiratory Effort / Characteristics Respiratory Depth Blood Pressure 154/77 H Blood Pressure [Right Arm] Blood Pressure Mean 102 Blood Pressure Mean [Right Arm] Pulse Oximetry 93 92 Oxygen Delivery Method Room Air Room Air Room Air Sepsis Recent Fever Within 48 Hours Sepsis New/Unexplained Change in Mental Status Sepsis Action Taken by Nursing 05/16/20 21:30 05/16/20 21:31 05/16/20 23:34 Temperature Temperature Source Pulse Rate 52 L 60 Pulse Rate [Right Finger] 65 Pulse Rate from SpO2 Sensor 61 Respiratory Rate 21 18 14 Respiratory Effort / Characteristics Respiratory Depth Blood Pressure 136/79 Blood Pressure [Right Arm] 151/79 H Blood Pressure Mean 98 Blood Pressure Mean [Right Arm] 103 Pulse Oximetry 93 95 Oxygen Delivery Method Room Air Room Air Room Air Sepsis Recent Fever Within 48 Hours Sepsis New/Unexplained Change in Mental Status Sepsis Action Taken by Nursing Laboratory Data Attestation: I reviewed the patient's lab results. Result diagrams: 05/16/20 20:31 05/16/20 20:31 Lab Results 05/16/20 05/16/20 05/16/20 Range/Units 20:31 20:31 20:31 WBC 4.22 L (4.8-10.8) K/uL RBC 4.50 (4.2-5.4) M/uL Hgb 13.1 (12.0-16.0) g/dL Hct 38.6 (37-47) % MCV 85.8 (80-100) fL MCH 29.1 (25-34) pg MCHC 33.9 (32-36) g/dL RDW Std Deviation 46.6 H (36.4-46.3) fL RDW Coeff of Brenna 14.8 H (11.5-14.5) % Plt Count 157 (130-400) K/uL MPV 9.2 (7.4-10.4) fL Immature Gran % (Auto) 0.2 % Neut % (Auto) 66.3 % Lymph % (Auto) 20.6 % [place] % (Auto) 10.7 % Eos % (Auto) 1.7 % Baso % (Auto) 0.5 % Neut # (Auto) 2.80 (1.4-6.5) K/uL Lymph # (Auto) 0.87 L (1.2-3.4) K/uL [place] # (Auto) 0.45 (0.11-0.59) K/uL Eos # (Auto) 0.07 (0-0.5) K/uL Baso # (Auto) 0.02 (0-0.2) K/uL Immature Gran # (Auto) 0.01 (0.00-0.02) K/uL PT 21.9 H (9.0-12.0) Seconds INR 2.3 H (0.9-1.1) Sodium 140 (136-145) mmol/L Potassium 3.9 (3.5-5.1) mmol/L Chloride 108 H (98-107) mmol/L Carbon Dioxide 29 (21-32) mmol/L Anion Gap 2.0 L (3-11) BUN 13 (7-18) mg/dl Creatinine 0.77 (0.6-1.2) mg/dl Est Cr Clr Drug Dosing Not Reportable Est GFR ( Amer) 80.5 Est GFR (Non-Af Amer) 69.4 BUN/Creatinine Ratio 17.3 (10-20) Glucose 116 H (70-99) mg/dl Calcium 9.1 (8.5-10.1) mg/dl Phosphorus 2.8 (2.5-4.9) mg/dl Magnesium 2.1 (1.8-2.4) mg/dl Total Bilirubin 1.1 H (0.2-1) mg/dl Direct Bilirubin (0-0.2) mg/dl AST 32 (15-37) U/L ALT 39 (12-78) U/L Alkaline Phosphatase 94 (45-117) U/L Total Protein 6.2 L (6.4-8.2) gm/dl Albumin 3.0 L (3.4-5.0) gm/dl Globulin 3.2 (2.5-4.0) gm/dl Albumin/Globulin Ratio 0.9 (0.9-2) Lipase 222 (73-393) U/L Specimen Hemolysis Urine Color Urine Appearance (Clear) Urine pH (4.5-7.5) Ur Specific [place] (1.000-1.030) Urine Protein (Negative) Urine Glucose (UA) (Negative) Urine Ketones (Negative) Urine Blood (Negative) Urine Nitrite (Negative) Urine Bilirubin (Negative) Urine Urobilinogen (Negative) Ur Leukocyte Esterase (Negative) Urine WBC (Auto) (0-5) /hpf Urine RBC (Auto) (0-4) /hpf U Hyaline Cast (Auto) (0-5) /lpf U Epithel Cells (Auto) (0-5) /lpf Urine Bacteria (Auto) (Negative) COVID-19 Eval Order SARS-CoV-2 (PCR) (Negative) Influenza Type A (PCR) (Neg) Influenza Type B (PCR) (Neg) RSV (RT-PCR) (Neg) 05/16/20 05/16/20 05/16/20 Range/Units 20:35 20:54 20:54 WBC (4.8-10.8) K/uL RBC (4.2-5.4) M/uL Hgb (12.0-16.0) g/dL Hct (37-47) % MCV (80-100) fL MCH (25-34) pg MCHC (32-36) g/dL RDW Std Deviation (36.4-46.3) fL RDW Coeff of Brenna (11.5-14.5) % Plt Count (130-400) K/uL MPV (7.4-10.4) fL Immature Gran % (Auto) % Neut % (Auto) % Lymph % (Auto) % [place] % (Auto) % Eos % (Auto) % Baso % (Auto) % Neut # (Auto) (1.4-6.5) K/uL Lymph # (Auto) (1.2-3.4) K/uL [place] # (Auto) (0.11-0.59) K/uL Eos # (Auto) (0-0.5) K/uL Baso # (Auto) (0-0.2) K/uL Immature Gran # (Auto) (0.00-0.02) K/uL PT (9.0-12.0) Seconds INR (0.9-1.1) Sodium (136-145) mmol/L Potassium (3.5-5.1) mmol/L Chloride (98-107) mmol/L Carbon Dioxide (21-32) mmol/L Anion Gap (3-11) BUN (7-18) mg/dl Creatinine (0.6-1.2) mg/dl Est Cr Clr Drug Dosing Est GFR ( Amer) Est GFR (Non-Af Amer) BUN/Creatinine Ratio (10-20) Glucose (70-99) mg/dl Calcium (8.5-10.1) mg/dl Phosphorus (2.5-4.9) mg/dl Magnesium (1.8-2.4) mg/dl Total Bilirubin (0.2-1) mg/dl Direct Bilirubin (0-0.2) mg/dl AST (15-37) U/L ALT (12-78) U/L Alkaline Phosphatase (45-117) U/L Total Protein (6.4-8.2) gm/dl Albumin (3.4-5.0) gm/dl Globulin (2.5-4.0) gm/dl Albumin/Globulin Ratio (0.9-2) Lipase (73-393) U/L Specimen Hemolysis Urine Color Yellow Urine Appearance Clear (Clear) Urine pH 6.5 (4.5-7.5) Ur Specific [place] 1.006 (1.000-1.030) Urine Protein Negative (Negative) Urine Glucose (UA) Negative (Negative) Urine Ketones Negative (Negative) Urine Blood Trace H (Negative) Urine Nitrite Negative (Negative) Urine Bilirubin Negative (Negative) Urine Urobilinogen Negative (Negative) Ur Leukocyte Esterase 2+ H (Negative) Urine WBC (Auto) 5-10 H (0-5) /hpf Urine RBC (Auto) 0-4 (0-4) /hpf U Hyaline Cast (Auto) 0 (0-5) /lpf U Epithel Cells (Auto) >30 H (0-5) /lpf Urine Bacteria (Auto) Negative (Negative) COVID-19 Eval Order CovFluRsv at [facility] SARS-CoV-2 (PCR) NEGATIVE (Negative) Influenza Type A (PCR) Negative (Neg) Influenza Type B (PCR) Negative (Neg) RSV (RT-PCR) Negative (Neg) Administered Medications Sodium Chloride (Nss 1000ml) 1,000 mls @ 80 mls/hr IV .[id number] ADINA Stop: 06/16/20 01:41 Last Admin: 05/17/20 02:24 Dose: 80 mls/hr Documented by: [id number] Discontinued Medications Sodium Chloride (Nss 1000ml) 1,000 mls @ 999 mls/hr IV .[id number] ONE Stop: 05/16/20 21:35 Last Infusion: 05/16/20 21:58 Dose: 0 mls/hr Documented by: [id number] Admin: 05/16/20 20:55 Dose: 999 mls/hr Documented by: [id number] Acetaminophen (Ofirmev) 1,000 mg in 100 mls @ 400 mls/hr IV NOW STA Stop: 05/16/20 20:49 Last Infusion: 05/16/20 21:17 Dose: 0 mls/hr Documented by: [id number] Admin: 05/16/20 20:55 Dose: 400 mls/hr Documented by: [id number] Ceftriaxone Sodium (Rocephin) 2,000 mg in 70 mls @ 140 mls/hr IV NOW STA Stop: 05/16/20 23:30 Last Infusion: 05/17/20 00:06 Dose: 0 mls/hr Documented by: [id number] Admin: 05/16/20 23:29 Dose: 140 mls/hr Documented by: [id number] Sodium Chloride (Nss 1000ml) 1,000 mls @ 125 mls/hr IV .Q8H ADINA Stop: 06/15/20 23:14 Last Infusion: 05/17/20 03:19 Dose: 0 mls/hr Documented by: [id number] Admin: 05/16/20 23:30 Dose: 125 mls/hr Documented by: [id number] Ioversol (Ioversol 100ml) 90 ml IV ONCE ONE Stop: 05/16/20 21:58 Last Admin: 05/16/20 21:57 Dose: 90 ml Documented by: [id number] Morphine Sulfate (Morphine Sulfate 2 Mg/Ml Carp) 1 mg IV NOW STA Stop: 05/16/20 20:36 Last Admin: 05/16/20 20:55 Dose: 1 mg Documented by: [id number] Morphine Sulfate (Morphine Sulfate 2 Mg/Ml Carp) 1 mg IV NOW STA Stop: 05/16/20 23:09 Last Admin: 05/16/20 23:30 Dose: 1 mg Documented by: [id number] Ondansetron HCl (Ondansetron Inj 2 Mg/Ml 2 Ml Vial) 4 mg IV NOW STA Stop: 05/16/20 20:38 Last Admin: 05/16/20 20:55 Dose: 4 mg Documented by: [id number] Discharge Plan Visit Data Chief Complaint: Flank Pain Stated Complaint: PAIN IN RT SIDE, KIDNEY STONE POSSIBLY ED Provider: Xavi Be Discharge Problem: Pyelonephritis, Flank pain, Acute right lower quadrant pain Patient Disposition: Admitted As Inpatient Discharge Instructions Interventions: ED Discharge Assessment Last Done: 05/17/20 01:27
[2020-05-16 22:44] LABS: Influenza A virus by PCR Negative (Neg); Influenza B virus by PCR Negative (Neg); RSV by PCR Negative (Neg); SARS CoV2 RNA(COVID-19) InHosp NEGATIVE (Negative)
[2020-05-16] MEDS ORDERED: cefTRIAXone SODIUM 2,000 MG/70 ML BAG IV STA (23:01)
[2020-05-16] MEDS ORDERED: SODIUM CHLORIDE 0.9% 1000ML 1,000 ML IV SCH (23:15)
[2020-05-17] MEDS ORDERED: ACETAMINOPHEN 325 MG TAB PO PRN (01:42)
[2020-05-17] MEDS ORDERED: MoRPHine SULFATE 2 MG/ML CARP IV PRN (01:42)
[2020-05-17] MEDS ORDERED: ONDANSETRON INJ 2 MG/ML 2 ML VIAL IV PRN (01:42)
[2020-05-17] MEDS ORDERED: ACETAMINOPHEN 500 MG TAB PO PRN (02:16)
[2020-05-17] MEDS: SODIUM CHLORIDE 0.9% 1000ML 1,000 ML IV SCH ×2 (02:24→12:54)
--- NOTE | 2020-05-17 04:38 | History and Physical Report ---
DATE OF ADMISSION: 05/17/2020 CHIEF COMPLAINT: Right flank pain. HISTORY OF PRESENT ILLNESS: This is an 85-year-old female with past medical history significant for hyperlipidemia, paroxysmal atrial fibrillation, hypertension, mitral valve regurgitation, history of atrial flutter with supraventricular tachycardia, GERD, chronic kidney disease stage III. The patient lives with her , recently son and daughter moved in. She can ambulate without any support. She is having right flank pain for a few days now. She did not want to come to the ER, but the pain was so severe today, so he had to come . The pain is in the right flank, but it is close to the hip region. The patient has history of urinary infections in the past. The patient was also diagnosed with COVID in January and she also finished the second dose of vaccine yesterday. Denies any fever, chills. No headache, no blurred visions, no earache, no runny nose, no sore throat. Appetite is down today. No dysphagia, no cough, no chest pain, no shortness of breath. Was nauseous earlier. Currently, the pain is improved with pain medication in the ER. She denies any hematuria or burning micturition. Normal bowel movements. Currently, resting comfortably and hemodynamically stable. ALLERGIES: ROFECOXIB, SIMVASTATIN, SULFA ANTIBIOTICS, TETRACYCLINE. PAST MEDICAL HISTORY: As mentioned above. PAST SURGICAL HISTORY: Colonoscopy, cystoscopy, ligation of oviduct, right entropion, cataract surgery. MEDICATIONS: The patient is on Tylenol 500 mg p.o. q. 4 hours p.r.n., atorvastatin 10 mg p.o. a.m., hydrochlorothiazide 12.5 mg p.o. a.m., lisinopril 5 mg p.o. a.m., omeprazole 20 mg p.o. a.m., sotalol 80 mg in the morning and 40 mg in the p.m., Coumadin 5 mg p.m. FAMILY HISTORY: Significant for father had prostate cancer, brother has AFib, mother has hypotension. SOCIAL HISTORY: . No smoking. Alcohol occasional. No drug use. REVIEW OF SYSTEMS: As per HPI. Rest of the review of systems negative. PHYSICAL EXAMINATION: GENERAL: The patient is of moderate build, not in acute distress. VITAL SIGNS: Temperature 37, pulse 65, respiratory rate 14, blood pressure 151/79, oxygen 95% on room air. HEENT: Pupils equal, round, and reactive to light. Oral mucosa moist. NECK: No JVD, no neck masses. CARDIOVASCULAR: S1, S2 heard. Regular rate and rhythm. No murmur, no gallop. RESPIRATORY SYSTEM: Normal AP diameter. No accessory muscle use. No wheezing, no crackles. ABDOMEN: Soft, bowel sounds present. Some tenderness in the right lower flank region. No rigidity, no distention. CENTRAL NERVOUS SYSTEM: Cranial nerves II-XII grossly intact, nonfocal. EXTREMITIES: No edema, no erythema. LABORATORY DATA: WBC 4.2, hemoglobin 13.1, hematocrit 38.6, platelets 157. PT 21.9, INR 2.3. Sodium 140, potassium 3.9, chloride 108, bicarbonate 29, BUN 13, creatinine 0.7, serum glucose 116, calcium 9.1, phosphorus 2.8, magnesium 2.1, total bilirubin 1.1, AST 32, ALT 39, alkaline phosphatase 94, lipase 222. Urinalysis, +2 leukocyte esterase. SARS-CoV-2 PCR negative. Influenza A and B PCR negative. RSV PCR negative. IMAGING DATA: CT abdomen and pelvis, preliminary report shows nonspecific haziness in the right perirenal, right retroperitoneal, and right paracolic gutter areas. ASSESSMENT AND PLAN: This is an 85-year-old female who presented with right flank pain. 1. Right flank pain: UA is positive and also CAT scan preliminary report shows some haziness in the right perirenal, right retroperitoneal, and right paracolic gutter.Possible pyelonephritis. She was started on Rocephin and gentle fluids. Follow the cultures. Follow the final report of the CAT scan. Morphine p.r.n. for pain. 2. History of atrial fibrillation, on sotalol and Coumadin. INR therapeutic. Will follow the PT/INR. 3. History of hypertension: Continue lisinopril/hydrochlorothiazide. Will monitor blood pressure. 4. History of hyperlipidemia: Continue statin. 5. History of supraventricular tachycardia: On sotalol. 6. History of mitral valve regurgitation: Will monitor for any volume overload. 7. Chronic kidney disease stage III: Presently with creatinine of 0.7. Will follow the labs. 8. Deep venous thrombosis prophylaxis, on Coumadin. DISPOSITION: Monitor in the medical floor. PT and OT prior to discharge. Social service to help with discharge planning. Level 1 full code. Expect to discharge home and follow with family doctor. COLTON
[2020-05-17 07:43] LABS: Basophils # (auto) 0.02 K/uL (0-0.2); Basophils % (auto) 0.5 %; Eosinophils # (auto) 0.12 K/uL (0-0.5); Eosinophils % (auto) 3.3 %; Hematocrit (blood only) 39.6 % (37-47); Hemoglobin 13.1 g/dL (12.0-16.0); Lymphocytes # (auto) 0.95 K/uL (1.2-3.4); Lymphocytes % (auto) 25.8 %; Mean Corpuscular Hgb Conc 33.1 g/dL (32-36); Mean Corpuscular Volume 87.8 fL (80-100); Mean Platelet Volume 9.6 fL (7.4-10.4); Monocytes # (auto) 0.56 K/uL (0.11-0.59); Monocytes % (auto) 15.2 %; Neutrophils # (auto) 2.03 K/uL (1.4-6.5); Neutrophils % (auto) 55.2 %; Platelet Count 141 K/uL (130-400); RDW Standard Deviation 48.3 fL (36.4-46.3); Red Blood Count 4.51 M/uL (4.2-5.4); White Blood Count 3.68 K/uL (4.8-10.8)
--- NOTE | 2020-05-17 07:58 | CT Scan Report ---
ABDOMEN AND PELVIS CT WITH IV CONTRAST CT DOSE: 490.76 mGy.cm HISTORY: right flank pain TECHNIQUE: Multiaxial CT images of the abdomen and pelvis were performed following the use of intrave nous contrast. A dose lowering technique was utilized adhering to the principles of ALARA. COMPARISON STUDY: Abdomen and pelvis CT 11/15/2014. FINDINGS: Lung bases are essentially clear. The heart is mildly enlarged. No pneumoperitoneum. No pne umatosis. Advanced degenerative changes seen within the bilateral hips. No suspicious lytic or blasti c osseous lesions. Stable small cysts within the liver. There is also a small splenic cyst. There are few splenic calcified granulomas. The adrenal glands and pancreas are unremarkable. No hydronephrosi s. The bladder, uterus, bilateral adnexa are within normal limits. Trace pelvic free fluid. Colonic d iverticulosis. No evidence for acute diverticulitis. No retroperitoneal lymphadenopathy. Normal calib er abdominal aorta. No bowel wall thickening or obstruction. Mild bilateral perinephric edema and rig ht perinephric fat stranding is similar to the prior study. There is a new focal area of infiltration of the right perinephric fat on image 36 measuring 2.7 cm. There is a similar appearing focus of fat ty infiltration within the right omentum on image 42 which measures 5.6 cm. These could represent are as of fat/omental infarcts. Lipomas or liposarcomas could also have a similar appearance. IMPRESSION: 1. No bowel wall thickening or obstruction. 2. Colonic diverticulosis. 3. Similar-appearing focal areas of fatty infiltration within the right perinephric and right omental locations as described above. These measure 2.7 and 5.6 cm, respectively. These could represent area s of fat/omental infarct. Lipomas or liposarcomas can also have a similar appearance. ACT 112: Positive. There are findings on this exam that require communication between the performing entity and the patient following Patient Test Result Information Act ([place] Act 112) guidelines. Electronically signed by: Riaz Santizo M.D. 05/17/2020 7:56 AM
[2020-05-17 08:14] LABS: BUN Creatinine Ratio 13.7 (10-20); Calcium 8.9 mg/dl (8.5-10.1); Creatinine Clr Calc Pharmacy 63.7 ml/min; Est GFR (African American) 90.7; Est GFR (Non-African American) 78.3; Magnesium 2.2 mg/dl (1.8-2.4); Potassium 3.7 mmol/L (3.5-5.1)
[2020-05-17 08:15] LABS: INR 2.4 (0.9-1.1); Prothrombin Time 22.4 Seconds (9.0-12.0)
[2020-05-17] MEDS: PANTOprazole 40 MG TAB PO SCH (08:57)
[2020-05-17] MEDS: hydroCHLOROthiazide 25 MG TAB PO SCH (08:57)
[2020-05-17] MEDS: ATORVASTATIN 10 MG TAB PO SCH (08:58)
[2020-05-17] MEDS: lisinopril 5 MG TAB PO SCH (08:59)
[2020-05-17] MEDS: SOTALOL HCL 80 MG TAB PO SCH (08:59)
--- NOTE | 2020-05-17 12:34 | XRay Report ---
XR hip RT min 2V HISTORY: 85 years-old Female OA chronic right hip pain COMPARISON: CT abdomen pelvis 05/16/2020 TECHNIQUE: 2 views of the right hip FINDINGS: Severe right hip posterior arthritis with prominent osteophytic spurring and subchondral sclerosis. N o acute fracture, dislocation or avascular necrosis. Phleboliths of the pelvis. IMPRESSION: 1. No acute fracture or dislocation. 2. Severe right hip posterior arthritis. ACT 112: Negative or not required by law. The above report was generated using voice recognition software. It may contain grammatical, syntax o r spelling errors. Electronically signed by: Ramon Montanez M.D. 05/17/2020 12:32 PM
--- NOTE | 2020-05-17 16:08 | Hospitalist Progress Note ---
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 Has had joint injection 1 or 2 years before relief of symptoms Right hip x-ray did show severe osteoarthritis We will give anti-inflammatory medications and continue Outpatient referral to Ortho for possible joint injection Right lower quadrant pain/right flank pain No definite cause found except severe arthritis involving the right hip joint which can sign it pain Possibility of UTI has been ruled out We will continue antibiotic for 3 days (2) Paroxysmal atrial fibrillation: Rate is controlled Continue current medication (3) HTN (hypertension): Blood pressure is controlled DVT prophylaxis On Coumadin PT and OT evaluation Possible discharge tomorrow Admission and Anticipated Discharge Date Admission Date: May 17, 2020 Subjective 05/17/2020 The patient was seen and examined in the medical floor She complains to have pain in the right hip and right groin The pain is worse with external rotation of the right and the pain is worse with Review of Systems Review of Systems: All systems reviewed and are unremarkable except as noted below Physical Exam Physical Exam: Lying in bed comfortably Constitutional: well developed and well nourished; not ill appearing Eyes: PERRL, conjunctivae normal, anicteric sclerae ENMT: external ear and nose normal, oropharynx normal Neck: trachea midline, no thyromegaly Respiratory: no respiratory distress Auscultation: lungs clear to auscultation bilaterally Cardiovascular: Rate/Rhythm: regular rate and regular rhythm Heart Sounds: no murmur Extremities: no edema Gastrointestinal (Abdomen): Inspection/Auscultation: normal bowel sounds; abdomen not distended Percussion/Palpation: abdomen soft; abdomen nontender Musculoskeletal: Hip: + limited ROM of hip (External rotation of the right hip with intense pain) Neurologic: Alert, awake and oriented Lymphatic: no cervical or axillary lymphadenopathy Results & Data Results & Data ([facility]) Vital Signs (Past 12 Hours) Vital Signs Temp Pulse BP Pulse Ox 05/17/20 08:54 36.9 C 63 135/72 94 Laboratory Results Short CBC 05/16/20 05/17/20 Range/Units 20:31 06:40 WBC 4.22 L 3.68 L (4.8-10.8) K/uL Hgb 13.1 13.1 (12.0-16.0) g/dL Hct 38.6 39.6 (37-47) % Plt Count 157 141 (130-400) K/uL BMP 05/16/20 05/17/20 20:31 06:40 Sodium 140 142 Potassium 3.9 3.7 Chloride 108 H 111 H Carbon Dioxide 29 28 BUN 13 10 Creatinine 0.77 0.69 Glucose 116 H 82 Calcium 9.1 8.9 Liver Function 05/16/20 Range/Units 20:31 Total Bilirubin 1.1 H (0.2-1) mg/dl Direct Bilirubin (0-0.2) mg/dl AST 32 (15-37) U/L ALT 39 (12-78) U/L Alkaline Phosphatase 94 (45-117) U/L Albumin 3.0 L (3.4-5.0) gm/dl Urine 05/16/20 Range/Units 20:35 Urine Color Yellow Urine Appearance Clear (Clear) Urine pH 6.5 (4.5-7.5) Ur Specific [place] 1.006 (1.000-1.030) Urine Protein Negative (Negative) Urine Glucose (UA) Negative (Negative) Medications Administered Current Inpatient Medications Acetaminophen (Acetaminophen 325 Mg Tab) 650 mg PO Q4H PRN PRN Reason: pain/fever Stop: 06/16/20 01:41 Acetaminophen (Acetaminophen 500 Mg Tab) 500 mg PO Q4H PRN PRN Reason: Fever Or Pain Stop: 06/16/20 02:15 Atorvastatin Calcium (Atorvastatin 10 Mg Tab) 10 mg PO [facility] Stop: 06/16/20 08:59 Last Admin: 05/17/20 08:58 Dose: 10 mg Documented by: Hydrochlorothiazide (Hydrochlorothiazide 25 Mg Tab) 12.5 mg PO [facility] Stop: 06/16/20 08:59 Last Admin: 05/17/20 08:57 Dose: 12.5 mg Documented by: Sodium Chloride (Nss 1000ml) 1,000 mls @ 80 mls/hr IV .[id number] [facility] Stop: 06/16/20 01:41 Last Admin: 05/17/20 12:54 Dose: 80 mls/hr Documented by: Ceftriaxone Sodium 1,000 mg/ (Dextrose) 50 mls @ 100 mls/hr IV Q24H [facility]; Protocol Stop: 05/25/20 21:29 [facility]inop[facility] ([facility] 5 Mg Tab) [facility] [place] Stop: 06/16/20 08:59 Last Admin: 05/17/20 08:59 Dose: 5 mg Documented by: Morphine Sulfate (Morphine Sulfate 2 Mg/Ml Carp) 2 mg IV Q4H PRN PRN Reason: Pain Stop: 05/31/20 01:41 Ondansetron HCl (Ondansetron Inj 2 Mg/Ml 2 Ml Vial) 4 mg IV Q6H PRN PRN Reason: Nausea Stop: 06/16/20 01:41 Pantoprazole Sodium (Pantoprazole 40 Mg Tab) [facility] [place] Stop: 06/16/20 08:59 Last Admin: 05/17/20 08:57 Dose: 40 mg Documented by: Sotalol HCl (Sotalol Hcl 80 Mg Tab) 80 mg PO QAM [facility] Stop: 06/16/20 08:59 Last Admin: 05/17/20 08:59 Dose: 80 mg Documented by: Sotalol HCl (Sotalol Hcl 80 Mg Tab) 40 mg PO PM [facility] Stop: 06/16/20 20:59 Warfarin Sodium (Warfarin Sod 5 Mg Tab) 5 mg PO QPM [facility] Stop: 06/16/20 20:59
[2020-05-17] MEDS ORDERED: oxyCODONE/ACETAMINOPHEN 5mg/325mg TAB PO PRN (16:19)
[2020-05-17] MEDS ORDERED: WARFARIN SOD 5 MG TAB PO SCH (21:00)
[2020-05-17] MEDS ORDERED: cefTRIAXone SODIUM 1,000 MG in DEXTROSE 5% 50 ML IV SCH (21:00)
[2020-05-17] MEDS ORDERED: SOTALOL HCL 80 MG TAB PO SCH (21:00)
[2020-05-18] MEDS: SODIUM CHLORIDE 0.9% 1000ML 1,000 ML IV SCH (01:28)
[2020-05-18 06:38] LABS: INR 2.3 (0.9-1.1); Prothrombin Time 21.6 Seconds (9.0-12.0)
[2020-05-18] MEDS: hydroCHLOROthiazide 25 MG TAB PO SCH (08:52)
[2020-05-18] MEDS: ATORVASTATIN 10 MG TAB PO SCH (08:52)
[2020-05-18] MEDS: SOTALOL HCL 80 MG TAB PO SCH (08:52)
[2020-05-18] MEDS: lisinopril 5 MG TAB PO SCH (08:52)
[2020-05-18] MEDS: PANTOprazole 40 MG TAB PO SCH (08:52)
--- NOTE | 2020-05-18 12:23 | Hospitalist Progress Note ---
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 Has had joint injection 1 or 2 years before relief of symptoms Right hip x-ray did show severe osteoarthritis We will give anti-inflammatory medications and continue Outpatient referral to Ortho for possible joint injection Pain is reasonably controlled with Tylenol this morning Discussed about not taking any narcotics and the patient is agreeable Has had physical therapy today without any significant pain or abnormalities in gait She will be discharged home this afternoon Right lower quadrant pain/right flank pain No definite cause found except severe arthritis involving the right hip joint which can sign it pain Possibility of UTI has been ruled out We will continue antibiotic for 3 days We will discontinue antibiotic (2) Paroxysmal atrial fibrillation: Rate is controlled Continue current medication (3) HTN (hypertension): Blood pressure is controlled DVT prophylaxis On Coumadin PT and OT evaluation She will be discharged this afternoon Admission and Anticipated Discharge Date Admission Date: May 17, 2020 Subjective 05/17/2020 The patient was seen and examined in the medical floor She complains to have pain in the right hip and right groin The pain is worse with external rotation of the right and the pain is worse with 05/18/2020 The patient was seen and examined in the She has been feeling a lot better today and denies any significant pain in the right hip She does not have any urinary symptoms Denies any fever or chills, any nausea and or vomiting She has had physical therapy this morning and did very well Review of Systems Review of Systems: All systems reviewed and are unremarkable except as noted below Musculoskeletal: + joint pain (Denies any significant pain in the right hip) Physical Exam Physical Exam: Sitting on a chair without any acute distress Constitutional: well developed and well nourished; not ill appearing Eyes: PERRL, conjunctivae normal, anicteric sclerae ENMT: external ear and nose normal, oropharynx normal Neck: trachea midline, no thyromegaly Respiratory: no respiratory distress Auscultation: lungs clear to auscultation bilaterally Cardiovascular: Rate/Rhythm: regular rate and regular rhythm Heart Sounds: no murmur Extremities: no edema Gastrointestinal (Abdomen): Inspection/Auscultation: normal bowel sounds; abdomen not distended Percussion/Palpation: abdomen soft; abdomen nontender Musculoskeletal: Hip: + limited ROM of hip (External rotation of the right hip with much less pain) Neurologic: Alert, awake and oriented x3. No focal sensory or motor deficit appreciated Lymphatic: no cervical or axillary lymphadenopathy Results & Data Results & Data ([facility]) Vital Signs (Past 12 Hours) Vital Signs Temp Pulse Resp BP Pulse Ox 05/18/20 07:52 36.8 C 61 16 151/73 H 91 Medications Administered Current Inpatient Medications Acetaminophen (Acetaminophen 325 Mg Tab) 650 mg PO Q4H PRN PRN Reason: pain/fever Stop: 06/16/20 01:41 Acetaminophen (Acetaminophen 500 Mg Tab) 500 mg PO Q4H PRN PRN Reason: Fever Or Pain Stop: 06/16/20 02:15 Last Admin: 05/18/20 02:43 Dose: 500 mg Documented by: Atorvastatin Calcium (Atorvastatin 10 Mg Tab) 10 mg PO [facility] Stop: 06/16/20 08:59 Last Admin: 05/18/20 08:52 Dose: 10 mg Documented by: Hydrochlorothiazide (Hydrochlorothiazide 25 Mg Tab) 12.5 mg PO [facility] Stop: 06/16/20 08:59 Last Admin: 05/18/20 08:52 Dose: 12.5 mg Documented by: Sodium Chloride (Nss 1000ml) 1,000 mls @ 80 mls/hr IV .[id number] [facility] Stop: 06/16/20 01:41 Last Admin: 05/18/20 01:28 Dose: 80 mls/hr Documented by: Ceftriaxone Sodium 1,000 mg/ (Dextrose) 50 mls @ 100 mls/hr IV Q24H [facility]; Protocol Stop: 05/25/20 21:29 Last Infusion: 05/17/20 20:44 Dose: Infused Documented by: Lisinopril (Lisinopril 5 Mg Tab) 5 mg PO [facility] Stop: 06/16/20 08:59 Last Admin: 05/18/20 08:52 Dose: 5 mg Documented by: Morphine Sulfate (Morphine Sulfate 2 Mg/Ml Carp) 2 mg IV Q4H PRN PRN Reason: Pain Stop: 05/31/20 01:41 Ondansetron HCl (Ondansetron Inj 2 Mg/Ml 2 Ml Vial) 4 mg IV Q6H PRN PRN Reason: Nausea Stop: 06/16/20 01:41 Oxycodone/Acetaminophen (Oxycodone/Acetaminophen 5mg/325mg Tab) 1 tab PO Q4H PRN PRN Reason: Pain Stop: 05/31/20 16:18 Pantoprazole Sodium (Pantoprazole 40 Mg Tab) 40 mg PO QAM [facility] Stop: 06/16/20 08:59 Last Admin: 05/18/20 08:52 Dose: 40 mg Documented by: Sotalol HCl (Sotalol Hcl 80 Mg Tab) 80 mg PO QAM [facility] Stop: 06/16/20 08:59 Last Admin: 05/18/20 08:52 Dose: 80 mg Documented by: Sotalol HCl (Sotalol Hcl 80 Mg Tab) 40 mg PO PM [facility] Stop: 06/16/20 20:59 Last Admin: 05/17/20 20:13 Dose: 40 mg Documented by: Warfarin Sodium (Warfarin Sod 5 Mg Tab) 5 mg PO QPM [facility] Stop: 06/16/20 20:59 Last Admin: 05/17/20 20:12 Dose: 5 mg Documented by:
--- NOTE | 2020-05-19 08:44 | Discharge Summary ---
Date of Service May 19, 2020 Admission HPI Per Admitting Provider DICTATED BY: Fritz Steinberg MD DATE OF ADMISSION: 05/17/2020 CHIEF COMPLAINT: Right flank pain. HISTORY OF PRESENT ILLNESS: This is an 85-year-old female with past medical history significant for hyperlipidemia, paroxysmal atrial fibrillation, hypertension, mitral valve regurgitation, history of atrial flutter with supraventricular tachycardia, GERD, chronic kidney disease stage III. The patient lives with her , recently son and daughter moved in. She can ambulate without any support. She is having right flank pain for a few days now. She did not want to come to the ER, but the pain was so severe today, so he had to come . The pain is in the right flank, but it is close to the hip region. The patient has history of urinary infections in the past. The patient was also diagnosed with COVID in January and she also finished the second dose of vaccine yesterday. Denies any fever, chills. No headache, no blurred visions, no earache, no runny nose, no sore throat. Appetite is down today. No dysphagia, no cough, no chest pain, no shortness of breath. Was nauseous earlier. Currently, the pain is improved with pain medication in the ER. She denies any hematuria or burning micturition. Normal bowel movements. Currently, resting comfortably and hemodynamically stable. Admission Exam Per Admitting Provider GENERAL: The patient is of moderate build, not in acute distress. VITAL SIGNS: Temperature 37, pulse 65, respiratory rate 14, blood pressure 151/79, oxygen 95% on room air. HEENT: Pupils equal, round, and reactive to light. Oral mucosa moist. NECK: No JVD, no neck masses. CARDIOVASCULAR: S1, S2 heard. Regular rate and rhythm. No murmur, no gallop. RESPIRATORY SYSTEM: Normal AP diameter. No accessory muscle use. No wheezing, no crackles. ABDOMEN: Soft, bowel sounds present. Some tenderness in the right lower flank region. No rigidity, no distention. CENTRAL NERVOUS SYSTEM: Cranial nerves II-XII grossly intact, nonfocal. EXTREMITIES: No edema, no erythema. Principal Diagnosis Severe osteoarthritis of the right hip, paroxysmal atrial fibrillation, hypertension Discharge Exam Constitutional well developed and well nourished; not ill appearing Eyes PERRL, conjunctivae normal, anicteric sclerae ENMT external ear and nose normal, oropharynx normal Neck trachea midline, no thyromegaly Respiratory no respiratory distress Auscultation: lungs clear to auscultation bilaterally Cardiovascular Rate/Rhythm: regular rate and regular rhythm Heart Sounds: no murmur Extremities: no edema Gastrointestinal (Abdomen) Inspection/Auscultation: normal bowel sounds; abdomen not distended Percussion/Palpation: abdomen soft; abdomen nontender Musculoskeletal Hip: + limited ROM of hip (External rotation of the right hip with much less pain) Lymphatic no cervical or axillary lymphadenopathy Discharge Data Allergies Allergy/AdvReac Type Severity Reaction Status Date / Time rofecoxib Allergy Unknown Face fiery Verified 05/16/20 22:49 red simvastatin Allergy Unknown Muscle Verified 05/16/20 22:49 aches. 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 Has had joint injection 1 or 2 years before relief of symptoms Right hip x-ray did show severe osteoarthritis We will give anti-inflammatory medications and continue Outpatient referral to Ortho for possible joint injection Pain is reasonably controlled with Tylenol this morning Discussed about not taking any narcotics and the patient is agreeable Has had physical therapy today without any significant pain or abnormalities in gait She will be discharged home this afternoon Right lower quadrant pain/right flank pain No definite cause found except severe arthritis involving the right hip joint which can sign it pain Possibility of UTI has been ruled out We will continue antibiotic for 3 days We will discontinue antibiotic (2) Paroxysmal atrial fibrillation: Rate is controlled Continue current medication (3) HTN (hypertension): Blood pressure is controlled DVT prophylaxis On Coumadin PT and OT evaluation She will be discharged this afternoon Total Time Total Time Spent Total Time Spent (In Minutes): 35 minutes Total Time Includes: Examination of the Patient, Discharge Planning, Medication Reconciliation and Communication With Other Providers Discharge Plan Discharge Items Patient Disposition: Home - Self-Care Reason For Visit: FLANK PAIN Discharge Diagnosis: Severe osteoarthritis of the right hip, paroxysmal atrial fibrillation, hypertension Condition on Discharge: Good Activity: Resume your previous activity Non-emergency contact: Primary Care Provider Call non-emergency contact if: you have any medication questions and your symptoms worsen Follow-up/Referrals: Pam Richardson DO [Primary Care Provider] - (Date & Time 05/23/2020 11:00 AM Provider Marichuy Cho DO [facility] ) Estiven Samayoa MD [Physician] - 06/08/20 1:00 pm ( Dr. Estiven Samayoa [address], [address] [facility], [place] [address] ) Diet: Heart Healthy Addtl Attending Provider Instructions: Please take precautions to avoid fall Take Tylenol 1 g up to 3 times a day to control pain Do not take any NSAID use for pain Please have regular follow-up with your coagulation clinic to maintain INR in between 2-3 and take Coumadin accordingly Pending Studies at Discharge: No Stand-Alone Forms: My [facility] Intense, Smoking Cessation Medications and DC Order Prescriptions: Continued atorvastatin 10 mg tablet 10 mg PO QAM RF: 0 warfarin 5 mg tablet 5 mg PO QPM RF: 0 omeprazole 20 mg capsule,delayed release(DR/EC) 20 mg PO QAM RF: 0 lisinopril 5 mg tablet 5 mg PO QAM RF: 0 hydrochlorothiazide 25 mg tablet 12.5 mg PO QAM RF: 0 sotalol 80 mg tablet See Rx Instructions .ROUTE .COMPLEX RF: 0 acetaminophen [Tylenol Extra Strength] 500 mg tablet 500 mg PO Q4H PRN (Reason: Fever Or Pain) RF: 0 Discharge Orders: Discharge Order (Routine); Ordered 05/18/20 Ordered By: Mor Delgado Admission Data Admit Date/Time: 05/17/20 01:02 Attending Provider: Mor Delgado Admit Provider: Fritz Steinberg Primary Care Provider: Pam Richardson Other Providers: Fritz Steinberg Other Interventions: Discharge Summary Assessment (RN) Last Done: 05/18/20 13:45
== END 2020-05-18 14:16 | disposition home or self-care (01) | DRG 554 ==
LOC: ED 19:52 → 3W 05-17 01:02

== ENCOUNTER 2021-06-15 10:05 | Inpatient (IN) ==
--- NOTE | 2021-06-15 10:52 | Emergency Department Note ---
History of Present Illness General Chief complaint: Dizziness Stated complaint: DIZZINESS SINCE , , Time Seen by Provider: 06/15/21 10:39 Source: patient and family (Sister who is at the) Mode of arrival: ambulatory Limitations: no limitations History of Present Illness This patient is an 86-year-old female who comes in after feeling dizzy since Thursday. It started Thursday night into . Is actually worse when she lays flat. Is not spinning is more just a lightheadedness. She denies any headache. She is had a sore throat but when she coughed up some hard stuff the other day it felt better. No chest pain or palpitations no shortness of breath no abdominal pain no blood or melena stool no focal numbness weakness no change in vision. She is here with her sister who says that she is followed by Dr. Dimitri dover and the ER considering putting a pacemaker in her and was told to come to the ER if she gets dizzy. Home Medications Medication Instructions Recorded Confirmed Type atorvastatin 10 mg tablet 10 mg PO QAM 07/26/18 06/15/21 History hydrochlorothiazide 25 mg tablet 12.5 mg PO QAM 07/26/18 06/15/21 History lisinopril 5 mg tablet 5 mg PO QAM 07/26/18 06/15/21 History omeprazole 20 mg capsule,delayed 20 mg PO QAM 07/26/18 06/15/21 History release warfarin 5 mg tablet 5 mg PO QPM 07/26/18 06/15/21 History acetaminophen 500 mg tablet 500 mg PO Q4H PRN 01/29/20 06/15/21 History (Tylenol Extra Strength) sotalol 80 mg tablet 120 mg PO DAILY 01/29/20 06/15/21 History Allergies Allergy/AdvReac Type Severity Reaction Status Date / Time rofecoxib Allergy Unknown Face fiery Verified 05/16/20 22:49 red simvastatin Allergy Unknown Muscle Verified 05/16/20 22:49 aches. Sulfa (Sulfonamide Allergy Unknown Hives Verified 05/16/20 22:49 Antibiotics) tetracycline Allergy Unknown Hives Verified 05/16/20 22:49 Past Med/Surg History Medical History (Updated 06/15/21 @ 15:51 by Alfonso Logan MD) A-fib High blood pressure Social History Smoking Status: Never smoker Second Hand Exposure: No; Hx Alcohol Use: No Hx Substance Use: No Preferred Language: Greenlandic Communication Ability: Effective Pattern Painter Required: No Beliefs That Will Affect Care: None marital status: Current Living Situation: Family Current Living Situation Comment: son and daughter in law Feels Safe at Home: Yes Assistive Devices: Walker Review of Systems A total of 10 systems reviewed and were otherwise negative Physical Exam Vital Signs Vital Signs - 24 hr 06/15/21 10:06 06/15/21 10:10 06/15/21 10:45 Temperature 36.7 C Temperature Source Temporal Artery Scan Pulse Rate 63 54 L Pulse Rate [Finger] Pulse Rate from SpO2 Sensor Pulse Rhythm [Finger] Respiratory Rate 16 22 Respiratory Effort / Characteristics Respiratory Depth Blood Pressure 139/71 Blood Pressure [Left Arm] Blood Pressure Mean 93 Blood Pressure Mean [Left Arm] Pulse Oximetry 94 96 Oxygen Delivery Method Room Air Room Air Sepsis Recent Fever Within 48 Hours No Sepsis New/Unexplained Change in Mental Status No Sepsis Action Taken by Nursing No Action Required 06/15/21 10:46 06/15/21 11:00 06/15/21 11:30 Temperature Temperature Source Pulse Rate 69 53 L 56 L Pulse Rate [Finger] Pulse Rate from SpO2 Sensor 57 L Pulse Rhythm [Finger] Respiratory Rate 18 25 H 24 Respiratory Effort / Characteristics Respiratory Depth Blood Pressure 180/80 H Blood Pressure [Left Arm] Blood Pressure Mean 113 Blood Pressure Mean [Left Arm] Pulse Oximetry 98 98 Oxygen Delivery Method Room Air Sepsis Recent Fever Within 48 Hours Sepsis New/Unexplained Change in Mental Status Sepsis Action Taken by Nursing 06/15/21 12:00 06/15/21 12:06 06/15/21 12:30 Temperature Temperature Source Pulse Rate 48 L 54 L Pulse Rate [Finger] 62 Pulse Rate from SpO2 Sensor 49 L 55 L Pulse Rhythm [Finger] Regular Respiratory Rate 19 18 19 Respiratory Effort / Characteristics Non-Labored Respiratory Depth Normal Blood Pressure 178/71 H Blood Pressure [Left Arm] 193/82 H Blood Pressure Mean 106 Blood Pressure Mean [Left Arm] 119 Pulse Oximetry 95 96 97 Oxygen Delivery Method Room Air Sepsis Recent Fever Within 48 Hours Sepsis New/Unexplained Change in Mental Status Sepsis Action Taken by Nursing 06/15/21 13:00 06/15/21 13:30 06/15/21 14:00 Temperature Temperature Source Pulse Rate 61 62 Pulse Rate [Finger] Pulse Rate from SpO2 Sensor Pulse Rhythm [Finger] Respiratory Rate 20 Respiratory Effort / Characteristics Non-Labored Respiratory Depth Normal Blood Pressure Blood Pressure [Left Arm] Blood Pressure Mean Blood Pressure Mean [Left Arm] Pulse Oximetry 97 96 Oxygen Delivery Method Room Air Sepsis Recent Fever Within 48 Hours Sepsis New/Unexplained Change in Mental Status Sepsis Action Taken by Nursing General: Well developed well nourished older female who appears in no acute distress, breathing comfortably on room air. Normal speech HEENT: Normal cephalic atraumatic. Pupils are equal round and reactive to light. Sclera anicteric extraocular movements are intact. Oropharynx is pink with moist mucous membranes. No swelling of the mouth lips or tongue. Neck: Supple with a midline trachea. No meningeal signs or stiffness, no JVD or bruits. No Stridor. Chest: Clear to auscultation bilaterally. No wheezes or rhonchi. No increased work of breathing. Heart: Regular rate and rhythm without murmurs or gallops. Abdomen: Soft nontender, nondistended without rebound guarding or rigidity. Extremities: No cyanosis clubbing or edema. No calf tenderness or assymetry Spine/Back. Non tender to palpation. No CVA tenderness Skin: Good turgor without rashes. Neurologic exam: Cranial nerves two through 12 are intact. Motor and sensation are intact and symmetrical throughout. No tremor Medical Decision Making Differential Diagnosis Vertigo, cardiac arrhythmia, bradycardia, electrolyte or metabolic abnormality, intracranial process, CVA, anemia Medical Records Attestation: I reviewed the patient's medical records. Home Medications Current Medication List: was personally reviewed by me Laboratory Data Attestation: I reviewed the patient's lab results. Result diagrams: 06/15/21 11:05 06/15/21 11:05 Lab Results 06/15/21 06/15/21 06/15/21 Range/Units 11:05 11:05 11:05 WBC 9.47 (4.8-10.8) K/uL RBC 5.05 (4.2-5.4) M/uL Hgb 14.7 (12.0-16.0) g/dL Hct 45.9 (37-47) % MCV 90.9 (80-100) fL MCH 29.1 (25-34) pg MCHC 32.0 (32-36) g/dL RDW Std Deviation 48.8 H (36.4-46.3) fL RDW Coeff of Brenna 14.5 (11.5-14.5) % Plt Count 216 (130-400) K/uL MPV 10.0 (7.4-10.4) fL Immature Gran % (Auto) 0.2 % Neut % (Auto) 67.5 % Lymph % (Auto) 21.3 % Clay % (Auto) 9.1 % Eos % (Auto) 1.7 % Baso % (Auto) 0.2 % Neut # (Auto) 6.39 (1.4-6.5) K/uL Lymph # (Auto) 2.02 (1.2-3.4) K/uL Clay # (Auto) 0.86 H (0.11-0.59) K/uL Eos # (Auto) 0.16 (0-0.5) K/uL Baso # (Auto) 0.02 (0-0.2) K/uL Immature Gran # (Auto) 0.02 (0.00-0.02) K/uL PT 30.2 H (9.0-12.0) Seconds INR 3.0 H (0.9-1.1) APTT 40.4 H (21.0-31.0) Seconds PTT Ratio 1.5 Sodium 142 (136-145) mmol/L Potassium 3.9 (3.5-5.1) mmol/L Chloride 106 (98-107) mmol/L Carbon Dioxide 30 (21-32) mmol/L Anion Gap 6 (3-11) BUN 15 (6-23) mg/dl Creatinine 0.79 (0.6-1.2) mg/dl Est Cr Clr Drug Dosing 49.7 ml/min Est GFR ( Amer) 77.5 ml/min Est GFR (Non-Af Amer) 66.8 ml/min BUN/Creatinine Ratio 19.0 (10-20) Glucose 76 (70-99(Fasting)) mg/dl Calcium 9.6 (8.5-10.1) mg/dl Magnesium 2.1 (1.7-2.4) mg/dl Total Bilirubin 1.2 H (0.2-1.0) mg/dl AST 21 (13-39) U/L ALT 21 (7-52) U/L Alkaline Phosphatase 105 H (34-104) U/L Troponin I High Sens (0-14) pg/ml Total Protein 7.1 (6.0-8.3) gm/dl Albumin 3.9 (3.4-5.0) gm/dl Globulin 3.2 (2.5-4.0) gm/dl Albumin/Globulin Ratio 1.2 (0.9-2) TSH (0.300-4.500) uIu/ml Urine Color Urine Appearance (Clear) Urine pH (4.5-7.5) Ur Specific [place] (1.000-1.030) Urine Protein (Negative) Urine Glucose (UA) (Negative) Urine Ketones (Negative) Urine Blood (Negative) Urine Nitrite (Negative) Urine Bilirubin (Negative) Urine Urobilinogen (Negative) Ur Leukocyte Esterase (Negative) Urine WBC (Auto) (0-5) /hpf Urine RBC (Auto) (0-4) /hpf U Hyaline Cast (Auto) (0-5) /lpf U Epithel Cells (Auto) (0-5) /lpf Urine Bacteria (Auto) (Negative) SARS-CoV-2, RNA, NAAT (NEGATIVE) 06/15/21 06/15/21 06/15/21 Range/Units 11:05 11:05 11:26 WBC (4.8-10.8) K/uL RBC (4.2-5.4) M/uL Hgb (12.0-16.0) g/dL Hct (37-47) % MCV (80-100) fL MCH (25-34) pg MCHC (32-36) g/dL RDW Std Deviation (36.4-46.3) fL RDW Coeff of Brenna (11.5-14.5) % Plt Count (130-400) K/uL MPV (7.4-10.4) fL Immature Gran % (Auto) % Neut % (Auto) % Lymph % (Auto) % Clay % (Auto) % Eos % (Auto) % Baso % (Auto) % Neut # (Auto) (1.4-6.5) K/uL Lymph # (Auto) (1.2-3.4) K/uL [place] # (Auto) (0.11-0.59) K/uL Eos # (Auto) (0-0.5) K/uL Baso # (Auto) (0-0.2) K/uL Immature Gran # (Auto) (0.00-0.02) K/uL PT (9.0-12.0) Seconds INR (0.9-1.1) APTT (21.0-31.0) Seconds PTT Ratio Sodium (136-145) mmol/L Potassium (3.5-5.1) mmol/L Chloride (98-107) mmol/L Carbon Dioxide (21-32) mmol/L Anion Gap (3-11) BUN (6-23) mg/dl Creatinine (0.6-1.2) mg/dl Est Cr Clr Drug Dosing ml/min Est GFR ( Amer) ml/min Est GFR (Non-Af Amer) ml/min BUN/Creatinine Ratio (10-20) Glucose (70-99(Fasting)) mg/dl Calcium (8.5-10.1) mg/dl Magnesium (1.7-2.4) mg/dl Total Bilirubin (0.2-1.0) mg/dl AST (13-39) U/L ALT (7-52) U/L Alkaline Phosphatase (34-104) U/L Troponin I High Sens 8.9 (0-14) pg/ml Total Protein (6.0-8.3) gm/dl Albumin (3.4-5.0) gm/dl Globulin (2.5-4.0) gm/dl Albumin/Globulin Ratio (0.9-2) TSH 3.632 (0.300-4.500) uIu/ml Urine Color Yellow Urine Appearance Clear (Clear) Urine pH 7.5 (4.5-7.5) Ur Specific [place] 1.006 (1.000-1.030) Urine Protein Negative (Negative) Urine Glucose (UA) Negative (Negative) Urine Ketones Negative (Negative) Urine Blood Negative (Negative) Urine Nitrite Negative (Negative) Urine Bilirubin Negative (Negative) Urine Urobilinogen Negative (Negative) Ur Leukocyte Esterase Trace H (Negative) Urine WBC (Auto) 1-5 (0-5) /hpf Urine RBC (Auto) 0-4 (0-4) /hpf U Hyaline Cast (Auto) 1-5 (0-5) /lpf U Epithel Cells (Auto) 20-30 H (0-5) /lpf Urine Bacteria (Auto) Negative (Negative) SARS-CoV-2, RNA, NAAT (NEGATIVE) 06/15/21 Range/Units Unknown WBC (4.8-10.8) K/uL RBC (4.2-5.4) M/uL Hgb (12.0-16.0) g/dL Hct (37-47) % MCV (80-100) fL MCH (25-34) pg MCHC (32-36) g/dL RDW Std Deviation (36.4-46.3) fL RDW Coeff of Brenna (11.5-14.5) % Plt Count (130-400) K/uL MPV (7.4-10.4) fL Immature Gran % (Auto) % Neut % (Auto) % Lymph % (Auto) % Clay % (Auto) % Eos % (Auto) % Baso % (Auto) % Neut # (Auto) (1.4-6.5) K/uL Lymph # (Auto) (1.2-3.4) K/uL [place] # (Auto) (0.11-0.59) K/uL Eos # (Auto) (0-0.5) K/uL Baso # (Auto) (0-0.2) K/uL Immature Gran # (Auto) (0.00-0.02) K/uL PT (9.0-12.0) Seconds INR (0.9-1.1) APTT (21.0-31.0) Seconds PTT Ratio Sodium (136-145) mmol/L Potassium (3.5-5.1) mmol/L Chloride (98-107) mmol/L Carbon Dioxide (21-32) mmol/L Anion Gap (3-11) BUN (6-23) mg/dl Creatinine (0.6-1.2) mg/dl Est Cr Clr Drug Dosing ml/min Est GFR ( Amer) ml/min Est GFR (Non-Af Amer) ml/min BUN/Creatinine Ratio (10-20) Glucose (70-99(Fasting)) mg/dl Calcium (8.5-10.1) mg/dl Magnesium (1.7-2.4) mg/dl Total Bilirubin (0.2-1.0) mg/dl AST (13-39) U/L ALT (7-52) U/L Alkaline Phosphatase (34-104) U/L Troponin I High Sens (0-14) pg/ml Total Protein (6.0-8.3) gm/dl Albumin (3.4-5.0) gm/dl Globulin (2.5-4.0) gm/dl Albumin/Globulin Ratio (0.9-2) TSH (0.300-4.500) uIu/ml Urine Color Urine Appearance (Clear) Urine pH (4.5-7.5) Ur Specific [place] (1.000-1.030) Urine Protein (Negative) Urine Glucose (UA) (Negative) Urine Ketones (Negative) Urine Blood (Negative) Urine Nitrite (Negative) Urine Bilirubin (Negative) Urine Urobilinogen (Negative) Ur Leukocyte Esterase (Negative) Urine WBC (Auto) (0-5) /hpf Urine RBC (Auto) (0-4) /hpf U Hyaline Cast (Auto) (0-5) /lpf U Epithel Cells (Auto) (0-5) /lpf Urine Bacteria (Auto) (Negative) SARS-CoV-2, RNA, NAAT NEGATIVE (NEGATIVE) Imaging Data Attestation: I personally reviewed and interpreted this imaging study as fol lows: My Impression: Chest x-rayacute infiltrate, failure, pneumothorax seen Head CTno hemorrhage or mass-effect seen Radiologist's Impression: Chest X-Ray 06/15/21 10:46 XR chest 1V portable HISTORY: 86 years-old Female weakness acute weakness COMPARISON: Chest radiograph 01/29/2020 TECHNIQUE: Portable AP view of the chest FINDINGS: The cardiac silhouette is enlarged. Atherosclerosis of the thoracic aorta. No pneumothorax, pleural effusion, airspace consolidation or overt pulmonary edema. The bones of the chest appear grossly intact. IMPRESSION: Cardiomegaly without acute process. ACT 112: Negative or not required by law. The above report was generated using voice recognition software. It may contain grammatical, syntax or spelling errors. Electronically signed by: Cristian Montanez M.D. 06/15/2021 11:[address] 06/15/21 10:47 CT head/brain wo con CLINICAL HISTORY: 86 years-old Female with weakness. Acute weakness with dizziness TECHNIQUE: Multiple axial CT images of the head were obtained without contrast. A dose lowering technique was utilized adhering to the principles of ALARA. CT DOSE: 614.27 mGy.cm COMPARISON: Head CT 01/01/2020. FINDINGS: No acute intracranial hemorrhage, midline shift, intra-axial mass, hydrocephalus, territorial ischemia or abnormal extra-axial collection. 7 mm falx cerebri lipoma. Age-related involutional changes. Senescent calcifications of the basal ganglia with cerebral vascular calcifications. White matter hypodensities suggest chronic microvascular ischemic disease. The calvarium is intact. 1.9 x 0.4 cm right forehead scalp contusion. Prior bilateral lens repair. The paranasal sinuses, mastoid air cells, and middle ear cavities are clear. IMPRESSION: No acute intracranial abnormality. ACT 112: Negative or not required by law. The above report was generated using voice recognition software. It may contain grammatical, syntax or spelling errors. Electronically signed by: Cristian Montanez M.D. 06/15/2021 11:22 AM ECG Data Attestation: I personally reviewed and interpreted this ECG as follows: Indication: + bradycardia and + weakness Rate (beats per minute): 49 Rhythm: + sinus bradycardia ECG Intervals/blocks: + Normal QRS, + Normal QT and + Normal GA ECG [place]: + Normal ECG ST segments: + Normal ST segments ECG Findings: no PACs or no PVCs Comparison ECG Date: from (01/29/20) Change: the following changes noted (PACs in are now absent) MDM Narrative This patient comes in as described above. She was placed on a lunchroom monitor room C8. She is here for treatment evaluation of dizziness. She denies that she was having spinning or vertigo. She has no neurologic deficits. She has had no chest pain or shortness of breath. she has stable vital signs with exception of her heart rate is on the low side. It sounds like they are evaluating for possible pacemaker. She is been normotensive with this thus far IV access established. he was hydrated with IV normal saline bolus. Multiple blood test was obtained I did do a CAT scan of her head. She was reassessed frequently. COVID testing was negative. Her initial troponin is not elevated. She has no signal electrolyte or metabolic abnormality. 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 Arreguin has been talking about putting a pacemaker in her for quite some time. Given her history I do think she needs to be admitted/observed for cardiac evaluation and work-up. Continuous cardiac monitoring: Orders placed in EMR for continuous cardiac monitoring. 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, Dizziness, Weakness, Lab test negative for COVID-19 virus Forms Stand Alone Forms: [facility] Prescriptions Prescriptions: No Action atorvastatin 10 mg tablet 10 mg PO QAM RF: 0 warfarin 5 mg tablet 5 mg PO QPM RF: 0 omeprazole 20 mg capsule,delayed release(DR/EC) 20 mg PO QAM RF: 0 lisinopril 5 mg tablet 5 mg PO QAM RF: 0 hydrochlorothiazide 25 mg tablet 12.5 mg PO QAM RF: 0 sotalol 80 mg tablet 120 mg PO DAILY RF: 0 acetaminophen [Tylenol Extra Strength] 500 mg tablet 500 mg PO Q4H PRN (Reason: Fever Or Pain) RF: 0 Referrals Referrals: Pam Richardson DO [Primary Care Provider] -
[2021-06-15 11:22] LABS: Basophils # (auto) 0.02 K/uL (0-0.2); Basophils % (auto) 0.2 %; Eosinophils # (auto) 0.16 K/uL (0-0.5); Eosinophils % (auto) 1.7 %; Hematocrit (blood only) 45.9 % (37-47); Hemoglobin 14.7 g/dL (12.0-16.0); Immature Granulocytes # (auto) 0.02 K/uL (0.00-0.02); Immature Granulocytes % (auto) 0.2 %; Lymphocytes # (auto) 2.02 K/uL (1.2-3.4); Lymphocytes % (auto) 21.3 %; Mean Corpuscular Hemoglobin 29.1 pg (25-34); Mean Corpuscular Volume 90.9 fL (80-100); Monocytes # (auto) 0.86 K/uL (0.11-0.59); Monocytes % (auto) 9.1 %; Neutrophils # (auto) 6.39 K/uL (1.4-6.5); Neutrophils % (auto) 67.5 %; Platelet Count 216 K/uL (130-400); RDW Coefficient of Variation 14.5 % (11.5-14.5); RDW Standard Deviation 48.8 fL (36.4-46.3); Red Blood Count 5.05 M/uL (4.2-5.4); White Blood Count 9.47 K/uL (4.8-10.8)
--- NOTE | 2021-06-15 11:24 | CT Scan Report ---
CT head/brain wo con CLINICAL HISTORY: 86 years-old Female with weakness. Acute weakness with dizziness TECHNIQUE: Multiple axial CT images of the head were obtained without contrast. A dose lowering tech nique was utilized adhering to the principles of ALARA. CT DOSE: 614.27 mGy.cm COMPARISON: Head CT 01/01/2020. FINDINGS: No acute intracranial hemorrhage, midline shift, intra-axial mass, hydrocephalus, territorial ischemi a or abnormal extra-axial collection. 7 mm falx cerebri lipoma. Age-related involutional changes. Sen escent calcifications of the basal ganglia with cerebral vascular calcifications. White matter hypode nsities suggest chronic microvascular ischemic disease. The calvarium is intact. 1.9 x 0.4 cm right forehead scalp contusion. Prior bilateral lens repair. Th e paranasal sinuses, mastoid air cells, and middle ear cavities are clear. IMPRESSION: No acute intracranial abnormality. ACT 112: Negative or not required by law. The above report was generated using voice recognition software. It may contain grammatical, syntax o r spelling errors. Electronically signed by: Cristian Montanez M.D. 06/15/2021 11:22 AM
[2021-06-15 11:32] LABS: Partial Thromboplastin Ratio 1.5; Partial Thromboplastin Time 40.4 Seconds (21.0-31.0); Prothrombin Time 30.2 Seconds (9.0-12.0)
--- NOTE | 2021-06-15 11:50 | XRay Report ---
XR chest 1V portable HISTORY: 86 years-old Female weakness acute weakness COMPARISON: Chest radiograph 01/29/2020 TECHNIQUE: Portable AP view of the chest FINDINGS: The cardiac silhouette is enlarged. Atherosclerosis of the thoracic aorta. No pneumothorax, pleural e ffusion, airspace consolidation or overt pulmonary edema. The bones of the chest appear grossly intac t. IMPRESSION: Cardiomegaly without acute process. ACT 112: Negative or not required by law. The above report was generated using voice recognition software. It may contain grammatical, syntax o r spelling errors. Electronically signed by: Cristian Montanez M.D. 06/15/2021 11:49 AM
[2021-06-15 11:54] LABS: Albumin Globulin Ratio 1.2 (0.9-2); Albumin Level 3.9 gm/dl (3.4-5.0); Bilirubin,Total 1.2 mg/dl (0.2-1.0); Calcium 9.6 mg/dl (8.5-10.1); Creatinine Clr Calc Pharmacy 49.7 ml/min; Est GFR (African American) 77.5 ml/min; Est GFR (Non-African American) 66.8 ml/min; Globulin 3.2 gm/dl (2.5-4.0); Magnesium 2.1 mg/dl (1.7-2.4); Potassium 3.9 mmol/L (3.5-5.1); Total Protein 7.1 gm/dl (6.0-8.3)
[2021-06-15 11:56] LABS: Appearance Urine Clear (Clear); Bacteria Urine Automated Negative (Negative); Bilirubin Urine Negative (Negative); Blood Urine Negative (Negative); Color Urine Yellow; Epithelial Cell Urine Auto 20-30 /lpf (0-5); Glucose Urine UA Negative (Negative); Ketones Urine Negative (Negative); Leukocyte Esterase Urine Trace (Negative); Nitrite Urine Negative (Negative); Protein Urine Negative (Negative); RBC Urine Automated 0-4 /hpf (0-4); Specific Gravity Urine 1.006 (1.000-1.030); Urobilinogen Urine Negative (Negative); pH Urine 7.5 (4.5-7.5)
[2021-06-15] MEDS ORDERED: PROMETHAZINE HCL 6.25 MG in SODIUM CHLORIDE 0.9% 50 ML IV PRN (16:56)
[2021-06-15] MEDS ORDERED: ACETAMINOPHEN 500 MG TAB PO PRN (16:56)
--- NOTE | 2021-06-15 19:38 | History & Physical Report ---
Date of Service June 15, 2021 Assessment & Plan (1) Dizziness: Plan: 86-year-old female with history of hypertension, paroxysmal atrial fibrillation with tachybradycardia syndrome atrial flutter, supraventricular tachycardia, mitral valve regurgitation CKD stage III resenting with lightheadedness/dizziness. Dizziness in the setting of paroxysmal atrial fibrillation, tachybradycardia syndrome EKG showing sinus bradycardia at 49 Current heart rate in the 50s Hold sotalol INR 3.0, hold Coumadin Cardiology service consulted Hypertension Continue usual home lisinopril, HCTZ CKD stage III Stable Disposition Lives at home Anticipate discharge to home medically stable PT OT evaluation plan of care discussed with patient in detail and at length all questions answered she is understanding, agreeable, comfortable with the plan of care Admission and Anticipated Discharge Date Admission Date: June 15, 2021 History of Present Illness Primary Care Provider: Pam Richardson DO 86-year-old female with history of hypertension, paroxysmal atrial fibrillation with tachybradycardia syndrome atrial flutter, supraventricular tachycardia, mitral valve regurgitation CKD stage III resenting with lightheadedness/dizziness. Patient reports several day history of lightheadedness/dizziness not related to head position, occurs at rest and also with ambulation Denies presyncope or syncope episodes. No chest pain, shortness of breath, palpitations, dizziness. Also reports several day history of runny nose, some sore throat and ear pain. At the ER, EKG showing sinus bradycardia, heart rate 49. CT head: No acute CVA. On exam, patient seen resting in bed, comfortable, no symptoms. Allergies Allergy/AdvReac Type Severity Reaction Status Date / Time rofecoxib Allergy Unknown Face fiery Verified 05/16/20 22:49 red simvastatin Allergy Unknown Muscle Verified 05/16/20 22:49 aches. Sulfa (Sulfonamide Allergy Unknown Hives Verified 05/16/20 22:49 Antibiotics) tetracycline Allergy Unknown Hives Verified 05/16/20 22:49 Home Medications Medication Instructions Recorded Confirmed Type atorvastatin 10 mg tablet 10 mg PO QAM 07/26/18 06/15/21 History hydrochlorothiazide 25 mg tablet 12.5 mg PO QAM 07/26/18 06/15/21 History lisinopril 5 mg tablet 5 mg PO QAM 07/26/18 06/15/21 History omeprazole 20 mg capsule,delayed 20 mg PO QAM 07/26/18 06/15/21 History release warfarin 5 mg tablet 5 mg PO QPM 07/26/18 06/15/21 History acetaminophen 500 mg tablet 500 mg PO Q4H PRN 01/29/20 06/15/21 History (Tylenol Extra Strength) sotalol 80 mg tablet 120 mg PO DAILY 01/29/20 06/15/21 History Past Med/Surg History Medical History (Updated 06/15/21 @ 15:51 by Alfonso Logan MD) A-fib High blood pressure Social History Smoking Status: Never smoker Second Hand Exposure: No; Hx Alcohol Use: No Hx Substance Use: No Preferred Language: [place] Communication Ability: Effective Cook Apprentice Required: No Beliefs That Will Affect Care: None marital status: Current Living Situation: Family Current Living Situation Comment: son and daughter in law Other Information That Helps Us Care for You: No Feels Safe at Home: Yes Safety Concerns: Feels Safe At This Time Assistive Devices: Walker Review of Systems Review of Systems: all noted and negative except for above Results & Data Results & Data ([facility]) Vital Signs (Past 12 Hours) Vital Signs Temp Pulse Pulse Resp BP BP Pulse Ox 06/15/21 19:18 36.8 C 60 18 149/75 H 94 06/15/21 16:57 36.7 C 59 L 18 168/90 H 95 06/15/21 13:30 62 96 06/15/21 13:00 61 20 97 06/15/21 12:30 54 L 19 178/71 H 97 06/15/21 12:06 62 18 193/82 H 96 06/15/21 12:00 48 L 19 95 06/15/21 11:30 56 L 24 180/80 H 98 06/15/21 11:00 53 L 25 H 06/15/21 10:46 69 18 98 06/15/21 10:45 54 L 22 06/15/21 10:10 36.7 C 63 16 139/71 96 06/15/21 10:06 94 all noted and reviewed including below Code Status & VTE Plan VTE Prophylaxis Plan VTE Prophylaxis will be ordered: Yes
[2021-06-16] MEDS: MELATONIN 3 MG TAB PO PRN ×2 (03:51→21:18)
[2021-06-16 06:23] LABS: Basophils # (auto) 0.02 K/uL (0-0.2); Basophils % (auto) 0.3 %; Eosinophils # (auto) 0.13 K/uL (0-0.5); Eosinophils % (auto) 1.8 %; Hematocrit (blood only) 43.8 % (37-47); Hemoglobin 13.9 g/dL (12.0-16.0); Immature Granulocytes # (auto) 0.02 K/uL (0.00-0.02); Immature Granulocytes % (auto) 0.3 %; Mean Corpuscular Hemoglobin 28.2 pg (25-34); Mean Corpuscular Hgb Conc 31.7 g/dL (32-36); Mean Corpuscular Volume 88.8 fL (80-100); Mean Platelet Volume 9.8 fL (7.4-10.4); Monocytes # (auto) 0.79 K/uL (0.11-0.59); Monocytes % (auto) 11.2 %; Neutrophils # (auto) 4.18 K/uL (1.4-6.5); Neutrophils % (auto) 59.4 %; Platelet Count 180 K/uL (130-400); RDW Coefficient of Variation 14.6 % (11.5-14.5); RDW Standard Deviation 47.3 fL (36.4-46.3); Red Blood Count 4.93 M/uL (4.2-5.4); White Blood Count 7.04 K/uL (4.8-10.8)
[2021-06-16 06:54] LABS: BUN Creatinine Ratio 21.3 (10-20); Calcium 9.4 mg/dl (8.5-10.1); Creatinine Clr Calc Pharmacy 56.7 ml/min; Est GFR (African American) 82.5 ml/min; Est GFR (Non-African American) 71.2 ml/min; Potassium 3.8 mmol/L (3.5-5.1)
[2021-06-16 07:35] LABS: INR 2.3 (0.9-1.1); Prothrombin Time 23.5 Seconds (9.0-12.0)
[2021-06-16] MEDS: hydroCHLOROthiazide 25 MG TAB PO SCH (08:22)
[2021-06-16] MEDS: ATORVASTATIN 10 MG TAB PO SCH (08:22)
[2021-06-16] MEDS: PANTOprazole 40 MG TAB PO SCH (08:23)
[2021-06-16] MEDS: AMOXICILLIN/CLAVULANATE 875 MG TAB PO SCH ×2 (08:58→17:21)
[2021-06-16] MEDS ORDERED: lisinopril 5 MG TAB PO SCH (09:00)
--- NOTE | 2021-06-16 11:10 | Cardiology Consultation ---
Date of Consultation June 16, 2021 Assessment & Plan (1) Dizziness: (2) Paroxysmal atrial fibrillation: (3) H/O tachycardia-bradycardia syndrome: (4) HTN (hypertension): Patient is an 86-year-old female with paroxysmal atrial fibrillation on chronic antiarrhythmic therapy with sotalol hypertension, borderline tachybradycardia syndrome She presents with symptoms of dizziness and lightheadedness that began with sore throat and ear pain. Rhythm since admission demonstrates sinus and sinus bradycardia profound bradycardia or pauses. Times of dizziness appear to supersede rhythm findings. Plan: Agree with antibiotic therapy Resume sotalol at reduced dose of 40 mg twice per day and maintain telemetry Increase lisinopril to 5 mg twice per day for hypertension Potassium 10 mg/day for hypokalemia Continue to hold warfarin. If significant change in rhythm or bradycardia arrhythmias develop on current dosing of sotalol patient will likely warrant pacemaker insertion possibly this admission History of Present Illness Reason for Consultation: Dizziness, sinus bradycardia Requesting Physician: Zaid Hester MD Attending Physician: Zaid Hester MD History of Present Illness Patient is an 86-year-old female with ongoing issues which include 1. Paroxysmal atrial fibrillation controlled in sinus rhythm with sotalol 80 mg a.m. 40 mg p.m. 2. Borderline tachybradycardia syndrome 3. Hypertension 4. Dyslipidemia 5. Mild mitral insufficiency 6. CKD stage III Patient presents now noting symptoms of dizziness and lightheadedness that began with symptoms of pressure in the mid right face jaw and ear with sore throat and rhinorrhea. She noted no sense of tachypalpitations. Feels chilled and possible cool at times no distinct fevers. No syncope or near syncope. No chest pain or shortness of breath. No orthopnea or worsening peripheral edema. Appetite and weight are generally stable. Patient presented for further evaluation given past history of borderline tachybradycardia syndrome and suggestion of possible need for pacemaker in future Patient still with mild dizziness this morning despite heart rate in 50s. No arrhythmias on telemetry Allergies Allergy/AdvReac Type Severity Reaction Status Date / Time rofecoxib Allergy Unknown Face fiery Verified 05/16/20 22:49 red simvastatin Allergy Unknown Muscle Verified 05/16/20 22:49 aches. Sulfa (Sulfonamide Allergy Unknown Hives Verified 05/16/20 22:49 Antibiotics) tetracycline Allergy Unknown Hives Verified 05/16/20 22:49 Home Medications Medication Instructions Recorded Confirmed Type atorvastatin 10 mg tablet 10 mg PO QAM 07/26/18 06/15/21 History hydrochlorothiazide 25 mg tablet 12.5 mg PO QAM 07/26/18 06/15/21 History lisinopril 5 mg tablet 5 mg PO QAM 07/26/18 06/15/21 History omeprazole 20 mg capsule,delayed 20 mg PO QAM 07/26/18 06/15/21 History release warfarin 5 mg tablet 5 mg PO QPM 07/26/18 06/15/21 History acetaminophen 500 mg tablet 500 mg PO Q4H PRN 01/29/20 06/15/21 History (Tylenol Extra Strength) sotalol 80 mg tablet 120 mg PO DAILY 01/29/20 06/15/21 History Patient History Medical History A-fib High blood pressure Social History Smoking Status: Never smoker Second Hand Exposure: No; Hx Alcohol Use: No Hx Substance Use: No Preferred Language: Maltese Communication Ability: Effective Financial Sales Associate Required: No Beliefs That Will Affect Care: None marital status: Current Living Situation: Family Current Living Situation Comment: son and daughter in law Other Information That Helps Us Care for You: No Feels Safe at Home: Yes Safety Concerns: Feels Safe At This Time Assistive Devices: Walker Review of Systems Review of Systems: All systems reviewed & are unremarkable except as noted in HPI & below Physical Exam Constitutional: WD/WN, vitals as above Eyes: PERRL, conjunctivae normal, anicteric sclerae ENMT: external ear and nose normal, oropharynx normal Neck: trachea midline, no thyromegaly Respiratory: normal respiratory effort, lungs clear to auscultation Cardiovascular: Rate/Rhythm: regular rate, regular rhythm and + bradycardic Heart Sounds: normal S1 and normal S2; no gallop and no murmur Palpation: normal PMI Vessels: normal carotid upstroke and radial pulses present; no JVD and no carotid bruit Extremities: no edema Gastrointestinal (Abdomen): normal bowel sounds, soft, nontender, no hepatosplenomegaly Musculoskeletal: no cyanosis or clubbing, extremities motor strength 5/5 Skin: no rashes, warm and dry Neurologic: PERRL, EOMI, accommodation nl, no face palsy, no dysarthria Psychiatric: A+Ox3, euthymic affect Results & Data ([facility]) Vital Signs (Past 12 Hours) Vital Signs Temp Pulse Resp BP Pulse Ox 06/16/21 08:02 36.6 C 61 18 161/75 H 96 06/16/21 03:00 36.9 C 69 16 152/71 H 96 06/16/21 00:16 36.6 C 57 L 18 146/70 H 93 06/15/21 23:21 36.6 C 57 L 18 146/70 H 93 Laboratory Results Laboratory Results - last 24 hr 06/15/21 06/15/21 06/15/21 11:05 11:05 11:05 WBC 9.47 RBC 5.05 Hgb 14.7 Hct 45.9 MCV 90.9 MCH 29.1 MCHC 32.0 RDW Std Deviation 48.8 H RDW Coeff of Brenna 14.5 Plt Count 216 MPV 10.0 Immature Gran % (Auto) 0.2 Neut % (Auto) 67.5 Lymph % (Auto) 21.3 Borden % (Auto) 9.1 Eos % (Auto) 1.7 Baso % (Auto) 0.2 Neut # (Auto) 6.39 Lymph # (Auto) 2.02 Borden # (Auto) 0.86 H Eos # (Auto) 0.16 Baso # (Auto) 0.02 Immature Gran # (Auto) 0.02 PT 30.2 H INR 3.0 H APTT 40.4 H PTT Ratio 1.5 Sodium 142 Potassium 3.9 Chloride 106 Carbon Dioxide 30 Anion Gap 6 BUN 15 Creatinine 0.79 Est Cr Clr Drug Dosing 49.7 Est GFR ( Amer) 77.5 Est GFR (Non-Af Amer) 66.8 BUN/Creatinine Ratio 19.0 Glucose 76 Calcium 9.6 Magnesium 2.1 Total Bilirubin 1.2 H AST 21 ALT 21 Alkaline Phosphatase 105 H Troponin I High Sens Total Protein 7.1 Albumin 3.9 Globulin 3.2 Albumin/Globulin Ratio 1.2 TSH Urine Color Urine Appearance Urine pH Ur Specific Burkett Urine Protein Urine Glucose (UA) Urine Ketones Urine Blood Urine Nitrite Urine Bilirubin Urine Urobilinogen Ur Leukocyte Esterase Urine WBC (Auto) Urine RBC (Auto) U Hyaline Cast (Auto) U Epithel Cells (Auto) Urine Bacteria (Auto) SARS-CoV-2, RNA, NAAT 06/15/21 06/15/21 06/15/21 11:05 11:05 11:26 WBC RBC Hgb Hct MCV MCH MCHC RDW Std Deviation RDW Coeff of Brenna Plt Count MPV Immature Gran % (Auto) Neut % (Auto) Lymph % (Auto) Borden % (Auto) Eos % (Auto) Baso % (Auto) Neut # (Auto) Lymph # (Auto) Borden # (Auto) Eos # (Auto) Baso # (Auto) Immature Gran # (Auto) PT INR APTT PTT Ratio Sodium Potassium Chloride Carbon Dioxide Anion Gap BUN Creatinine Est Cr Clr Drug Dosing Est GFR ( Amer) Est GFR (Non-Af Amer) BUN/Creatinine Ratio Glucose Calcium Magnesium Total Bilirubin AST ALT Alkaline Phosphatase Troponin I High Sens 8.9 Total Protein Albumin Globulin Albumin/Globulin Ratio TSH 3.632 Urine Color Yellow Urine Appearance Clear Urine pH 7.5 Ur Specific Burkett 1.006 Urine Protein Negative Urine Glucose (UA) Negative Urine Ketones Negative Urine Blood Negative Urine Nitrite Negative Urine Bilirubin Negative Urine Urobilinogen Negative Ur Leukocyte Esterase Trace H Urine WBC (Auto) 1-5 Urine RBC (Auto) 0-4 U Hyaline Cast (Auto) 1-5 U Epithel Cells (Auto) 20-30 H Urine Bacteria (Auto) Negative SARS-CoV-2, RNA, NAAT 06/15/21 06/16/21 06/16/21 Unknown 05:43 05:43 WBC 7.04 RBC 4.93 Hgb 13.9 Hct 43.8 MCV 88.8 MCH 28.2 MCHC 31.7 L RDW Std Deviation 47.3 H RDW Coeff of Brenna 14.6 H Plt Count 180 MPV 9.8 Immature Gran % (Auto) 0.3 Neut % (Auto) 59.4 Lymph % (Auto) 27.0 Borden % (Auto) 11.2 Eos % (Auto) 1.8 Baso % (Auto) 0.3 Neut # (Auto) 4.18 Lymph # (Auto) 1.90 Borden # (Auto) 0.79 H Eos # (Auto) 0.13 Baso # (Auto) 0.02 Immature Gran # (Auto) 0.02 PT 23.5 H INR 2.3 H APTT PTT Ratio Sodium Potassium Chloride Carbon Dioxide Anion Gap BUN Creatinine Est Cr Clr Drug Dosing Est GFR ( Amer) Est GFR (Non-Af Amer) BUN/Creatinine Ratio Glucose Calcium Magnesium Total Bilirubin AST ALT Alkaline Phosphatase Troponin I High Sens Total Protein Albumin Globulin Albumin/Globulin Ratio TSH Urine Color Urine Appearance Urine pH Ur Specific Burkett Urine Protein Urine Glucose (UA) Urine Ketones Urine Blood Urine Nitrite Urine Bilirubin Urine Urobilinogen Ur Leukocyte Esterase Urine WBC (Auto) Urine RBC (Auto) U Hyaline Cast (Auto) U Epithel Cells (Auto) Urine Bacteria (Auto) SARS-CoV-2, RNA, NAAT NEGATIVE 06/16/21 05:43 WBC RBC Hgb Hct MCV MCH MCHC RDW Std Deviation RDW Coeff of Brenna Plt Count MPV Immature Gran % (Auto) Neut % (Auto) Lymph % (Auto) Borden % (Auto) Eos % (Auto) Baso % (Auto) Neut # (Auto) Lymph # (Auto) Borden # (Auto) Eos # (Auto) Baso # (Auto) Immature Gran # (Auto) PT INR APTT PTT Ratio Sodium 141 Potassium 3.8 Chloride 107 Carbon Dioxide 28 Anion Gap 6 BUN 16 Creatinine 0.75 Est Cr Clr Drug Dosing 56.7 Est GFR ( Amer) 82.5 Est GFR (Non-Af Amer) 71.2 BUN/Creatinine Ratio 21.3 H Glucose 87 Calcium 9.4 Magnesium Total Bilirubin AST ALT Alkaline Phosphatase Troponin I High Sens Total Protein Albumin Globulin Albumin/Globulin Ratio TSH Urine Color Urine Appearance Urine pH Ur Specific Burkett Urine Protein Urine Glucose (UA) Urine Ketones Urine Blood Urine Nitrite Urine Bilirubin Urine Urobilinogen Ur Leukocyte Esterase Urine WBC (Auto) Urine RBC (Auto) U Hyaline Cast (Auto) U Epithel Cells (Auto) Urine Bacteria (Auto) SARS-CoV-2, RNA, NAAT ECG Additional Comments: 16-JUN-2021 06:14:26 [facility] ROUTINE RETRIEVAL Sinus bradycardia Otherwise normal ECG When compared with ECG of 15-JUN-2021 10:43, No significant change was found, no QT prolongation (1) HTN (hypertension) Hypertension type: essential hypertension Qualified Code(s): I10 - Essential (primary) hypertension
--- NOTE | 2021-06-16 11:18 | Hospitalist Progress Note ---
Date of Service June 16, 2021 Assessment & Plan (1) Dizziness: Plan: 86-year-old female with history of hypertension, paroxysmal atrial fibrillation with tachybradycardia syndrome atrial flutter, supraventricular tachycardia, mitral valve regurgitation CKD stage III resenting with lightheadedness/dizziness. Dizziness in the setting of paroxysmal atrial fibrillation, tachybradycardia syndrome EKG showing sinus bradycardia at 49 Current heart rate in the 50s Hold sotalol INR 3.0, hold Coumadin Cardiology service consulted 06/16 Sotalol decreased to 40mg BID Augmentin started for possible sinusitis? Otitis media? PT ordered for Lamonte Maneuver Hypertension Lisinopril increased to 5mg BID CKD stage III Stable Disposition Lives at home Anticipate discharge to home medically stable PT OT evaluation plan of care discussed with patient in detail and at length all questions answered she is understanding, agreeable, comfortable with the plan of care Admission and Anticipated Discharge Date Admission Date: June 15, 2021 Subjective ff up for dizziness, etc seen resting in bed, comfortable states she felt dizzy getting up today no chest pain, dyspnea, palpitations still has R ear fullness/discomfort, nasal congestion no fever/chills no other symptoms Review of Systems Review of Systems: all noted and negative except for above Physical Exam Physical Exam: General- oriented x 3, not in distress, speaks in sentences with no effort or accessory muscle use Eyes- anicteric Neck- no JVD (+) R submandibular lymphadenopathy R ear: no discharge, tenderness Lungs- clear breath sounds bilaterally, no rales/wheezes Heart- normal rate, regular rhythm; no murmurs Abdomen- normal bowel sounds, nondistended, soft, nontender Extremities- no pretibial edema, no calf tenderness Neuro- alert, oriented x 3; no gross focal neurologic deficits Skin- warm & dry Results & Data Results & Data ([facility]) Vital Signs (Past 12 Hours) Vital Signs Temp Pulse Resp BP Pulse Ox 06/16/21 08:02 36.6 C 61 18 161/75 H 96 06/16/21 03:00 36.9 C 69 16 152/71 H 96 06/16/21 00:16 36.6 C 57 L 18 146/70 H 93 06/15/21 23:21 36.6 C 57 L 18 146/70 H 93 all noted and reviewed including below
[2021-06-16] MEDS: SOTALOL HCL 80 MG TAB PO SCH ×2 (12:10→20:11)
[2021-06-16] MEDS: POTASSIUM CHLORIDE 10 MEQ TABCR PO SCH (12:10)
[2021-06-16] MEDS: lisinopril 5 MG TAB PO SCH (20:12)
--- NOTE | 2021-06-17 06:27 | Electrocardiogram Report ---
Test Reason : Blood Pressure : / mmHG Vent. Rate : 049 BPM Atrial Rate : 049 BPM P-R Int : 182 ms QRS Dur : 084 ms QT Int : 476 ms P-R-T Axes : 085 057 027 degrees QTc Int : 429 ms Sinus bradycardia Otherwise normal ECG When compared with ECG of 29-JAN-2020 20:44, Premature atrial complexes are no longer Present Criteria for Septal infarct are no longer Present Confirmed by Gerardo Godfrey ([id number]) on 06/17/2021 6:26:46 AM Referred By: Confirmed By:Gerardo Godfrey
--- NOTE | 2021-06-17 06:58 | Electrocardiogram Report ---
Test Reason : Blood Pressure : / mmHG Vent. Rate : 055 BPM Atrial Rate : 055 BPM P-R Int : 168 ms QRS Dur : 092 ms QT Int : 462 ms P-R-T Axes : 089 078 041 degrees QTc Int : 441 ms Sinus bradycardia Otherwise normal ECG When compared with ECG of 15-JUN-2021 10:43, (unconfirmed) No significant change was found Confirmed by Gerardo Godfrey ([id number]) on 06/17/2021 6:58:22 AM Referred By: REFERRED SELF Confirmed By:Gerardo Godfrey
[2021-06-17 07:10] LABS: INR 1.6 (0.9-1.1); Prothrombin Time 17.1 Seconds (9.0-12.0)
[2021-06-17] MEDS: SOTALOL HCL 80 MG TAB PO SCH (08:48)
[2021-06-17] MEDS: lisinopril 5 MG TAB PO SCH (08:48)
[2021-06-17] MEDS: ATORVASTATIN 10 MG TAB PO SCH (08:55)
[2021-06-17] MEDS: hydroCHLOROthiazide 25 MG TAB PO SCH (08:55)
[2021-06-17] MEDS: PANTOprazole 40 MG TAB PO SCH (08:56)
[2021-06-17] MEDS: POTASSIUM CHLORIDE 10 MEQ TABCR PO SCH (08:56)
[2021-06-17] MEDS: AMOXICILLIN/CLAVULANATE 875 MG TAB PO SCH (08:57)
--- NOTE | 2021-06-17 11:26 | Cardiology Progress Note ---
Date of Service June 17, 2021 Assessment & Plan (1) Dizziness: (2) Paroxysmal atrial fibrillation: (3) H/O tachycardia-bradycardia syndrome: (4) HTN (hypertension): Plan: 86 year old female admitted with recurrent dizziness without syncope or near syncope. Symptoms appear precipitated by upper respiratory tract and middle ear infection. No symptomatic bradycardia or recurrent atrial fibrillation since admission. Sotalol reduced to 40 mg twice daily. Lisinopril titrated to 5 mg twice daily to improve blood pressure control. No indication for urgent pacemaker implantation at this time. Patient has an electrophysiology consultation scheduled in the coming weeks (06/28/2021). No further inpatient cardiac testing or intervention. Fall precautions advised she may be discharged home from a cardiovascular perspective. Admission and Anticipated Discharge Date Admission Date: June 15, 2021 Subjective Patient seen examined the bedside. Reports dizziness at home prior to admission. Initial episode occurred while lying in bed and turning to her right side. Symptoms intermittently reproduced with lying flat. She was forced to sleep seated near upright to avoid dizziness. Denies syncope or near syncope. Telemetry reveals sinus rhythm and sinus bradycardia since admission. Sotalol reduced to 40 mg twice daily. No symptomatic bradycardia, significant pauses, or paroxysmal atrial fibrillation recorded. Review of Systems Review of Systems: All systems reviewed & are unremarkable except as noted in Subjective Physical Exam Constitutional: well developed and well nourished; no acute distress Respiratory: normal respiratory effort; no respiratory distress, no labored breathing and no retractions Auscultation: no crackles, no rales, no rhonchi and no wheezes Cardiovascular: Rate/Rhythm: regular rate and regular rhythm Heart Sounds: normal S1 and normal S2; no murmur and no cardiac rub Vessels: no JVD and no carotid bruit Extremities: no edema Gastrointestinal (Abdomen): Inspection/Auscultation: abdomen normal to inspection and normal bowel sounds; abdomen not distended Percussion/Palpation: abdomen soft; abdomen nontender and no guarding Neurologic: CN's II-XI intact bilaterally and moves all extremities; no focal motor deficits Psychiatric: A+Ox3, euthymic affect Results & Data ([facility]) Vital Signs (Past 12 Hours) Vital Signs Temp Pulse Resp BP Pulse Ox 06/17/21 07:43 36.8 C 74 20 128/67 100 06/17/21 05:09 36.6 C 59 L 16 133/77 95 06/17/21 00:14 36.6 C 59 L 19 151/59 H 93 (1) HTN (hypertension) Hypertension type: essential hypertension Qualified Code(s): I10 - Essential (primary) hypertension
[2021-06-17] MEDS ORDERED: WARFARIN SOD 5 MG TAB PO ONE (17:01)
--- NOTE | 2021-06-17 17:09 | Hospitalist Progress Note ---
Date of Service June 17, 2021 Assessment & Plan (1) Dizziness: Plan: 86-year-old female with history of hypertension, paroxysmal atrial fibrillation with tachybradycardia syndrome atrial flutter, supraventricular tachycardia, mitral valve regurgitation CKD stage III resenting with lightheadedness/dizziness. Dizziness in the setting of paroxysmal atrial fibrillation, tachybradycardia syndrome EKG showing sinus bradycardia at 49 heart rate in the 50s Held sotalol Cardiology service consulted Sotalol decreased to 40mg BID HR improved, dizziness resolved Augmentin started for possible sinusitis? Otitis media? needs 5 more days PT ordered for Lamonte Maneuver: negative cleared for d/c home Hypertension Lisinopril increased to 5mg BID HCTZ continued K supplement added CKD stage III Stable Disposition d/c home PCP ff up in 1 week Personnel Clerk in 2 weeks plan of care discussed with patient in detail and at length all questions answered she is understanding, agreeable, comfortable with the plan of care Admission and Anticipated Discharge Date Admission Date: June 15, 2021 Subjective ff up for dizziness, etc seen resting in bed, comfortable sitting up having dinner in good spirits states dizziness has resolved no chest pain, dyspnea, palpitations ear pain and sore throat resolved no other symptoms states she is ready and would like to be discharged today Review of Systems Review of Systems: all noted and negative except for above Physical Exam Physical Exam: General- oriented x 3, not in distress, speaks in sentences with no effort or accessory muscle use Eyes- anicteric Neck- no JVD Lungs- clear breath sounds bilaterally, no rales/wheezes Heart- normal rate, regular rhythm; no murmurs Abdomen- normal bowel sounds, nondistended, soft, nontender Extremities- no pretibial edema, no calf tenderness Neuro- alert, oriented x 3; no gross focal neurologic deficits Skin- warm & dry Results & Data Results & Data ([facility]) Vital Signs (Past 12 Hours) Vital Signs Temp Pulse Resp BP Pulse Ox 06/17/21 16:03 36.9 C 56 L 16 124/62 96 06/17/21 12:10 36.7 C 73 16 107/63 97 06/17/21 07:43 36.8 C 74 20 128/67 100 06/17/21 05:09 36.6 C 59 L 16 133/77 95 all noted and reviewed including below
--- NOTE | 2021-06-17 17:13 | Discharge Summary ---
Date of Service June 17, 2021 Admission HPI Per Admitting Provider 86-year-old female with history of hypertension, paroxysmal atrial fibrillation with tachybradycardia syndrome atrial flutter, supraventricular tachycardia, mitral valve regurgitation CKD stage III resenting with lightheadedness/dizziness. Patient reports several day history of lightheadedness/dizziness not related to head position, occurs at rest and also with ambulation Denies presyncope or syncope episodes. No chest pain, shortness of breath, palpitations, dizziness. Also reports several day history of runny nose, some sore throat and ear pain. At the ER, EKG showing sinus bradycardia, heart rate 49. CT head: No acute CVA. On exam, patient seen resting in bed, comfortable, no symptoms. Admission Exam Per Admitting Provider General- oriented x 3, not in distress, speaks in sentences with no effort or accessory muscle use Head- atraumatic Eyes- PERRL, EOMI, anicteric ENT- oropharynx clear Neck- supple, no JVD, no adenopathy, no thyromegaly; carotids +2/2, no bruits appreciated Lungs- clear to auscultation bilaterally, no rales/wheezes Heart- bradycardic, regular rhythm; no murmur, no gallop, no rub appreciated Abdomen- normal bowel sounds, nondistended, soft, nontender, no masses or hepatosplenomegaly Extremities- no pretibial edema, no calf tenderness; peripheral pulses intact Neuro- alert, oriented x 3; CN 2-12 grossly intact; motor 5/5 bilaterally;sensation 100% on all extremities; no other gross focal neurologic deficits Skin- warm & dry Principal Diagnosis DIZZINESS, LIKELY SECONDARY TO BRADYCARDIA Discharge Exam General- oriented x 3, not in distress, speaks in sentences with no effort or accessory muscle use Eyes- anicteric Neck- no JVD (+) R submandibular lymphadenopathy R ear: no discharge, tenderness Lungs- clear breath sounds bilaterally, no rales/wheezes Heart- normal rate, regular rhythm; no murmurs Abdomen- normal bowel sounds, nondistended, soft, nontender Extremities- no pretibial edema, no calf tenderness Neuro- alert, oriented x 3; no gross focal neurologic deficits Skin- warm & dry Discharge Data Allergies Allergy/AdvReac Type Severity Reaction Status Date / Time rofecoxib Allergy Unknown Face fiery Verified 03/31/21 22:49 red simvastatin Allergy Unknown Muscle Verified 05/16/20 22:49 aches. Sulfa (Sulfonamide Allergy Unknown Hives Verified 05/16/20 22:49 Antibiotics) tetracycline Allergy Unknown Hives Verified 05/16/20 22:49 Consultations 06/15/21 13:46 ED Decision to Admit Stat 06/15/21 16:56 Consult Cardiology Routine Ordered Studies 06/15/21 10:47 CT head/brain wo con Stat CT head/brain wo con CLINICAL HISTORY: 86 years-old Female with weakness. Acute weakness with dizziness TECHNIQUE: Multiple axial CT images of the head were obtained without contrast. A dose lowering technique was utilized adhering to the principles of ALARA. CT DOSE: 614.27 mGy.cm COMPARISON: Head CT 01/01/2020. FINDINGS: No acute intracranial hemorrhage, midline shift, intra-axial mass, hydrocephalus, territorial ischemia or abnormal extra-axial collection. 7 mm falx cerebri lipoma. Age-related involutional changes. Senescent calcifications of the basal ganglia with cerebral vascular calcifications. White matter hypode nsities suggest chronic microvascular ischemic disease. The calvarium is intact. 1.9 x 0.4 cm right forehead scalp contusion. Prior bilateral lens repair. The paranasal sinuses, mastoid air cells, and middle ear cavities are clear. IMPRESSION: No acute intracranial abnormality. ACT 112: Negative or not required by law. Hospital Course (1) Dizziness: 86-year-old female with history of hypertension, paroxysmal atrial fibrillation with tachybradycardia syndrome atrial flutter, supraventricular tachycardia, mitral valve regurgitation CKD stage III resenting with lightheadedness/dizziness. Dizziness in the setting of paroxysmal atrial fibrillation, tachybradycardia syndrome EKG showing sinus bradycardia at 49 heart rate in the 50s Held sotalol Cardiology service consulted Sotalol decreased to 40mg BID HR improved, dizziness resolved Augmentin started for possible sinusitis? Otitis media? needs 5 more days PT ordered for Lamonte Maneuver: negative cleared for d/c home Hypertension Lisinopril increased to 5mg BID HCTZ continued K supplement added CKD stage III Stable Disposition d/c home PCP ff up in 1 week Claims Auditor in 2 weeks plan of care discussed with patient in detail and at length all questions answered she is understanding, agreeable, comfortable with the plan of care Total Time Total Time Spent Total Time Spent (In Minutes): >30 minutes Discharge Plan Discharge Items Patient Disposition: Home - Self-Care Reason For Visit: DIZZINESS,BRADYCARDIA Discharge Diagnosis: DIZZINESS LIKELY SECONDARY TO BRADYCARDIA Activity: As commented below Activity Comment: INCREASE GRADUALLY TOLERATED Lifting: Wait until after follow-up appointment Exercise/Sports: Wait until after follow-up appointment Driving/Machine Use: NO DRIVING UNTIL RE-EVALUATED AND ALLOWED BY PRIMARY CARE PHYSICIAN Non-emergency contact: Primary Care Provider and Claims Auditor Call non-emergency contact if: you have any medication questions, your symptoms worsen, your pain is not controlled, your pain is worsening, your pain is unusual for you, your pain is concerning for you and you have a fever Follow-up/Referrals: Pam Richardson DO [Primary Care Provider] - (Visit Information Date & Time 06/20/2021 10:20 AM Provider Hayden Poon MD Department [facility] ) Mandy Ramsey PA-C [Physician World Language Teacher] - (Date & Time 06/19/2021 3:00 PM Provider Mandy Ramsey PA-C Department Cardiology, [facility] ) Diet: Heart Healthy Addtl Attending Provider Instructions: PLEASE REFER TO YOUR NEW MEDICATION LIST AND FOLLOW INSTRUCTIONS CAREFULLY. CHANGES TO YOUR MEDICATIONS INCLUDE: DECREASE SOTALOL FROM 120MG DAILY TO 40MG TWICE A DAY. INCREASE LISINOPRIL FROM 5MG ONCE A DAY TO TWICE A DAY. START POTASSIUM SUPPLEMENT DAILY. AUGMENTIN X 6 DAYS.- ANTIBIOTIC PLEASE CALL YOUR PRIMARY CARE PHYSICIAN OR RETURN TO THE ER IF WITH WORSENING OF SYMPTOMS, INCLUDING DIZZINESS, WEAKNESS, SHORTNESS OF BREATH, CHEST PAIN. FOLLOW UP WITH PRIMARY CARE PHYSICIAN IN 1 WEEK. FOLLOW UP WITH BATCH FREEZER OPERATOR IN 2 WEEKS. Pending Studies at Discharge: No Stand-Alone Forms: My [employer], Smoking Cessation Medications and DC Order Prescriptions: New amoxicillin-pot clavulanate 875-125 mg tablet 1 tab PO BID Qty: 11 RF: 0 sotalol 80 mg Tablet 40 mg PO BID 30 Days Qty: 30 RF: 1 potassium chloride 10 mEq Tablet,Er Particles/Crystals 10 meq PO DAILY 30 Days Qty: 30 RF: 1 Continued atorvastatin 10 mg tablet 10 mg PO QAM RF: 0 warfarin 5 mg tablet 5 mg PO QPM RF: 0 omeprazole 20 mg capsule,delayed release(DR/EC) 20 mg PO QAM RF: 0 hydrochlorothiazide 25 mg tablet 12.5 mg PO QAM RF: 0 acetaminophen [Tylenol Extra Strength] 500 mg tablet 500 mg PO Q4H PRN (Reason: Fever Or Pain) RF: 0 Changed lisinopril 5 mg tablet 5 mg PO BID 30 Days Qty: 60 RF: 1 Discontinued lisinopril 5 mg tablet 5 mg PO QAM RF: 0 sotalol 80 mg tablet 120 mg PO DAILY RF: 0 Discharge Orders: Discharge Order (Routine); Ordered 06/17/21 Ordered By: Zaid Hester Admission Data Admit Date/Time: 06/15/21 13:48 Attending Provider: Zaid Hester Admit Provider: Zaid Hester Primary Care Provider: Pam Richardson Other Providers: Zaid Hester ; Stan Schaeffer
[2021-06-17] MEDS ORDERED: AMOXICILLIN/CLAVULANATE 875 MG TAB PO SCH (21:00)
--- NOTE | 2021-06-19 13:38 | Electrocardiogram Report ---
Test Reason : Blood Pressure : / mmHG Vent. Rate : 051 BPM Atrial Rate : 051 BPM P-R Int : 180 ms QRS Dur : 088 ms QT Int : 476 ms P-R-T Axes : 068 053 061 degrees QTc Int : 438 ms Sinus bradycardia Otherwise normal ECG When compared with ECG of 16-JUN-2021 06:14, (unconfirmed) No significant change was found Confirmed by Gerardo Godfrey ([id number]) on 06/19/2021 1:37:42 PM Referred By: REFERRED SELF Confirmed By:Gerardo Godfrey
== END 2021-06-17 18:25 | disposition home or self-care (01) | DRG 309 ==
LOC: ED 10:05 → 2S 13:48